=== PATIENT | male | born 1965 | race Caucasian/White ===

== ENCOUNTER → 2017-10-01 13:52 | Outpatient (CLI) | payer MEDICAID, SELFPAY ==
[2017-10-01 14:02] LABS: Microscopic, Urine URINE MICROSCOPIC (MICROSCOPIC)
--- NOTE | 2017-10-01 14:26 | XR_ITS ---
XR chest 2V HISTORY: ITS.REASON: HTN, PRE OP ORDERING PHYSICIAN: Eros Boykin MD PATIENT AGE: 52 years COMPARISON: None available FINDINGS: The cardiomediastinal silhouette and pulmonary vascularity are within normal limits. The lungs are clear without infiltrates, suspicious nodules, or pleural effusions. No acute bony abnormalities. There are degenerative changes in the lower thoracic spine and acromioclavicular joints IMPRESSION: No acute finding
[2017-10-01 14:31] LABS: Basophils # 0.1 K/mm3 (0-0.2); Basophils % 0.8 % (0.1-2.0); Eosinophils # 0.4 K/mm3 (0.0-0.4); Eosinophils % 4.6 % (0.1-12.0); Hematocrit 37.8 % (42.0-52.0); Hemoglobin 11.8 g/dL (14.1-18.0); Lymphocytes # 2.8 K/mm3 (0.7-4.5); Lymphocytes % 33.8 K/mm3 (10-50); Mean Corpuscular HGB Conc 31.1 g/dL (31.8-35.4); Mean Corpuscular Hemoglobin 27.5 pg (27.0-31.2); Mean Corpuscular Volume 88.4 fl (80-94); Mean Platelet Volume 9.4 fl (7.4-10.4); Monocytes # 0.4 K/mm3 (0.1-1.0); Monocytes % 5.2 % (1.7-9.3); Neutrophils # 4.7 K/mm3 (1.8-7.8); Neutrophils % 55.7 % (37.0-80.0); Platelet Count 368 K/mm3 (142-424); Red Blood Count 4.28 M/mm3 (4.60-6.20); Red Cell Distribution Width 13.6 % (11.5-17.5); White Blood Count 8.4 K/mm3 (4.8-10.8)
[2017-10-01 14:34] LABS: Appearance,Urine CLEAR (Clear); Bilirubin,Urine Negative (Negative); Blood, Urine Negative (Negative); Color,Urine YELLOW (Yellow); Glucose,Urine (UA) Negative (Negative); Ketones,Urine Negative (Negative); Leukocyte Esterase,Urine Negative (Negative); Nitrate,Urine Negative (Negative); Protein,Urine TRACE (Negative); Specific Gravity, Urine 1.025 (1.005-1.030); Urobilinogen,Urine 0.2 EU/dl (0.2)
[2017-10-01 15:43] LABS: Bacteria,Urine 1+ /lpf; Mucus,Urine 2+ /lpf; Sperm,Urine 3+ /lpf; Squamous Epithelial Cell,Urine TNTC #/hpf (0-5); WBC,Urine Occasional #/hpf (0-3)
[2017-10-01 16:39] LABS: Alanine Aminotransferase 31 U/L (12-78); Albumin Level 3.5 gm/dL (3.4-5.0); Albumin/Globulin Ratio 1.2 (1.1-1.8); Alkaline Phosphatase 75 U/L (46-116); Anion Gap 10.1 mEq/L (5-15); Aspartate Amino Transferase 24 U/L (15-37); Blood Urea Nitrogen 15 mg/dL (7-18); Calcium 8.9 mg/dL (8.5-10.1); Carbon Dioxide 30 mmol/L (21.0-32.0); Chloride 102 mmol/L (98-107); Creatinine,Serum 1.15 mg/dL (0.70-1.30); Estimated Glomerular Filt Rate > 60 ml/min (>60); GFR (African American) > 60 ML/MIN (>60); Glucose 91 mg/dL (74-106); Potassium 4.1 mmoL/L (3.5-5.1); Sodium 138 mmol/L (136-145); Total Protein,Serum 6.5 gm/dL (6.4-8.2)
[2017-10-01 16:49] LABS: Bilirubin,Total 0.1 mg/dL (0.2-1.0)
== END ==
PROVIDERS: PCP Nurse Practitioner Family; Visit Provider Orthopaedic Surgery
DX: M17.11 Unilateral primary osteoarthritis, right knee (principal); Z01.818 Encounter for other preprocedural examination
CPT/HCPCS: 36415; 71046; 80053; 81001; 85025; 93005

== ENCOUNTER → 2017-10-25 13:50 | Outpatient (CLI) | payer MEDICAID, SELFPAY ==
[2017-10-25 16:23] LABS: Basophils # 0.1 K/mm3 (0-0.2); Basophils % 0.6 % (0.1-2.0); Eosinophils # 0.4 K/mm3 (0.0-0.4); Eosinophils % 4.2 % (0.1-12.0); Hematocrit 42.3 % (42.0-52.0); Lymphocytes # 2.4 K/mm3 (0.7-4.5); Mean Corpuscular Hemoglobin 29.2 pg (27.0-31.2); Mean Corpuscular Volume 88.3 fl (80-94); Mean Platelet Volume 9.9 fl (7.4-10.4); Monocytes # 0.5 K/mm3 (0.1-1.0); Monocytes % 5.9 % (1.7-9.3); Neutrophils # 5.3 K/mm3 (1.8-7.8); Neutrophils % 61.3 % (37.0-80.0); Platelet Count 381 K/mm3 (142-424); Red Blood Count 4.79 M/mm3 (4.60-6.20); White Blood Count 8.7 K/mm3 (4.8-10.8)
[2017-10-25 17:25] LABS: Alanine Aminotransferase 47 U/L (12-78); Albumin Level 3.7 gm/dL (3.4-5.0); Alkaline Phosphatase 86 U/L (46-116); Anion Gap 14.4 mEq/L (5-15); Aspartate Amino Transferase 29 U/L (15-37); Bilirubin,Total 0.2 mg/dL (0.2-1.0); Blood Urea Nitrogen 15 mg/dL (7-18); Calcium 8.9 mg/dL (8.5-10.1); Carbon Dioxide 28 mmol/L (21.0-32.0); Chloride 103 mmol/L (98-107); Creatinine,Serum 1.04 mg/dL (0.70-1.30); Estimated Glomerular Filt Rate 75 ml/min (>60); Free T4 (Free Thyroxine) 0.92 ng/dl (0.76-1.46); GFR (African American) 91 ML/MIN (>60); Globulin 3.6 gm/dl (1.3-3.2); Glucose 179 mg/dL (74-106); Potassium 3.4 mmoL/L (3.5-5.1); Sodium 142 mmol/L (136-145); Thyroid Stimulating Hormone 3.59 uIU/ml (0.358-3.740); Total Protein,Serum 7.3 gm/dL (6.4-8.2)
== END ==
PROVIDERS: PCP Nurse Practitioner Family; Visit Provider Nurse Practitioner Family
DX: M25.562 Pain in left knee (principal); Z01.818 Encounter for other preprocedural examination
CPT/HCPCS: 36415; 80053; 84439; 84443; 85025; 86850

== ENCOUNTER 2017-10-26 17:31 | Inpatient (IN) | payer MEDICAID, SELFPAY ==
[2017-10-01 14:31] VITALS: BMI 41.5
[2017-10-26] VITALS (18 sets, daily range): BP systolic 126–163; BP diastolic 70–96; PULSE 83–108; RESP 16–18; TEMP 36.1–43; O2SAT 94–98
--- NOTE | 2017-10-26 10:06 | HMH.ANESCL ---
[facility] Anesthesia Checklist - Patient Identification Patient Identification: Arm Band, Verbal (Name & ) - Structural Data Admitted From: Home Planned Operative Procedure/s: total knee Consent for Planned Operative Procedure(s) Verified: Yes Verified Documents: Surgical Consent - NPO Status Verified Time NPO: 00:00 - Chart Verification Results Verified: CBC, BMP - Additional verifications Patient : No Anesthesia Reactions: No Hx Blood Transfusions: No Blood Transfusion Reaction: No Cephalosporin Allergy: No Previous Colonoscopy: No - Cardiovascular Assessment Heart Sounds: S1 & S2 Pulse Strength: Strong Pulse Rhythm: Regular Peripheral Edema: No - Airway Assessment C-Spine Mobility Assessed: Yes TMJ Mobility Assessed: Yes Dentition: Edentulous - Neurological Assessment Level of Consciousness: Awake, Alert, Appropriate Hx Seizures: No Numbness or tingling in extremities: No - Anesthesia Plan Anesthesia Risk discussed: Yes ASA Class: III Anesthesia Type: General [facility] Anesthesia HX I have reviewed the patient's past medical history: Yes Medical History: Reports:: Anxiety, Gastroesophageal Reflux Disease(GERD), Hypertension Denies:: Diabetes Mellitus Type 1, Diabetes Mellitus Type 2, Seizures Other Medical History: Reports: Arthritis. Denies: Blood Transfusion Reaction Laterality Cases: Bilateral: Arthroscopy Knee Other Surgeries: Yes: Appendectomy, Colonoscopy, Other (hemorrhoidectomy) Amputation: No Fractures: Yes *Family Hx:: Asthma, Diabetes, Hypertension, Heart Attack
--- NOTE | 2017-10-26 16:11 | HMH.ANESI ---
[facility] Anesthesia Record Part I Intake, IV Amount: 2,200 Estimated blood loss (mL): 20 Urine output (mL): 0 Blood Pressure: 154/90 SaO2: 96 Pulse Rate: 94 Respiratory Rate: 16 Temperature: 97.9 F Patient is:: Drowsy, Stable Stable to PACU at:: 16:10
--- NOTE | 2017-10-26 16:11 | HMH.ANESII ---
[facility] Anesthesia Record Part II Discharge Time: 16:40 Destination: 2nd floor PACU nurse assessment reviewed?: Yes Patient Condition:: Good Anesthesia Complications:: None
--- NOTE | 2017-10-26 16:19 | XR_ITS ---
XR knee RT 2V Ordering Physician: Eros Boykin MD Patient Age: 52 years: Male HISTORY: ITS.REASON: post op TKA Postop portable right knee. Total knee arthroplasty TECHNIQUE: AP and crosstable lateral view right knee postop COMPARISON :Preoperative right knee 05/20/2017 FINDINGS Right PEG a now in place with components good position well seated and satisfactory relationships. No evidence of fracture nor loosening. Postoperative changes are evident with fluid and air within the anterior joint and suprapatellar bursa evident. Soft tissue changes from recent surgery as well. IMPRESSION: Right PEG a now in place appears satisfactory. Good position Postoperative changes
--- NOTE | 2017-10-26 16:31 | HMH.OPNOTE ---
Date of procedure: 10/29/17 Pre-op Diagnosis:: Degenerative arthritis RIGHT knee Post-op diagnosis:: same Procedure performed:: Cemented total knee arthroplasty, RIGHT knee Surgeon:: Eros Boykin MD Step Finisher(s):: Dr. Hitchcock COTTON PICKING MACHINE OPERATOR:: Gregorio Altamirano Anesthesia: GETA Estimated blood loss (mL): 20 Clinical Note:: Patient is a 52-year-old male with end-stage tricompartmental osteoarthritis with [id number] osteoarthritis of the medial compartment with a progressive varus deformity and flexion contracture presented with unremitting severe pain not relieved by conservative management. The pain is advanced to the point that it is becoming a hazard for the patient with risk of falling and injuring himself. Total knee arthroplasty is indicated to relieve the pain, improve function, reduce the risk of falls and improve quality of life. Operative findings:: As noted on the preoperative evaluation, the knee joint had a fixed flexion of 15? and fixed varus deformity of 10?. As seen on the x-rays, the the knee joint had tricompartmental degenerative changes with medial and patellofemoral compartments showing more advanced changes with [id number] appearance. The menisci and anterior cruciate ligament were significantly degenerated. He previously had arthroscopic knee surgery with partial medial meniscectomy and only remnant of the medial meniscus was present. The posteriorly cruciate ligament was intact and stable. There was extensive osteophyte formation over all 3 compartments. Bone quality was good. Operative note:: On the day of the surgery the patient and his were met in the preoperative area. I examined the patient and reviewed the clinical and x-ray findings with the patient. I again discussed the diagnosis, natural history and management options in detail including both nonsurgical and surgical. Patient has end-stage degenerative arthritis of his RIGHT knee and has failed to respond satisfactorily to conservative management so far and has opted for a RIGHT total knee arthroplasty. His knee joint is also giving out and he is at risk of falls resulting in fractures. He mobilizes with a cane. We again discussed the details of the procedure, risks and benefits and alternatives in detail. The complications discussed include but are not limited to infection, injury to nerves and blood vessels including injury to popliteal artery, injury to tendons and ligaments, DVT and PE, fat embolism, intraoperative fracture, limb length inequality, patella fracture, patellofemoral instability, patellar clunk syndrome, quadriceps and patellar tendon rupture, implant failure, component loosening, periprosthetic femur and tibia fractures, stiffness(arthrofibrosis), limp, incomplete relief of pain, incomplete functional recovery, likely need for further surgery in future including revision and anesthetic complications including heart attack, stroke and even . We discussed how any of these events can be devastating. We have discussed nonsurgical alternatives as well. Patient understands and wishes to proceed with a RIGHT total knee arthroplasty. I believe that he is fully informed as to the risks, benefits, and alternatives including nonsurgical alternatives. We also discussed the postoperative course including the rehab and physical therapy required. He lives with his family and is planning to go back home with home health after surgery. A physical examination was performed and documented. Consent form was reviewed and signed. The patient was then brought to the operating room and a general anesthesia was administered by the slab miller operator. Prior to that patient had femoral and sciatic nerve blocks in the pre-anesthetic area. The slab miller operator felt he got a good femoral block but not so good sciatic nerve block. The patient was then positioned supine on the operating table. All the bony prominences were appropriately padded. A well-padded tourniquet cuff was placed high over the
--- NOTE | 2017-10-26 16:48 | P.OP_ITS ---
Date of procedure: 10/29/17 Pre-op Diagnosis:: Degenerative arthritis RIGHT knee Post-op diagnosis:: same Procedure performed:: Cemented total knee arthroplasty, RIGHT knee Surgeon:: Eros Boykin MD Automobile Designer(s):: Dr. Hitchcock ADVANCE AGENT:: Gregorio Altamirano Anesthesia: GETA Estimated blood loss (mL): 20 Clinical Note:: Patient is a 52-year-old male with end-stage tricompartmental osteoarthritis with [id number] osteoarthritis of the medial compartment with a progressive varus deformity and flexion contracture presented with unremitting severe pain not relieved by conservative management. The pain is advanced to the point that it is becoming a hazard for the patient with risk of falling and injuring himself. Total knee arthroplasty is indicated to relieve the pain, improve function, reduce the risk of falls and improve quality of life. Operative findings:: As noted on the preoperative evaluation, the knee joint had a fixed flexion of 15? and fixed varus deformity of 10?. As seen on the x-rays, the the knee joint had tricompartmental degenerative changes with medial and patellofemoral compartments showing more advanced changes with [id number] appearance. The menisci and anterior cruciate ligament were significantly degenerated. He previously had arthroscopic knee surgery with partial medial meniscectomy and only remnant of the medial meniscus was present. The posteriorly cruciate ligament was intact and stable. There was extensive osteophyte formation over all 3 compartments. Bone quality was good. Operative note:: On the day of the surgery the patient and his were met in the preoperative area. I examined the patient and reviewed the clinical and x-ray findings with the patient. I again discussed the diagnosis, natural history and management options in detail including both nonsurgical and surgical. Patient has end- stage degenerative arthritis of his RIGHT knee and has failed to respond satisfactorily to conservative management so far and has opted for a RIGHT total knee arthroplasty. His knee joint is also giving out and he is at risk of falls resulting in fractures. He mobilizes with a cane. We again discussed the details of the procedure, risks and benefits and alternatives in detail. The complications discussed include but are not limited to infection, injury to nerves and blood vessels including injury to popliteal artery, injury to tendons and ligaments, DVT and PE, fat embolism, intraoperative fracture, limb length inequality, patella fracture, patellofemoral instability, patellar clunk syndrome, quadriceps and patellar tendon rupture, implant failure, component loosening, periprosthetic femur and tibia fractures, stiffness(arthrofibrosis), limp, incomplete relief of pain, incomplete functional recovery, likely need for further surgery in future including revision and anesthetic complications including heart attack, stroke and even . We discussed how any of these events can be devastating. We have discussed nonsurgical alternatives as well. Patient understands and wishes to proceed with a RIGHT total knee arthroplasty. I believe that he is fully informed as to the risks, benefits, and alternatives including nonsurgical alternatives. We also discussed the postoperative course including the rehab and physical therapy required. He lives with his family and is planning to go back home with home health after surgery. A physical examination was performed and documented. Consent form was reviewed and signed. The patient was then brought to the operating room and a general anesthesia was administered by the systems project manager. Prior to that patient had femoral and sciatic nerve blocks in the pre-anesthetic area. The systems project manager felt he got a good
--- NOTE | 2017-10-26 19:10 | PC.NURSE ---
PT FULL CODE, REPORT FROM LAURA.CRL
--- NOTE | 2017-10-26 21:10 | PC.NURSE ---
PT C/O RT EYE BURNING/ITCHING. STATES HAS SINCE RETURNING FROM SURGERY, BUT NOT LEFT ONE. HAS BEEN EXAMINED AND IRRIGATED WITH SALINE SEVERAL TIMES. ALSO HAS HAD COMPRESS ON IT. WILL CONTACT R/T RAJWINDER FLOWER.
--- NOTE | 2017-10-26 21:40 | PC.NURSE ---
SPOKE WITH DR. PENDLETON. ORDER OBTAINED FOR BENADRYL 25MG PO EVERY 6HR PRN ITCHING. MED GIVEN
--- NOTE | 2017-10-26 23:30 | PC.NURSE ---
RT KNEE IMMOBILIZER PLACED ON RT LEG, CONTINUES WITH POLAR AGUSTIN WELL
[2017-10-27] VITALS (9 sets, daily range): BP systolic 115–162; BP diastolic 68–96; PULSE 80–100; RESP 16–22; TEMP 36.7–37.2; O2SAT 92–100
--- NOTE | 2017-10-27 00:42 | PC.NURSE ---
pt has a knee mobilizer & polar pack in place on rt knee
--- NOTE | 2017-10-27 02:08 | PC.NURSE ---
pt has polar pack & knee mobilizer on rt knee
--- NOTE | 2017-10-27 04:37 | PC.NURSE ---
pt has polar pack and knee mobilizer to rt knee
--- NOTE | 2017-10-27 04:41 | PC.NURSE ---
PT ONLY SLEPT FEW SHORT INTERVALS. BEGINNING OF SHIFT C/O RT EYE BURNING/ITCHING, WAS EXTREMELY RED. HAS BEEN EXAMINED, WELL IRRIGATED WITH SALINE. CONTACTED DR. PENDLETON, OBTAINED BENADRYL ORDER. AFTER MED GIVEN. REDNESS ALMOST COMPLETELY GONE PT STATES FEELS MUCH BETTER. HAS REQUIRED EXTRA PRN PAIN MED FOR BREAKTHROUGH PAIN. PT INITIALLY WAS HAVING DIFFICULTY VOIDING., BUT HAS SINCE VOIDED 775 MLS OF THIS TIME. AT BEDSIDE. KNEE IMMOBILIZER ON. WELL POLAR AGUSTIN. PT STABLE. IV SECURE AND PATENT. WILL CONTINUE TO MONITOR. REPORT TO BE GIVEN TO ONCOMING NURSE.
[2017-10-27 07:02] LABS: Basophils % 0.1 % (0.1-2.0); Hematocrit 34.9 % (42.0-52.0); Hemoglobin 11.2 g/dL (14.1-18.0); Lymphocytes # 1.9 K/mm3 (0.7-4.5); Lymphocytes % 14.9 K/mm3 (10-50); Mean Corpuscular HGB Conc 32.1 g/dL (31.8-35.4); Mean Corpuscular Hemoglobin 28.8 pg (27.0-31.2); Mean Corpuscular Volume 89.6 fl (80-94); Mean Platelet Volume 8.6 fl (7.4-10.4); Monocytes # 0.9 K/mm3 (0.1-1.0); Monocytes % 6.9 % (1.7-9.3); Neutrophils # 10.1 K/mm3 (1.8-7.8); Platelet Count 299 K/mm3 (142-424); Red Blood Count 3.89 M/mm3 (4.60-6.20); Red Cell Distribution Width 14.4 % (11.5-17.5); White Blood Count 12.9 K/mm3 (4.8-10.8)
[2017-10-27 07:05] LABS: Anion Gap 12.6 mEq/L (5-15); Blood Urea Nitrogen 19 mg/dL (7-18); Carbon Dioxide 27 mmol/L (21.0-32.0); Chloride 104 mmol/L (98-107); Creatinine Clearance Estimated 69 mL/min (0-300); Creatinine,Serum 1.43 mg/dL (0.70-1.30); Estimated Glomerular Filt Rate 52 ml/min (>60); GFR (African American) 63 ML/MIN (>60); Glucose 123 mg/dL (74-106); Potassium 3.6 mmoL/L (3.5-5.1); Sodium 140 mmol/L (136-145)
--- NOTE | 2017-10-27 08:42 | PC.NURSE ---
PT HAS KNEE MOBILIZER IN PLACE & POLAR PACK TO RT KNEE
--- NOTE | 2017-10-27 08:58 | HMH.CONS ---
*Admission Date: 10/26/17 *Chief complaint: knee pain *History of present illness: this wm has progressive knee pain and had rt knee total replacement by dr beebe- we are asked to follow for his ongoing med issues of htn, overweight and hyperlipidemia - no diabetes or tob and no ht disease [facility] History I have reviewed the patient's past medical history: Yes Medical History: Reports:: Anxiety, Gastroesophageal Reflux Disease(GERD), Hyperlipidemia, Hypertension Denies:: Cancer, Diabetes Mellitus Type 1, Diabetes Mellitus Type 2, MRSA, Seizures Other Medical History: Reports: Arthritis. Denies: Blood Transfusion Reaction Laterality Cases: Right: Total Knee Replacement, Bilateral: Arthroscopy Knee Other Surgeries: Yes: Appendectomy, Colonoscopy, Other (hemorrhoidectomy) Amputation: No Fractures: Yes - *Social History Educational Level: Attended High School Smoking Status: Never smoker Alcohol Intake: never Occupational Status: unemployed, disabled Housing: house Household Members: spouse, children - Psychiatric History Expresses thoughts of harming self/others: None Suicide Plan Description: No Plan Pschychiatric History:: Reports:: Anxiety *Family Hx:: Asthma, Diabetes, Hypertension, Heart Attack Review of Systems - Review of Systems Review of systems:: pertinent systems reviewed and negative unless documented below - Constitutional Denies fever(s) - Eyes Denies change in vision - ENT Denies sore throat - *Cardiovascular Denies chest pain at rest, Denies chest pain with activity - *Respiratory Denies chest congestion, Denies cough, Denies coughing up blood - *Gastrointestinal Denies abdominal pain - *Musculoskeletal Reports joint pain, Reports limited joint movement, Denies joint swelling - Integumentary/Breasts Denies rash - *Neurologic Denies dizziness, Denies seizure-like activity - Psychiatric Denies anxiety, Denies depression Meds Home Medications Medication Instructions Recorded Confirmed Type Mupirocin Calcium [Bactroban Nasal 1 applic INTRANASAL BID 10/01/17 10/26/17 History 2% UD Oint 1gm] Ferrous Sulfate [Ferrous Sulfate 325 mg PO BID 10/09/17 10/26/17 History 325mg Tablet] Allergies Allergy/AdvReac Type Severity Reaction Status Date / Time No Known Allergies Allergy Verified 10/06/17 09:58 Exam Vital signs and Labs for Last 24 Hours: Temp Pulse Resp BP Pulse Ox 98.1 F 83 22 115/75 92 L 10/27/17 08:00 10/27/17 08:00 10/27/17 08:00 10/27/17 08:00 10/27/17 08:00 Laboratory Results - last 24 hr 10/27/17 06:15: WBC 12.9 H D, RBC 3.89 L, Hgb 11.2 L, Hct 34.9 L, MCV 89.6, MCH 28.8, MCHC 32.1, RDW 14.4, Plt Count 299, MPV 8.6, Neut % (Auto) 78.0, Lymph % (Auto) 14.9, [place] % (Auto) 6.9, Eos % (Auto) 0.0 L, Baso % (Auto) 0.1, Neut # (Auto) 10.1 H, Lymph # (Auto) 1.9, [place] # (Auto) 0.9, Eos # (Auto) 0.0, Baso # (Auto) 0.0 10/27/17 06:15: Sodium 140, Potassium 3.6, Chloride 104, Carbon Dioxide 27, Anion Gap 12.6, BUN 19 H D, Creatinine 1.43 H D, Estimated Creat Clear 69, Estimated GFR 52 L, Est GFR ( Amer) 63 D, Glucose 123 H I & O for Last 24 hours: Intake & Output 10/24/17 10/25/17 10/26/17 10/27/17 11:59 11:59 11:59 11:59 Intake Total 4954 / 4954 Output Total 1350 / 1350 Balance 3604 / 3604 - Constitutional no acute distress - *Routine HEENT Exam Head: Present: normocephalic, atraumatic Eye: Present: EOMI, PERRL ENT: Present: mucous membranes dry - *Routine Neck Exam Present: supple. Absent: JVD - *Routine Respiratory Exam Present: rhonchi. Absent: respiratory distress - *Routine Cardiovascular Exam Present: RRR, murmur - *Routine Abdominal Exam Present: soft. Absent: tenderness, distended - *Routine Extremities Exam Comments: s/p rt knee surg - *Routine Skin Exam Present: intact - *Routine Neurological Exam Present: alert, oriented X3, CN II-XII intact - Routine Psychiatric Exam
--- NOTE | 2017-10-27 09:01 | P.CONS_ITS ---
*Admission Date: 10/26/17 *Chief complaint: knee pain *History of present illness: this wm has progressive knee pain and had rt knee total replacement by dr beebe - we are asked to follow for his ongoing med issues of htn, overweight and hyperlipidemia - no diabetes or tob and no ht disease [facility] History I have reviewed the patient's past medical history: Yes Medical History: Reports:: Anxiety, Gastroesophageal Reflux Disease(GERD), Hyperlipidemia, Hypertension Denies:: Cancer, Diabetes Mellitus Type 1, Diabetes Mellitus Type 2, MRSA, Seizures Other Medical History: Reports: Arthritis. Denies: Blood Transfusion Reaction Laterality Cases: Right: Total Knee Replacement, Bilateral: Arthroscopy Knee Other Surgeries: Yes: Appendectomy, Colonoscopy, Other (hemorrhoidectomy) Amputation: No Fractures: Yes - *Social History Educational Level: Attended High School Smoking Status: Never smoker Alcohol Intake: never Occupational Status: unemployed, disabled Housing: house Household Members: spouse, children - Psychiatric History Expresses thoughts of harming self/others: None Suicide Plan Description: No Plan Pschychiatric History:: Reports:: Anxiety *Family Hx:: Asthma, Diabetes, Hypertension, Heart Attack Review of Systems - Review of Systems Review of systems:: pertinent systems reviewed and negative unless documented below - Constitutional Denies fever(s) - Eyes Denies change in vision - ENT Denies sore throat - *Cardiovascular Denies chest pain at rest, Denies chest pain with activity - *Respiratory Denies chest congestion, Denies cough, Denies coughing up blood - *Gastrointestinal Denies abdominal pain - *Musculoskeletal Reports joint pain, Reports limited joint movement, Denies joint swelling - Integumentary/Breasts Denies rash - *Neurologic Denies dizziness, Denies seizure-like activity - Psychiatric Denies anxiety, Denies depression Meds Home Medications Medication Instructions Recorded Confirmed Type Mupirocin Calcium [Bactroban Nasal 1 applic INTRANASAL BID 10/01/17 10/26/17 History 2% UD Oint 1gm] Ferrous Sulfate [Ferrous Sulfate 325 mg PO BID 10/09/17 10/26/17 History 325mg Tablet] Allergies Allergy/AdvReac Type Severity Reaction Status Date / Time No Known Allergies Allergy Verified 10/06/17 09:58 Exam Vital signs and Labs for Last 24 Hours: Temp Pulse Resp BP Pulse Ox 98.1 F 83 22 115/75 92 L 10/27/17 08:00 10/27/17 08:00 10/27/17 08:00 10/27/17 08:00 10/27/17 08:00 Laboratory Results - last 24 hr 10/27/17 06:15: WBC 12.9 H D, RBC 3.89 L, Hgb 11.2 L, Hct 34.9 L, MCV 89.6, MCH 28.8, MCHC 32.1, RDW 14.4, Plt Count 299, MPV 8.6, Neut % (Auto) 78.0, Lymph % ( Auto) 14.9, [place] % (Auto) 6.9, Eos % (Auto) 0.0 L, Baso % (Auto) 0.1, Neut # ( Auto) 10.1 H, Lymph # (Auto) 1.9, [place] # (Auto) 0.9, Eos # (Auto) 0.0, Baso # ( Auto) 0.0 10/27/17 06:15: Sodium 140, Potassium 3.6, Chloride 104, Carbon Dioxide 27, Anion Gap 12.6, BUN 19 H D, Creatinine 1.43 H D, Estimated Creat Clear 69, Estimated GFR 52 L, Est GFR ( Amer) 63 D, Glucose 123 H I & O for Last 24 hours: Intake & Output 10/24/17 10/25/17 10/26/17 10/27/17 11:59 11:59 11:59 11:59 Intake Total 4954 / 4954 Output Total 1350 / 1350 Balance 3604 / 3604 - Constitutional
--- NOTE | 2017-10-27 09:31 | P.CONPHA_ITS ---
[facility] Pharmacy VTE Monitoring - Patient Demographics Admission date: 10/26/17 Report Date: 10/27/17 Time: 09:30 Allergies/Adverse Reactions: Patient Allergies No Known Allergies Allergy (Verified 10/06/17 09:58) Height: 1.85 m Weight: 142.882 kg Patient Problems: Current Active Problems Overweight (Acute) HTN (hypertension) (Acute) Renal insufficiency (Acute) - VTE Risk Labs: VTE Related Lab Results Hgb 11.2 g/dL (14.1-18.0) L 10/27/17 06:15 Hct 34.9 % (42.0-52.0) L 10/27/17 06:15 Plt Count 299 K/mm3 (142-424) 10/27/17 06:15 BUN 19 mg/dL (7-18) H D 10/27/17 06:15 Creatinine 1.43 mg/dL (0.70-1.30) H D 10/27/17 06:15 Estimated Creat Clear 69 mL/min (0-300) 10/27/17 06:15 Was VTE Risk Assessment Performed: Yes VTE Score: 3 VTE Risk Level: Low Risk - Prophylaxis VTE Prophylaxis Ordered?: Yes Types of VTE Prophylaxis: IPCS Thigh High, Pharmacological Location of Applied Device: Left Leg Pharmacologic Type: Other (XARELTO ALSO ORDERED) - VTE Diagnosis Confirmed Treatment or plan recommended: Continue Current Treatment
--- NOTE | 2017-10-27 10:14 | HMH.PTEV ---
Physical Therapy Evaluation Rehab PT IP Evaluation Start: 10/27/17 09:00 Freq: DAILYP Status: Active Protocol: Document 10/27/17 09:10 PHORNE (Rec: 10/27/17 10:14 PHORNE [id number]) Subjective/History History History 52 yom adm to [facility] with right knee OA, now S/P right TKA. Subjective Subjective Pt reports c/o pain in right knee as expected post surgery. Rehab PT IP Eval Objective Appearance Patient Behavior Appropriate Cooperative Patient Orientation Person Place Time Difficulty following instructions none Speech Pattern Clear Appropriate Ambulation Patient Able to Ambulate Yes Ambulation Observation IP General Gait Pattern Observation Antalgic Gait Decrease Weight Bear (R) Ambulation Distance (feet) 15 Ambulation Assistive Device Rolling Walker Balance Ability to Arise Able, w/o using arms Sitting Balance Steady, safe Standing Balance Steady, wide stance Dynamic Sitting Balance Ability Normal Dynamic Standing Balance Ability Good Transfers Bed Transfer Ability Independent Chair Transfer Ability Contact Guard/Hand Hold Sit to Stand Bed Transfer Ability Contact Guard/Hand Hold Sit to Stand Chair Transfer Ability Contact Guard/Hand Hold Pain Right Knee Pain Intensity 5 ROM RLE PT ROM Status ABN Abnormal ROM Comment 5-75 knee ext/flex MMT RLE PT MMT ABN Abnormal MMT Grade grossly 4/5 except knee flex/ ext 2/5 Rehab PT IP prob,goals,plan Problems Date of Evaluation: 10/27/17 PT IP Problems Transfers Gait Rehab Potential Rehab Potential Good Equipment Needs Assistive Devices Rolling / Wheeled Walker Plan PT Intervention Plan Transfers Gait Therapeutic Exercise PT Plan Frequency BID Duration LOS Discharge Goals Sit to Stand Chair Transfer Ability Supervision/Stand by Ambulation Assistive Device Rolling Walker Ambulation Distance (feet) 30 Discharge Plan PT Discharge Plan Pt is appropriate to return home once medically stable. G -code Required Yes Eval Complexity Eval Charge Codes 75447 - Moderate Complexity G Codes PT Current Status Mobility PT Current S
--- NOTE | 2017-10-27 12:34 | HMH.ORTHPN ---
Subjective Date: 10/27/17 Time: 11:30 Principal diagnosis: Status post right total knee arthroplasty Interval history: Patient is status post RIGHT total knee arthroplasty post op day #1. Patient is lying down in bed. Says he is doing well and reports no problems. Patient reports moderate knee pain and says it's well-controlled with medication. Patient still reports some paresthesias in the lower leg and foot from the nerve blocks. No history of any nausea or vomiting. No history of any cough, chest pain, shortness of breath or palpitations. Patient is eating and drinking well. Patient says he managed to walk well in the room with the help of physical therapy using a walker. PN: Obj Ex Vital signs: Temp Pulse Resp BP Pulse Ox 98.4 F 80 18 136/86 94 L 10/27/17 12:00 10/27/17 12:00 10/27/17 12:00 10/27/17 12:00 10/27/17 12:00 Narrative: Laboratory Results - last 24 hr 10/27/17 06:15: WBC 12.9 H D, RBC 3.89 L, Hgb 11.2 L, Hct 34.9 L, MCV 89.6, MCH 28.8, MCHC 32.1, RDW 14.4, Plt Count 299, MPV 8.6, Neut % (Auto) 78.0, Lymph % (Auto) 14.9, Levy % (Auto) 6.9, Eos % (Auto) 0.0 L, Baso % (Auto) 0.1, Neut # (Auto) 10.1 H, Lymph # (Auto) 1.9, Levy # (Auto) 0.9, Eos # (Auto) 0.0, Baso # (Auto) 0.0 10/27/17 06:15: Sodium 140, Potassium 3.6, Chloride 104, Carbon Dioxide 27, Anion Gap 12.6, BUN 19 H D, Creatinine 1.43 H D, Estimated Creat Clear 69, Estimated GFR 52 L, Est GFR ( Amer) 63 D, Glucose 123 H Exam General appearance: alert, active, awake, no acute distress ENT: normal exam; mucous membranes moist Neck: Soft and supple, trachea midline, full range of movements Cardiovascular: regular rate & rhythm, S1-S2 heard, normal peripheral pulses Respiratory: clear to auscultation, normal breath sounds Abdomen: Soft and nontender, normal bowel sounds Neuro: alert, oriented x 3, eligibility clerk II-XII normal as tested, no deficits Psych: normal and appropriate mood/affect; communicates well Extremities: On examination of the right knee, a knee immobilizer is in place. On examination out of the knee immobilizer, dressings are clean, dry and intact. Knee range of motion is 10-90? of flexion. Distal pulses are 2+. Capillary refill is brisk. Patient has paresthesias over the right leg and foot from the nerve blocks. Thigh and calf are soft and nontender. Progress Note: A&P (1) Primary osteoarthritis of right knee Status: Chronic Current Visit: Yes (2) S/P total knee arthroplasty Status: Acute Assessment and plan: Status post RIGHT total knee arthroplasty, postoperative day #1, doing well I reviewed the intraoperative findings and procedure with the patient. I have given a paper copy of the postoperative knee x-ray to the patient. Patient started physical therapy and mobilization today with the help of physical therapist. Discontinue IV fluids as eating and drinking well. Discontinue ENGINEER SYSTEM ADMINISTRATOR and continue oral and IV as needed pain medication. Continue DVT prophylaxis. Care management consult regarding discharge planning-patient wants to go home with appropriate equipment, home health/physical therapy. Medical management as per Dr. Ko. Current Visit: Yes
--- NOTE | 2017-10-27 12:38 | PC.NURSE ---
COAT HANGER SHAPER MACHINE OPERATOR MORPHINE PUMP DC'D AT THIS TIME, PATIENT RATING HIS PAIN A 10/10 WILL GET HIM OXYCODONE 10MG NOW ORDERED.
--- NOTE | 2017-10-27 12:51 | P.PN_ITS ---
Subjective Date: 10/27/17 Time: 11:30 Principal diagnosis: Status post right total knee arthroplasty Interval history: Patient is status post RIGHT total knee arthroplasty post op day #1. Patient is lying down in bed. Says he is doing well and reports no problems. Patient reports moderate knee pain and says it's well-controlled with medication. Patient still reports some paresthesias in the lower leg and foot from the nerve blocks. No history of any nausea or vomiting. No history of any cough, chest pain, shortness of breath or palpitations. Patient is eating and drinking well. Patient says he managed to walk well in the room with the help of physical therapy using a walker. PN: Obj Ex Vital signs: Temp Pulse Resp BP Pulse Ox 98.4 F 80 18 136/86 94 L 10/27/17 12:00 10/27/17 12:00 10/27/17 12:00 10/27/17 12:00 10/27/17 12:00 Narrative: Laboratory Results - last 24 hr 10/27/17 06:15: WBC 12.9 H D, RBC 3.89 L, Hgb 11.2 L, Hct 34.9 L, MCV 89.6, MCH 28.8, MCHC 32.1, RDW 14.4, Plt Count 299, MPV 8.6, Neut % (Auto) 78.0, Lymph % ( Auto) 14.9, [place] % (Auto) 6.9, Eos % (Auto) 0.0 L, Baso % (Auto) 0.1, Neut # ( Auto) 10.1 H, Lymph # (Auto) 1.9, [place] # (Auto) 0.9, Eos # (Auto) 0.0, Baso # ( Auto) 0.0 10/27/17 06:15: Sodium 140, Potassium 3.6, Chloride 104, Carbon Dioxide 27, Anion Gap 12.6, BUN 19 H D, Creatinine 1.43 H D, Estimated Creat Clear 69, Estimated GFR 52 L, Est GFR ( Amer) 63 D, Glucose 123 H Exam General appearance: alert, active, awake, no acute distress ENT: normal exam; mucous membranes moist Neck: Soft and supple, trachea midline, full range of movements Cardiovascular: regular rate & rhythm, S1-S2 heard, normal peripheral pulses Respiratory: clear to auscultation, normal breath sounds Abdomen: Soft and nontender, normal bowel sounds Neuro: alert, oriented x 3, asset manager II-XII normal as tested, no deficits Psych: normal and appropriate mood/affect; communicates well Extremities: On examination of the right knee, a knee immobilizer is in place. On examination out of the knee immobilizer, dressings are clean, dry and intact. Knee range of motion is 10-90? of flexion. Distal pulses are 2+. Capillary refill is brisk. Patient has paresthesias over the right leg and foot from the nerve blocks. Thigh and calf are soft and nontender. Progress Note: A&P (1) Primary osteoarthritis of right knee Status: Chronic Current Visit: Yes (2) S/P total knee arthroplasty Status: Acute Assessment and plan: Status post RIGHT total knee arthroplasty, postoperative day #1, doing well I reviewed the intraoperative findings and procedure with the patient. I have given a paper copy of the postoperative knee x-ray to the patient. Patient started physical therapy and mobilization today with the help of physical therapist. Discontinue IV fluids as eating and drinking well. Discontinue RUBBER FLAP CUTTER and continue oral and IV as needed pain medication. Continue DVT prophylaxis. Care management consult regarding discharge planning-patient wants to go home with appropriate equipment, home health/physical therapy. Medical management as per Dr. Ko. Current Visit: Yes
--- NOTE | 2017-10-27 18:57 | PC.NURSE ---
PATIENT HAVING ALOT OF DIFFICULTIES GETTING PAIN UNDER CONTROL, JUST CALLED DR. PENDLETON AGAIN AND GOT AN ADDITIONAL OXYCODONE TABLET AND HE HAS CHANGED HIS MORPHINE TO 4MG IVP TO Q 3 INSTEAD OF 4 HOURS.
[2017-10-28 04:00] VITALS: BP 134/84; PULSE 83; RESP 16; TEMP 37.1; O2SAT 96
--- NOTE | 2017-10-28 04:26 | PC.NURSE ---
PT HAS BEEN AWAKE MOST OF NIGHT. PT PAIN OUT OF CONTROL ON INITIAL ROUNDS. PT STATES PAIN MUCH IMPROVED THIS AM. RIGHT KNEE WITH BRACE ON. AND POLAR PACK IN USE. VOIDING PER URINAL WITHOUT DIFFICULTY. HAS REMAINED AT [facility].
--- NOTE | 2017-10-28 05:53 | PC.NURSE ---
pt has [polar pack to rt knee
--- NOTE | 2017-10-28 07:49 | PC.NURSE ---
REPORT FROM BERTA Pinto RN.
[2017-10-28 08:00] VITALS: BP 156/84; PULSE 96; RESP 18; TEMP 37.1; O2SAT 94
[2017-10-28 09:56] VITALS: RESP 20; O2SAT 98
--- NOTE | 2017-10-28 11:01 | PC.NURSE ---
PATIENT WOULD BENEFIT FROM A ROLLING WALKER FOR STABILITY PURPOSES RELATED TO POST RIGHT KNEE REPLACEMENT. THE USE OF A CANE WOULD NOT ENABLE PATIENT TO HIS FULL CAPACITY. GWENDOLYN CORCORAN, MSN, RN
--- NOTE | 2017-10-28 11:17 | SW/DCPLANNER ---
Received an order for a rolling walker for this patient: I went in to speak with patient and he chose [facility], a rolling walker will be delivered to his room today prior to being discharged to home...
--- NOTE | 2017-10-28 13:32 | P.PN_ITS ---
Subjective Date: 10/28/17 Time: 12:00 Principal diagnosis: Status post right total knee arthroplasty Interval history: Patient is status post RIGHT total knee arthroplasty post op day #2. Patient is lying down in bed. Says he is doing well and reports no problems. Patient reports moderate knee pain and says it's well-controlled with medication. Patient reports that he had severe pain yesterday evening but is well controlled now with medication. No history of any nausea or vomiting. No history of any cough, chest pain, shortness of breath or palpitations. Patient is eating and drinking well. Patient says he is managing to walk well with the help of physical therapy using a walker. PN: Obj Ex Vital signs: Temp Pulse Resp BP Pulse Ox 98.7 F 96 H 20 156/84 98 10/28/17 08:00 10/28/17 08:00 10/28/17 09:56 10/28/17 08:00 10/28/17 09:56 Narrative: Exam General appearance: alert, active, awake, no acute distress ENT: normal exam; mucous membranes moist Neck: Soft and supple, trachea midline, full range of movements Cardiovascular: regular rate & rhythm, S1-S2 heard, normal peripheral pulses Respiratory: clear to auscultation, normal breath sounds Abdomen: Soft and nontender, normal bowel sounds Neuro: alert, oriented x 3, refrigeration engineer II-XII normal as tested, no deficits Psych: normal and appropriate mood/affect; communicates well Extremities: On examination of the right knee, a knee immobilizer is in place. On examination out of the knee immobilizer, there is little bit of blood staining of the dressings at the upper part of the incision. We have changed the dressings today. The incision looks clean, and healthy. There is moderate amount of knee effusion. No erythema, induration or discharge noted. Knee range of motion is 5-100? of flexion. Distal pulses are 2+. Capillary refill is brisk. Sensation is intact to light touch throughout. Thigh and calf are soft and nontender. Progress Note: A&P (1) Primary osteoarthritis of right knee Status: Chronic Current Visit: Yes (2) S/P total knee arthroplasty Status: Acute Assessment and plan: Status post RIGHT total knee arthroplasty, postoperative day #2, doing well. I reviewed the findings and progress with the patient and his . Also reviewed his vital signs, medication, medical progress note, on discussed with the nursing staff. Patient is doing well and progressing well with the physical therapy. His dressings were changed today and the incision is clean, dry and healthy. Discontinue IV fluids as eating and drinking well. Had some issues with pain management yesterday but his pain is now well controlled with as needed oral and IV pain medication. Continue oral and IV as needed pain medication. Continue DVT prophylaxis. Likely discharge home tomorrow-patient wants to go home with appropriate equipment, home health/physical therapy. Medical management as per Dr. Ko. Current Visit: Yes
[2017-10-28 16:00] VITALS: BP 138/68; PULSE 80; RESP 18; TEMP 37.2; O2SAT 95
--- NOTE | 2017-10-28 18:54 | PC.NURSE ---
52 YEAR OLD WHITE MALE PRESENTED TO THE HOSPITAL ON 10/25/17 FOR A RIGHT TOTAL KNEE REPLACEMENT. HE HAS REQUIRED PAIN MEDICATION ON A REGULAR BASIS TODAY, EVERY 3 TO 6 HOURS. PATIENT PLANS TO DISCHARGE HOME TOMORROW WITH HOME HEALTH FOR PHYSICAL THERAPY FOR A FEW WEEKS. DR. PENDLETON VISITED AT BED SIDE TODAY AND CHANGED DRESSING TO RIGHT KNEE. STERI STRIPS ARE IN PLACE. PATIENT UP WITH PHYSICAL THERAPY TODAY IN THE [facility] AND HAS BEEN DOING EXERCISES IN THE BED. HE USES HIS INCENTIVE SPIROMETER ON A REGULAR BASIS. HIS IS AT BEDSIDE. DURING DR. PENDLETON'S VISIT HE DISCONTINUED HIS IV FLUIDS. HE CONTINUES TO USE THE POLAR PACK TO HIS RIGHT KNEE AND HE IS TO TAKE THIS HOME WITH HIM. HE HAS SCUDS TO LEFT LEG. HE HAS BEEN UP IN THE ROOM AND TO THE BATHROOM SEVERAL TIMES TODAY. WILL CONTINUE TO MONITOR. GWENDOLYN CORCORAN, MSN, RN
[2017-10-28 20:00] VITALS: BP 154/91; PULSE 88; RESP 18; TEMP 37.3; O2SAT 93
--- NOTE | 2017-10-28 20:04 | PC.NURSE ---
REPORT GIVEN TO Yani HUGO RN
[2017-10-29 04:00] VITALS: BP 134/86; PULSE 75; RESP 16; TEMP 37.1; O2SAT 95
[2017-10-29 07:38] VITALS: BP 143/74; PULSE 85; RESP 18; TEMP 36.7; O2SAT 95
--- NOTE | 2017-10-29 12:21 | HMH.DCSUM ---
General - General Admission date: 10/26/17 Discharge date: 10/29/17 HPI HPI: Patient is a 52-year-old male with advanced degenerative joint disease of the right knee was admitted electively following an uncomplicated primary right total knee replacement on 10/07/2017. Patient has history of hypertension, obesity and hyperlipidemia. His postop course was uneventful. He progressed well with physical therapy and also regained good quadriceps control. Objective Vital signs: Temp Pulse Resp BP Pulse Ox 98.1 F 85 18 143/74 95 10/29/17 07:38 10/29/17 07:38 10/29/17 07:38 10/29/17 07:38 10/29/17 07:38 Narrative: Laboratory Tests 10/27/17 10/27/17 06:15 06:15 WBC 12.9 H D RBC 3.89 L Hgb 11.2 L Hct 34.9 L MCV 89.6 MCH 28.8 MCHC 32.1 RDW 14.4 Plt Count 299 MPV 8.6 Neut % (Auto) 78.0 Lymph % (Auto) 14.9 [place] % (Auto) 6.9 Eos % (Auto) 0.0 L Baso % (Auto) 0.1 Neut # (Auto) 10.1 H Lymph # (Auto) 1.9 [place] # (Auto) 0.9 Eos # (Auto) 0.0 Baso # (Auto) 0.0 Sodium 140 Potassium 3.6 Chloride 104 Carbon Dioxide 27 Anion Gap 12.6 BUN 19 H D Creatinine 1.43 H D Estimated Creat Clear 69 Estimated GFR 52 L Est GFR ( Amer) 63 D Glucose 123 H no acute distress, obese, cooperative - *Routine Respiratory Exam Present: CTA bilaterally - *Routine Cardiovascular Exam Present: RRR, Normal S1, Normal S2 - *Routine Abdominal Exam Present: soft, normoactive bowel sounds - *Routine Extremities Exam Present: edema, normal capillary refill Comments: On examination of the right knee, a knee immobilizer is in place. On examination out of the knee immobilizer, the dressings are clean dry and intact. We have changed the dressings today. The incision looks clean, and healthy. There is moderate amount of knee effusion. No erythema, induration or discharge noted. Knee range of motion is 5-100? of flexion. He is able to actively straight leg raise. Distal pulses are 2+. Capillary refill is brisk. Sensation is intact to light touch throughout. Thigh and calf are soft and nontender. No signs of DVT noted. - *Routine Skin Exam Present: intact, normal turgor - *Routine Neurological Exam Present: alert, oriented X3, CN II-XII intact - Routine Psychiatric Exam Present: normal affect, normal thought process, cooperative, good insight Hospital Course Hospital Course: Patient underwent an uncomplicated straightforward primary right total knee arthroplasty on 10/26/2017. Following surgery patient progressed well without any complications. His postoperative check x-ray was satisfactory with good alignment and fixation of the components. His postop course was satisfactory and uneventful. He progressed rapidly with physical therapy and was able to mobilize using a walker. He also regained good quadriceps control and was able to actively straight leg raise at the time of discharge. His pain is well controlled with as needed oral Percocet. The dressings were changed on the second postoperative day and also at the time of discharge and the wound is healthy and healing well. No signs of any erythema induration or discharge. He was started on Xarelto 10 mg daily for DVT for prophylaxis after surgery. His neurovascular status in both lower extremities is intact. Pedal pulses 2+ bilaterally and fully sensate distally. No clinical evidence of DVT noted. Patient was cleared for discharge by physical therapy. On the day of discharge, the wound is clean and dry. The patient's vital signs have been stable throughout and he is afebrile at the time of discharge. He is being discharged home with home health and physical therapy. Following his admission after surgery, Dr. Ko was consulted for management of his medical problems. Our recommendations on discharge include physical therapy with weightbearing as tolerated and range of motion exercises of
--- NOTE | 2017-10-29 12:24 | P.DS_ITS ---
General - General Admission date: 10/26/17 Discharge date: 10/29/17 HPI HPI: Patient is a 52-year-old male with advanced degenerative joint disease of the right knee was admitted electively following an uncomplicated primary right total knee replacement on 10/07/2017. Patient has history of hypertension, obesity and hyperlipidemia. His postop course was uneventful. He progressed well with physical therapy and also regained good quadriceps control. Objective Vital signs: Temp Pulse Resp BP Pulse Ox 98.1 F 85 18 143/74 95 10/29/17 07:38 10/29/17 07:38 10/29/17 07:38 10/29/17 07:38 10/29/17 07:38 Narrative: Laboratory Tests 10/27/17 10/27/17 06:15 06:15 WBC 12.9 H D RBC 3.89 L Hgb 11.2 L Hct 34.9 L MCV 89.6 MCH 28.8 MCHC 32.1 RDW 14.4 Plt Count 299 MPV 8.6 Neut % (Auto) 78.0 Lymph % (Auto) 14.9 [place] % (Auto) 6.9 Eos % (Auto) 0.0 L Baso % (Auto) 0.1 Neut # (Auto) 10.1 H Lymph # (Auto) 1.9 [place] # (Auto) 0.9 Eos # (Auto) 0.0 Baso # (Auto) 0.0 Sodium 140 Potassium 3.6 Chloride 104 Carbon Dioxide 27 Anion Gap 12.6 BUN 19 H D Creatinine 1.43 H D Estimated Creat Clear 69 Estimated GFR 52 L Est GFR ( Amer) 63 D Glucose 123 H no acute distress, obese, cooperative - *Routine Respiratory Exam Present: CTA bilaterally - *Routine Cardiovascular Exam Present: RRR, Normal S1, Normal S2 - *Routine Abdominal Exam Present: soft, normoactive bowel sounds - *Routine Extremities Exam Present: edema, normal capillary refill Comments: On examination of the right knee, a knee immobilizer is in place. On examination out of the knee immobilizer, the dressings are clean dry and intact. We have changed the dressings today. The incision looks clean, and healthy. There is moderate amount of knee effusion. No erythema, induration or discharge noted. Knee range of motion is 5-100? of flexion. He is able to actively straight leg raise. Distal pulses are 2+. Capillary refill is brisk. Sensation is intact to light touch throughout. Thigh and calf are soft and nontender. No signs of DVT noted. - *Routine Skin Exam Present: intact, normal turgor - *Routine Neurological Exam Present: alert, oriented X3, CN II-XII intact - Routine Psychiatric Exam Present: normal affect, normal thought process, cooperative, good insight Hospital Course Hospital Course: Patient underwent an uncomplicated straightforward primary right total knee arthroplasty on 10/26/2017. Following surgery patient progressed well without any complications. His postoperative check x-ray was satisfactory with good alignment and fixation of the components. His postop course was satisfactory and uneventful. He progressed rapidly with physical therapy and was able to mobilize using a walker. He also regained good quadriceps control and was able to actively straight leg raise at the time of discharge. His pain is well controlled with as needed oral Percocet. The dressings were changed on the second postoperative day and also at the time of discharge and the wound is healthy and healing well. No signs of any erythema induration or discharge. He was started on Xarelto 10 mg daily for
--- NOTE | 2017-10-29 14:14 | SW/DCPLANNER ---
RECEIVED AN ORDER FOR THIS PATIENT TO HAVE HOME HEALTH PT/OT SERVICES...PATIENT DISCHARGED HOME TODAY AND WILL USE [facility] HEALTH [facility]ENC[facility]...SERVICES TO START IN THE AM....WILL FOLLOW UP TO MAKE SURE PATIENT HAS BENEFITS WITH HIS PASSPORT...
[2017-10-29 20:17] VITALS: BP 118/74; PULSE 105; RESP 20; TEMP 36.6; O2SAT 100
== END 2017-10-29 13:54 | disposition home health service (06) | DRG 470 ==
LOC: 2ND 10-27 09:21
PROVIDERS: Admitting Provider Orthopaedic Surgery; Family Provider Nurse Practitioner Family; PCP Nurse Practitioner Family; Visit Provider Orthopaedic Surgery
PROC: 0SRC0J9 Replacement of Right Knee Joint with Synthetic Substitute, Cemented, Open Approach (ICD-10-PCS; CPT 27447; principal; 2017-10-26 11:00)
DX: M17.11 Unilateral primary osteoarthritis, right knee (principal)
CPT/HCPCS: 27447; 36415; 73560; 80048; 80053; 84439; 84443; 85025; 86850; 97116; 97162; C1765; C1776; J2270; J2405; J2710

== ENCOUNTER → 2017-12-17 13:09 | Outpatient (CLI) | payer MEDICAID, SELFPAY ==
--- NOTE | 2017-12-17 13:13 | XR_ITS ---
XR knee RT 2V HISTORY: Follow-up knee replacement ITS.REASON: postoperative RT TKA ORDERING PHYSICIAN: Eros Boykin MD PATIENT AGE: 52 years COMPARISON: 10/26/2017 FINDINGS: Status post total knee arthroplasty with good alignment of the prosthesis. Soft tissue gas has resolved. There remains some soft tissue swelling in the suprapatellar region. IMPRESSION: Good alignment status post total knee arthroplasty. No complications apparent
== END ==
PROVIDERS: PCP Emergency Medicine; Visit Provider Orthopaedic Surgery
DX: Z96.651 Presence of right artificial knee joint (principal)
CPT/HCPCS: 73560

== ENCOUNTER → 2018-01-07 08:08 | Outpatient (CLI) | payer MEDICAID, SELFPAY ==
[2018-01-07 14:35] LABS: Amphetamine/Metha Screen,Urine Negative ng/mL (<1000); Barbiturates Screen,Urine Negative ng/mL (<200); Benzodiazepines Screen,Urine Negative ng/mL (200); Cannabinoid Screen,Urine Positive ng/mL (<50); Cocaine Screen,Urine Negative ng/g (<300); Methadone Screen,Urine Negative ng/mL (<300); Opiate Screen,Urine Positive ng/mL (<300); Phencyclidine Screen,Urine Negative ng/mL (<25)
== END ==
PROVIDERS: Visit Provider Nurse Practitioner Family
DX: Z79.899 Other long term (current) drug therapy (principal)
CPT/HCPCS: 80305

== ENCOUNTER → 2018-03-05 09:29 | Outpatient (REF) | payer MEDICAID, SELFPAY ==
[2018-03-08 13:51] LABS: Amphetamine/Metha Screen,Urine Negative ng/mL (<1000); Barbiturates Screen,Urine Negative ng/mL (<200); Benzodiazepines Screen,Urine Negative ng/mL (200); Cannabinoid Screen,Urine Positive ng/mL (<50); Cocaine Screen,Urine Negative ng/g (<300); Methadone Screen,Urine Negative ng/mL (<300); Opiate Screen,Urine Negative ng/mL (<300); Phencyclidine Screen,Urine Negative ng/mL (<25)
== END ==
LOC: LAB 09:29
PROVIDERS: Visit Provider Nurse Practitioner Family
DX: Z79.899 Other long term (current) drug therapy (principal)
CPT/HCPCS: 80305

== ENCOUNTER → 2018-07-29 13:46 | Outpatient (CLI) | payer MEDICARE, MEDICAID, SELFPAY ==
[2018-07-29 14:42] LABS: Amphetamine/Metha Screen,Urine Negative ng/mL (<1000); Barbiturates Screen,Urine Negative ng/mL (<200); Benzodiazepines Screen,Urine Negative ng/mL (<200); Cannabinoid Screen,Urine Positive ng/mL (<50); Cocaine Screen,Urine Negative ng/mL (<300); Methadone Screen,Urine Negative ng/mL (<300); Opiate Screen,Urine Negative ng/mL (<300); Phencyclidine Screen,Urine Negative ng/mL (<25)
[2018-07-29 15:57] LABS: Alanine Aminotransferase 201 U/L (12-78); Albumin Level 4.2 gm/dL (3.4-5.0); Albumin/Globulin Ratio 1.1 (1.1-1.8); Alkaline Phosphatase 92 U/L (46-116); Anion Gap 17.3 mEq/L (5-15); Aspartate Amino Transferase 162 U/L (15-37); Bilirubin,Total 0.4 mg/dL (0.2-1.0); Blood Urea Nitrogen 16 mg/dL (7-18); Calcium 9.6 mg/dL (8.5-10.1); Carbon Dioxide 26 mmol/L (21.0-32.0); Chloride 99 mmol/L (98-107); Chol/HDL Ratio 6.2 (1-3.5); Cholesterol 231 mg/dL (140-200); Creatinine,Serum 1.12 mg/dL (0.70-1.30); Estimated Glomerular Filt Rate 69 ml/min (>60); GFR (African American) 83 ML/MIN (>60); Globulin 3.8 gm/dl (1.3-3.2); Glucose 96 mg/dL (74-106); HDL Cholesterol 37 mg/dL (27-67); LDL Cholesterol 149 mg/dL (0-130); Potassium 4.3 mmoL/L (3.5-5.1); Sodium 138 mmol/L (136-145); T4 (Thyroxine) 9.7 ug/dl (4.7-13.3); Triglycerides 226 mg/dL (30-200); VLDL Cholesterol 45 mg/dL (0-40)
[2018-07-29 16:08] LABS: Basophils # 0.1 K/mm3 (0-0.2); Basophils % 0.9 % (0.1-2.0); Eosinophils # 0.2 K/mm3 (0.0-0.4); Eosinophils % 2.7 % (0.1-12.0); Hemoglobin 14.6 g/dL (14.1-18.0); Lymphocytes # 2.1 K/mm3 (0.7-4.5); Lymphocytes % 24.8 K/mm3 (10-50); Mean Corpuscular HGB Conc 33.2 g/dL (31.8-35.4); Mean Corpuscular Hemoglobin 29.2 pg (27.0-31.2); Mean Corpuscular Volume 88.1 fl (80-94); Mean Platelet Volume 10.5 fl (7.4-10.4); Monocytes # 0.5 K/mm3 (0.1-1.0); Monocytes % 6.2 % (1.7-9.3); Neutrophils # 5.5 K/mm3 (1.8-7.8); Neutrophils % 65.4 % (37.0-80.0); Platelet Count 447 K/mm3 (142-424); Red Blood Count 4.99 M/mm3 (4.60-6.20); Red Cell Distribution Width 13.1 % (11.5-17.5); White Blood Count 8.4 K/mm3 (4.8-10.8)
[2018-07-31 18:42] LABS: Vitamin D 25 Hydroxy 13.8 ng/mL (30.0-100.0)
[2018-07-31 18:43] LABS: Microalbumin, Urine 15.4 ug/mL (Not Estab.)
== END ==
LOC: LAB 13:48 → LAB.DROPOF 07-30 10:15
PROVIDERS: PCP Nurse Practitioner Family; Visit Provider Nurse Practitioner Family
DX: R53.83 Other fatigue (principal); E66.3 Overweight; Z79.899 Other long term (current) drug therapy; R82.2 Biliuria; I10 Essential (primary) hypertension; Z53.20 Procedure and treatment not carried out because of patient's decision for unspecified reasons
CPT/HCPCS: 80053; 80061; 80305; 82043; 82652; 84436; 84443; 85025

== ENCOUNTER → 2018-08-09 12:00 | Outpatient (CLI) | payer MEDICARE, MEDICAID, SELFPAY ==
[2018-08-10 08:23] LABS: Hep A Ab, IgM Negative (Negative); Hepatitis B Core Antibody IgM Negative (Negative); Hepatitis B Surface Antigen Negative (Negative)
[2018-08-10 11:46] LABS: Hepatitis C Antibody <0.1 s/co ratio (0.0-0.9)
== END ==
PROVIDERS: Visit Provider Nurse Practitioner Family
DX: R94.5 Abnormal results of liver function studies (principal); R53.83 Other fatigue
CPT/HCPCS: 36415; 80074

== ENCOUNTER → 2018-08-16 06:19 | Outpatient (CLI) | payer MEDICARE, MEDICAID, SELFPAY ==
--- NOTE | 2018-08-16 08:12 | NM_ITS ---
CARDIOLITE SPECT MYOCARDIAL PERFUSION SCAN, REST AND STRESS: EXERCISE STRESS [facility] REVIEW QGS EF AND WALL MOTION EVALUATION: QPS - PERFUSION EVALUATION HISTORY: SOB, HTN DOSE: 10.31 mCi technetium 99m mibi intravenously at rest followed by 32.4 mCi technetium 99m mibi following the intravenous ministration of 0.4 mg of Lexiscan. Resting blood pressure is 128/72. Stress blood pressure 122/69. FINDINGS: Ejection fraction is calculated to be 67%. Stress images reveal decreased activity in the inferior wall with no significant change at rest. There is a slight decreased activity in a portion of the septum with rest which was not present during stress images. Clinical correlation is advised. Normal ejection fraction normal wall motion IMPRESSION:
--- NOTE | 2018-08-16 08:21 | HMH.ITSHM ---
Current Home Medications as stated by this patient Edmar Baker or business services representative. []FENOFIBRATE LOSARTAN OMEPRAZOLE BISOPROLOL ESCITALOPRAM ATORVASTATIN AMLODIPINE HYDROCHLOROTHIAZIDE GABAPENTIN TRAMADOL
== END ==
PROVIDERS: PCP Emergency Medicine; Visit Provider Internal Medicine Cardiovascular Disease
DX: R06.09 Other forms of dyspnea (principal); G47.33 Obstructive sleep apnea (adult) (pediatric); E66.01 Morbid (severe) obesity due to excess calories; E78.5 Hyperlipidemia, unspecified; I10 Essential (primary) hypertension; K29.60 Other gastritis without bleeding; R94.31 Abnormal electrocardiogram [ECG] [EKG]; Z68.41 Body mass index [BMI] 40.0-44.9, adult
CPT/HCPCS: 78452; 93017; 93306; A9502; J2785

== ENCOUNTER → 2018-09-24 13:45 | Outpatient (CLI) | payer MEDICARE, MEDICAID, SELFPAY ==
[2018-09-24 13:58] LABS: Amphetamine/Metha Screen,Urine Negative ng/mL (<1000); Barbiturates Screen,Urine Negative ng/mL (<200); Benzodiazepines Screen,Urine Negative ng/mL (<200); Cannabinoid Screen,Urine Positive ng/mL (<50); Cocaine Screen,Urine Negative ng/mL (<300); Methadone Screen,Urine Negative ng/mL (<300); Opiate Screen,Urine Negative ng/mL (<300); Phencyclidine Screen,Urine Negative ng/mL (<25)
[2018-09-24 14:21] LABS: Basophils % 0.5 % (0.1-2.0); Eosinophils # 0.2 K/mm3 (0.0-0.4); Eosinophils % 2.1 % (0.1-12.0); Hematocrit 35.6 % (42.0-52.0); Hemoglobin 11.3 g/dL (14.1-18.0); Lymphocytes # 2.1 K/mm3 (0.7-4.5); Lymphocytes % 26.8 % (10-50); Mean Corpuscular HGB Conc 31.6 g/dL (31.8-35.4); Mean Corpuscular Hemoglobin 26.9 pg (27.0-31.2); Mean Corpuscular Volume 85.1 fl (80-94); Mean Platelet Volume 10.4 fl (7.4-10.4); Monocytes # 0.4 K/mm3 (0.1-1.0); Monocytes % 5.5 % (1.7-9.3); Neutrophils # 5.1 K/mm3 (1.8-7.8); Neutrophils % 65.2 % (37.0-80.0); Platelet Count 541 K/mm3 (142-424); Red Blood Count 4.19 M/mm3 (4.60-6.20); Red Cell Distribution Width 13.4 % (11.5-17.5); White Blood Count 7.9 K/mm3 (4.8-10.8)
== END ==
PROVIDERS: Visit Provider Nurse Practitioner Family
DX: Z79.899 Other long term (current) drug therapy (principal)
CPT/HCPCS: 80305; 85025

== ENCOUNTER → 2018-10-04 12:45 | Outpatient (CLI) | payer MEDICARE, MEDICAID, SELFPAY | PROVIDERS: PCP Nurse Practitioner Family; Visit Provider Internal Medicine | DX: G47.33 Obstructive sleep apnea (adult) (pediatric) (principal) | CPT/HCPCS: G0399 ==

== ENCOUNTER → 2018-10-07 10:44 | Outpatient (CLI) | payer MEDICARE, MEDICAID, SELFPAY ==
[2018-10-07 11:28] LABS: Hematocrit 29.7 % (42.0-52.0); Hemoglobin 9.4 g/dL (14.1-18.0)
== END ==
PROVIDERS: Visit Provider Nurse Practitioner Family
DX: D64.9 Anemia, unspecified (principal)
CPT/HCPCS: 36415; 85014; 85018

== ENCOUNTER → 2018-10-11 14:37 | Outpatient (CLI) | payer MEDICARE, MEDICAID, SELFPAY ==
[2018-10-11 14:55] LABS: Basophils # 0.1 K/mm3 (0-0.2); Basophils % 0.7 % (0.1-2.0); Eosinophils # 0.3 K/mm3 (0.0-0.4); Eosinophils % 3.2 % (0.1-12.0); Hematocrit 31.1 % (42.0-52.0); Hemoglobin 9.4 g/dL (14.1-18.0); Lymphocytes # 2.3 K/mm3 (0.7-4.5); Lymphocytes % 29.4 % (10-50); Mean Corpuscular HGB Conc 30.1 g/dL (31.8-35.4); Mean Corpuscular Hemoglobin 25.3 pg (27.0-31.2); Mean Corpuscular Volume 84.2 fl (80-94); Mean Platelet Volume 8.6 fl (7.4-10.4); Monocytes # 0.4 K/mm3 (0.1-1.0); Neutrophils # 4.9 K/mm3 (1.8-7.8); Neutrophils % 61.8 % (37.0-80.0); Platelet Count 473 K/mm3 (142-424); Red Blood Count 3.69 M/mm3 (4.60-6.20); Red Cell Distribution Width 13.6 % (11.5-17.5); White Blood Count 7.9 K/mm3 (4.8-10.8)
== END ==
PROVIDERS: Visit Provider Nurse Practitioner Family
DX: I10 Essential (primary) hypertension (principal)
CPT/HCPCS: 36415; 85025

== ENCOUNTER → 2018-12-29 17:44 | Outpatient (CLI) | payer MEDICARE, MEDICAID, SELFPAY ==
[2018-12-29 18:31] LABS: Basophils # 0.1 K/mm3 (0-0.2); Basophils % 0.6 % (0.1-2.0); Eosinophils # 0.3 K/mm3 (0.0-0.4); Hematocrit 31.9 % (42.0-52.0); Hemoglobin 9.3 g/dL (14.1-18.0); Lymphocytes # 2.1 K/mm3 (0.7-4.5); Lymphocytes % 28.4 % (10-50); Mean Corpuscular Hemoglobin 21.9 pg (27.0-31.2); Mean Corpuscular Volume 75.5 fl (80-94); Mean Platelet Volume 7.7 fl (7.4-10.4); Monocytes # 0.3 K/mm3 (0.1-1.0); Neutrophils # 4.5 K/mm3 (1.8-7.8); Neutrophils % 62.9 % (37.0-80.0); Platelet Count 411 K/mm3 (142-424); Red Blood Count 4.23 M/mm3 (4.60-6.20); Red Cell Distribution Width 19.7 % (11.5-17.5); White Blood Count 7.2 K/mm3 (4.8-10.8)
== END ==
PROVIDERS: Visit Provider Nurse Practitioner Family
DX: I95.9 Hypotension, unspecified (principal)
CPT/HCPCS: 85025

== ENCOUNTER → 2019-01-14 13:19 | Outpatient (CLI) | payer MEDICARE, MEDICAID, SELFPAY ==
[2019-01-14 13:43] LABS: Basophils # 0.1 K/mm3 (0-0.2); Basophils % 0.7 % (0.1-2.0); Eosinophils # 0.3 K/mm3 (0.0-0.4); Eosinophils % 3.3 % (0.1-12.0); Hematocrit 42.4 % (42.0-52.0); Hemoglobin 12.7 g/dL (14.1-18.0); Lymphocytes # 2.2 K/mm3 (0.7-4.5); Lymphocytes % 27.4 % (10-50); Mean Corpuscular Hemoglobin 24.6 pg (27.0-31.2); Mean Corpuscular Volume 81.8 fl (80-94); Mean Platelet Volume 10.3 fl (7.4-10.4); Monocytes # 0.3 K/mm3 (0.1-1.0); Neutrophils # 5.2 K/mm3 (1.8-7.8); Neutrophils % 64.5 % (37.0-80.0); Platelet Count 612 K/mm3 (142-424); Red Blood Count 5.18 M/mm3 (4.60-6.20); Red Cell Distribution Width 24.7 % (11.5-17.5)
== END ==
PROVIDERS: Visit Provider Nurse Practitioner Family
DX: K92.2 Gastrointestinal hemorrhage, unspecified (principal)
CPT/HCPCS: 85025

== ENCOUNTER → 2019-02-09 10:38 | Outpatient (CLI) | payer MEDICARE, MEDICAID, SELFPAY ==
[2019-02-09 11:09] LABS: Basophils # 0.1 K/mm3 (0-0.2); Eosinophils # 0.8 K/mm3 (0.0-0.4); Eosinophils % 8.7 % (0.1-12.0); Hematocrit 43.7 % (42.0-52.0); Hemoglobin 13.8 g/dL (14.1-18.0); Lymphocytes # 1.9 K/mm3 (0.7-4.5); Lymphocytes % 20.6 % (10-50); Mean Corpuscular HGB Conc 31.6 g/dL (31.8-35.4); Mean Corpuscular Hemoglobin 27.9 pg (27.0-31.2); Mean Corpuscular Volume 88.1 fl (80-94); Mean Platelet Volume 9.1 fl (7.4-10.4); Monocytes # 0.4 K/mm3 (0.1-1.0); Neutrophils # 6.1 K/mm3 (1.8-7.8); Neutrophils % 65.8 % (37.0-80.0); Platelet Count 352 K/mm3 (142-424); Red Blood Count 4.96 M/mm3 (4.60-6.20); White Blood Count 9.3 K/mm3 (4.8-10.8)
[2019-02-09 11:16] LABS: Activated Partial Thrombo Time 25.7 seconds (23.6-34.0); INR 0.99 (0.9-1.1); Prothrombin Time 10.3 seconds (9.4-11.8)
[2019-02-09 11:57] LABS: Blood Urea Nitrogen 13 mg/dL (7-18); Calcium 9.3 mg/dL (8.5-10.1); Carbon Dioxide 26 mmol/L (21.0-32.0); Chloride 103 mmol/L (98-107); Creatinine,Serum 1.47 mg/dL (0.70-1.30); Estimated Glomerular Filt Rate 50 ml/min (>60); GFR (African American) 61 ML/MIN (>60); Glucose 166 mg/dL (74-106); Sodium 141 mmol/L (136-145)
== END ==
PROVIDERS: Visit Provider Colon & Rectal Surgery
DX: Z01.818 Encounter for other preprocedural examination (principal); Z51.81 Encounter for therapeutic drug level monitoring; K61.0 Anal abscess
CPT/HCPCS: 36415; 80048; 85025; 85610; 85730

== ENCOUNTER → 2019-05-11 13:36 | Outpatient (CLI) | payer MEDICARE, MEDICAID, SELFPAY ==
[2019-05-11 14:07] LABS: Basophils # 0.1 K/mm3 (0-0.2); Basophils % 0.8 % (0.1-2.0); Eosinophils # 0.4 K/mm3 (0.0-0.4); Eosinophils % 3.9 % (0.1-12.0); Hematocrit 46.1 % (42.0-52.0); Hemoglobin 14.8 g/dL (14.1-18.0); Lymphocytes # 2.6 K/mm3 (0.7-4.5); Lymphocytes % 28.2 % (10-50); Mean Corpuscular HGB Conc 32.2 g/dL (31.8-35.4); Mean Corpuscular Volume 96.4 fl (80-94); Mean Platelet Volume 9.1 fl (7.4-10.4); Monocytes # 0.5 K/mm3 (0.1-1.0); Monocytes % 5.7 % (1.7-9.3); Neutrophils # 5.7 K/mm3 (1.8-7.8); Neutrophils % 61.4 % (37.0-80.0); Platelet Count 507 K/mm3 (142-424); Red Blood Count 4.78 M/mm3 (4.60-6.20); Red Cell Distribution Width 13.2 % (11.5-17.5); White Blood Count 9.3 K/mm3 (4.8-10.8)
[2019-05-11 15:36] LABS: Amphetamine/Metha Screen,Urine Negative ng/mL (<1000); Barbiturates Screen,Urine Negative ng/mL (<200); Benzodiazepines Screen,Urine Negative ng/mL (<200); Cannabinoid Screen,Urine Positive ng/mL (<50); Cocaine Screen,Urine Negative ng/mL (<300); Methadone Screen,Urine Negative ng/mL (<300); Opiate Screen,Urine Negative ng/mL (<300); Phencyclidine Screen,Urine Negative ng/mL (<25)
[2019-05-11 16:00] LABS: Alanine Aminotransferase 117 U/L (12-78); Albumin Level 4.1 gm/dL (3.4-5.0); Alkaline Phosphatase 70 U/L (46-116); Anion Gap 15.2 mEq/L (5-15); Aspartate Amino Transferase 86 U/L (15-37); Bilirubin,Total 0.4 mg/dL (0.2-1.0); Blood Urea Nitrogen 13 mg/dL (7-18); Carbon Dioxide 30 mmol/L (21.0-32.0); Chloride 101 mmol/L (98-107); Chol/HDL Ratio 7.4 (1-3.5); Cholesterol 237 mg/dL (140-200); Creatinine,Serum 1.16 mg/dL (0.70-1.30); Estimated Glomerular Filt Rate 66 ml/min (>60); Free T4 (Free Thyroxine) 1.07 ng/dl (0.76-1.46); GFR (African American) 80 ML/MIN (>60); Glucose 100 mg/dL (74-106); HDL Cholesterol 32 mg/dL (27-67); LDL Cholesterol 159 mg/dL (0-130); Potassium 4.2 mmoL/L (3.5-5.1); Sodium 142 mmol/L (136-145); Thyroid Stimulating Hormone 2.54 uIU/ml (0.358-3.740); Total Protein,Serum 8.1 gm/dL (6.4-8.2); Triglycerides 230 mg/dL (30-200); VLDL Cholesterol 46 mg/dL (0-40)
[2019-05-11 16:48] LABS: Hemoglobin A1C 6.6 % (0.0-7.0)
[2019-05-13 18:01] LABS: Vitamin D 25 Hydroxy 13.3 ng/mL (30.0-100.0)
[2019-05-13 18:05] LABS: Microalbumin, Urine 3.3 ug/mL (Not Estab.)
== END ==
PROVIDERS: Visit Provider Nurse Practitioner Family
DX: Z79.899 Other long term (current) drug therapy (principal); R53.83 Other fatigue; E78.5 Hyperlipidemia, unspecified; E66.01 Morbid (severe) obesity due to excess calories; Z68.41 Body mass index [BMI] 40.0-44.9, adult; D72.829 Elevated white blood cell count, unspecified; I10 Essential (primary) hypertension; E55.9 Vitamin D deficiency, unspecified
CPT/HCPCS: 80053; 80061; 80305; 82043; 82652; 83036; 84439; 84443; 85025

== ENCOUNTER → 2019-07-18 12:07 | Outpatient (CLI) | payer MEDICARE, MEDICAID, SELFPAY ==
[2019-07-18 12:28] LABS: Basophils # 0.1 K/mm3 (0-0.2); Basophils % 0.7 % (0.1-2.0); Eosinophils # 0.4 K/mm3 (0.0-0.4); Eosinophils % 4.7 % (0.1-12.0); Hematocrit 40.9 % (42.0-52.0); Hemoglobin 13.3 g/dL (14.1-18.0); Lymphocytes # 2.2 K/mm3 (0.7-4.5); Lymphocytes % 28.8 % (10-50); Mean Corpuscular HGB Conc 32.4 g/dL (31.8-35.4); Mean Corpuscular Hemoglobin 31.1 pg (27.0-31.2); Mean Platelet Volume 9.4 fl (7.4-10.4); Monocytes # 0.4 K/mm3 (0.1-1.0); Monocytes % 4.9 % (1.7-9.3); Neutrophils # 4.7 K/mm3 (1.8-7.8); Platelet Count 322 K/mm3 (142-424); Red Blood Count 4.27 M/mm3 (4.60-6.20); Red Cell Distribution Width 13.1 % (11.5-17.5); White Blood Count 7.7 K/mm3 (4.8-10.8)
[2019-07-18 13:42] LABS: Alanine Aminotransferase 111 U/L (12-78); Albumin Level 3.6 gm/dL (3.4-5.0); Albumin/Globulin Ratio 1.1 (1.1-1.8); Alkaline Phosphatase 67 U/L (46-116); Aspartate Amino Transferase 80 U/L (15-37); Bilirubin,Total 0.3 mg/dL (0.2-1.0); Blood Urea Nitrogen 18 mg/dL (7-18); Calcium 9.5 mg/dL (8.5-10.1); Carbon Dioxide 30 mmol/L (21.0-32.0); Chloride 102 mmol/L (98-107); Creatinine,Serum 1.31 mg/dL (0.70-1.30); Estimated Glomerular Filt Rate 57 ml/min (>60); GFR (African American) 69 ML/MIN (>60); Globulin 3.2 gm/dl (1.3-3.2); Glucose 127 mg/dL (74-106); Sodium 141 mmol/L (136-145); Total Protein,Serum 6.8 gm/dL (6.4-8.2)
== END ==
PROVIDERS: Visit Provider Nurse Practitioner Family
DX: Z53.20 Procedure and treatment not carried out because of patient's decision for unspecified reasons (principal); I10 Essential (primary) hypertension
CPT/HCPCS: 36415; 80053; 85025

== ENCOUNTER → 2019-08-10 11:59 | Outpatient (CLI) | payer MEDICARE, MEDICAID, SELFPAY ==
[2019-08-10 12:53] LABS: Basophils # 0.1 K/mm3 (0-0.2); Basophils % 0.9 % (0.1-2.0); Eosinophils # 0.4 K/mm3 (0.0-0.4); Eosinophils % 4.7 % (0.1-12.0); Hematocrit 46.1 % (42.0-52.0); Hemoglobin 14.7 g/dL (14.1-18.0); Lymphocytes # 2.4 K/mm3 (0.7-4.5); Lymphocytes % 27.1 % (10-50); Mean Corpuscular HGB Conc 31.8 g/dL (31.8-35.4); Mean Corpuscular Hemoglobin 30.8 pg (27.0-31.2); Mean Corpuscular Volume 96.8 fl (80-94); Mean Platelet Volume 10.3 fl (7.4-10.4); Monocytes # 0.5 K/mm3 (0.1-1.0); Monocytes % 5.2 % (1.7-9.3); Neutrophils # 5.5 K/mm3 (1.8-7.8); Neutrophils % 62.1 % (37.0-80.0); Platelet Count 392 K/mm3 (142-424); Red Blood Count 4.76 M/mm3 (4.60-6.20); Red Cell Distribution Width 13.7 % (11.5-17.5); White Blood Count 8.9 K/mm3 (4.8-10.8)
[2019-08-10 13:51] LABS: Alanine Aminotransferase 149 U/L (12-78); Albumin/Globulin Ratio 1.1 (1.1-1.8); Alkaline Phosphatase 74 U/L (46-116); Anion Gap 14.4 mEq/L (5-15); Aspartate Amino Transferase 115 U/L (15-37); Bilirubin,Total 0.3 mg/dL (0.2-1.0); Blood Urea Nitrogen 11 mg/dL (7-18); Calcium 9.8 mg/dL (8.5-10.1); Carbon Dioxide 29 mmol/L (21.0-32.0); Chloride 101 mmol/L (98-107); Creatinine,Serum 1.02 mg/dL (0.70-1.30); Estimated Glomerular Filt Rate 76 ml/min (>60); GFR (African American) 92 ML/MIN (>60); Globulin 3.6 gm/dl (1.3-3.2); Glucose 104 mg/dL (74-106); Potassium 4.4 mmoL/L (3.5-5.1); Sodium 140 mmol/L (136-145); Total Protein,Serum 7.6 gm/dL (6.4-8.2)
[2019-08-10 16:43] LABS: Amphetamine/Metha Screen,Urine Negative ng/mL (<1000); Barbiturates Screen,Urine Negative ng/mL (<200); Benzodiazepines Screen,Urine Negative ng/mL (<200); Cannabinoid Screen,Urine Positive ng/mL (<50); Cocaine Screen,Urine Negative ng/mL (<300); Methadone Screen,Urine Negative ng/mL (<300); Opiate Screen,Urine Negative ng/mL (<300); Phencyclidine Screen,Urine Negative ng/mL (<25)
== END ==
PROVIDERS: Nurse Practitioner Family; Visit Provider Internal Medicine
DX: N17.9 Acute kidney failure, unspecified (principal); Z79.899 Other long term (current) drug therapy
CPT/HCPCS: 36415; 80053; 80305; 85025

== ENCOUNTER → 2019-08-10 14:02 | Outpatient (CLI) | payer MEDICARE, MEDICAID, SELFPAY | PROVIDERS: Visit Provider Nurse Practitioner Family | DX: Z79.899 Other long term (current) drug therapy (principal) | CPT/HCPCS: 36415; 80053; 80305; 85025 ==

== ENCOUNTER → 2019-10-14 13:56 | Outpatient (CLI) | payer MEDICARE, MEDICAID, SELFPAY ==
[2019-10-14 15:55] LABS: Amphetamine/Metha Screen,Urine Negative ng/mL (<1000); Barbiturates Screen,Urine Negative ng/mL (<200); Benzodiazepines Screen,Urine Negative ng/mL (<200); Cannabinoid Screen,Urine Positive ng/mL (<50); Cocaine Screen,Urine Negative ng/mL (<300); Methadone Screen,Urine Negative ng/mL (<300); Opiate Screen,Urine Negative ng/mL (<300); Phencyclidine Screen,Urine Negative ng/mL (<25)
== END ==
PROVIDERS: Visit Provider Nurse Practitioner Family
DX: Z79.899 Other long term (current) drug therapy (principal)
CPT/HCPCS: 80305

== ENCOUNTER → 2020-07-28 09:04 | Outpatient (CLI) | payer MEDICARE, MEDICAID, SELFPAY ==
[2020-07-28 09:20] LABS: Basophils # 0.1 K/mm3 (0-0.2); Basophils % 0.4 % (0.1-2.0); Eosinophils # 0.3 K/mm3 (0.0-0.4); Eosinophils % 2.5 % (0.1-12.0); Hematocrit 41.4 % (42.0-52.0); Lymphocytes # 2.4 K/mm3 (0.7-4.5); Lymphocytes % 19.3 % (10-50); Mean Corpuscular HGB Conc 31.3 g/dL (31.8-35.4); Mean Corpuscular Hemoglobin 29.3 pg (27.0-31.2); Mean Corpuscular Volume 93.4 fl (80-94); Mean Platelet Volume 8.3 fl (7.4-10.4); Monocytes # 0.5 K/mm3 (0.1-1.0); Monocytes % 3.8 % (1.7-9.3); Neutrophils # 9.2 K/mm3 (1.8-7.8); Neutrophils % 74.1 % (37.0-80.0); Platelet Count 521 K/mm3 (142-424); Red Blood Count 4.44 M/mm3 (4.60-6.20); Red Cell Distribution Width 13.6 % (11.5-17.5); White Blood Count 12.5 K/mm3 (4.8-10.8)
[2020-07-28 09:53] LABS: Chloride 102 mmol/L (98-107); Sodium 143 mmol/L (136-145)
[2020-07-28 09:54] LABS: Potassium 4.5 mmoL/L (3.5-5.1)
[2020-07-28 09:56] LABS: Alanine Aminotransferase 69 U/L (12-78); Albumin Level 4.5 g/dl (3.5-5.0); Albumin/Globulin Ratio 1.5 (1.1-1.8); Alkaline Phosphatase 63 U/L (38-126); Anion Gap 12.5 mEq/L (5-15); Aspartate Amino Transferase 65 U/L (17-59); Bilirubin,Total 0.4 mg/dl (0.2-1.3); Blood Urea Nitrogen 15 mg/dl (9-20); Calcium 10.2 mg/dl (8.4-10.2); Carbon Dioxide 33 mmol/L (22.0-30.0); Chol/HDL Ratio 4.9 (1-3.5); Cholesterol 237 mg/dl (140-200); Estimated Glomerular Filt Rate 70 ml/min (>60); GFR (African American) 84 ML/MIN (>60); Globulin 3.1 g/dL (1.3-3.2); Glucose 124 mg/dl (74-100); HDL Cholesterol 48 mg/dl (40-60); Total Protein,Serum 7.6 g/dl (6.3-8.2); Triglycerides 197 mg/dl (30-150); VLDL Cholesterol 39 mg/dL (0-40)
[2020-07-28 10:08] LABS: Direct LDL Cholesterol 147.27 mg/dL (100-129)
[2020-07-28 10:13] LABS: T4 (Thyroxine) 10.6 ug/dl (5.53-11.0)
[2020-07-28 10:27] LABS: Thyroid Stimulating Hormone 2.71 uIU/mL (0.465-4.68)
== END ==
PROVIDERS: Visit Provider Nurse Practitioner Family
DX: I10 Essential (primary) hypertension (principal); E78.5 Hyperlipidemia, unspecified; Z53.20 Procedure and treatment not carried out because of patient's decision for unspecified reasons; R53.83 Other fatigue
CPT/HCPCS: 36415; 80053; 80061; 84436; 84443; 85025

== ENCOUNTER → 2020-08-06 11:38 | Outpatient (CLI) | payer MEDICARE, MEDICAID, SELFPAY ==
[2020-08-06 17:46] LABS: Hemoglobin A1C 6.4 % (4.0-6.0)
== END ==
PROVIDERS: Visit Provider Nurse Practitioner Family
DX: R73.09 Other abnormal glucose (principal)
CPT/HCPCS: 36415; 83036

== ENCOUNTER → 2020-11-29 13:51 | Outpatient (CLI) | payer MEDICARE, MEDICAID, SELFPAY ==
[2020-11-29 14:22] LABS: Basophils % 0.5 % (0.1-2.0); Eosinophils # 0.3 K/mm3 (0.0-0.4); Eosinophils % 3.3 % (0.1-12.0); Hematocrit 43.7 % (42.0-52.0); Lymphocytes % 23.8 % (10-50); Mean Corpuscular HGB Conc 31.9 g/dL (31.8-35.4); Mean Corpuscular Volume 87.7 fl (80-94); Mean Platelet Volume 11.6 fl (7.4-10.4); Monocytes # 0.5 K/mm3 (0.1-1.0); Monocytes % 5.8 % (1.7-9.3); Neutrophils # 5.5 K/mm3 (1.8-7.8); Neutrophils % 66.5 % (37.0-80.0); Platelet Count 359 K/mm3 (142-424); Red Blood Count 4.99 M/mm3 (4.60-6.20); Red Cell Distribution Width 14.7 % (11.5-17.5); White Blood Count 8.3 K/mm3 (4.8-10.8)
[2020-11-29 14:29] LABS: Alanine Aminotransferase 24 U/L (12-78); Albumin Level 4.7 g/dl (3.5-5.0); Albumin/Globulin Ratio 1.6 (1.1-1.8); Alkaline Phosphatase 73 U/L (38-126); Anion Gap 13.6 mEq/L (5-15); Aspartate Amino Transferase 32 U/L (17-59); Bilirubin,Total 0.5 mg/dl (0.2-1.3); Blood Urea Nitrogen 15 mg/dl (9-20); Calcium 10.3 mg/dl (8.4-10.2); Carbon Dioxide 25 mmol/L (22.0-30.0); Chloride 103 mmol/L (98-107); Chol/HDL Ratio 5.7 (1-3.5); Cholesterol 227 mg/dl (140-200); Estimated Glomerular Filt Rate 70 ml/min (>60); GFR (African American) 84 ML/MIN (>60); Glucose 118 mg/dl (74-100); HDL Cholesterol 40 mg/dl (40-60); Potassium 4.6 mmoL/L (3.5-5.1); Sodium 137 mmol/L (136-145); Total Protein,Serum 7.7 g/dl (6.3-8.2); Triglycerides 155 mg/dl (30-150); VLDL Cholesterol 31 mg/dL (0-40)
[2020-11-29 14:46] LABS: T4 (Thyroxine) 11.2 ug/dl (5.53-11.0)
[2020-11-29 14:58] LABS: 25-OH Vitamin D, Total < 12.8 ng/mL (30-100)
[2020-11-29 15:00] LABS: Thyroid Stimulating Hormone 1.11 uIU/mL (0.465-4.68)
[2020-11-29 15:01] LABS: Creatinine,Urine Random 108 mg/dL (Not Estab.)
[2020-11-29 15:02] LABS: Hemoglobin A1C 6.6 % (4.0-6.0)
[2020-11-29 15:05] LABS: Microalbumin < 6.000 mg/L (0-16.7)
== END ==
PROVIDERS: Visit Provider Nurse Practitioner Family
DX: E78.5 Hyperlipidemia, unspecified (principal); I10 Essential (primary) hypertension; R53.83 Other fatigue; E11.9 Type 2 diabetes mellitus without complications; Z53.20 Procedure and treatment not carried out because of patient's decision for unspecified reasons; E55.9 Vitamin D deficiency, unspecified
CPT/HCPCS: 80053; 80061; 82043; 82306; 82570; 83036; 84436; 84443; 85025

== ENCOUNTER → 2021-02-27 08:11 | Outpatient (CLI) | payer MEDICARE, MEDICAID, SELFPAY ==
[2021-02-27 08:14] LABS: Microscopic, Urine URINE MICROSCOPIC (MICROSCOPIC)
--- NOTE | 2021-02-27 08:32 | ECG_ITS ---
APPROVED REPORT Exam: Resting ECG HR:50 bpm ECG Measurements Heart Rate 50 AXES CA 166 P 14 QRSd 98 QRS 80 QT 444 T 50 QTc 404 Conclusion Sinus bradycardia Otherwise normal ECG Electronically signed by : Clifford Clarke, 02/27/2021 17:56:31
[2021-02-27 08:58] LABS: Basophils # 0.1 K/mm3 (0-0.2); Basophils % 0.6 % (0.1-2.0); Eosinophils # 0.4 K/mm3 (0.0-0.4); Eosinophils % 5.4 % (0.1-12.0); Hematocrit 41.1 % (42.0-52.0); Hemoglobin 13.2 g/dL (14.1-18.0); Lymphocytes # 2.2 K/mm3 (0.7-4.5); Lymphocytes % 29.2 % (10-50); Mean Corpuscular Hemoglobin 28.3 pg (27.0-31.2); Mean Corpuscular Volume 88.2 fl (80-94); Mean Platelet Volume 9.4 fl (7.4-10.4); Monocytes # 0.4 K/mm3 (0.1-1.0); Monocytes % 5.7 % (1.7-9.3); Neutrophils # 4.6 K/mm3 (1.8-7.8); Neutrophils % 59.2 % (37.0-80.0); Platelet Count 341 K/mm3 (142-424); Red Blood Count 4.66 M/mm3 (4.60-6.20); Red Cell Distribution Width 14.1 % (11.5-17.5); White Blood Count 7.7 K/mm3 (4.8-10.8)
[2021-02-27 09:09] LABS: Appearance,Urine CLEAR (Clear); Bilirubin,Urine Negative (Negative); Blood, Urine Negative (Negative); Color,Urine YELLOW (Yellow); Glucose,Urine (UA) 3+ (Negative); Ketones,Urine Negative (Negative); Leukocyte Esterase,Urine Negative (Negative); Nitrate,Urine Negative (Negative); Protein,Urine Negative (Negative); Urobilinogen,Urine 0.2 EU/dl (0.2)
[2021-02-27 10:30] LABS: Carbon Dioxide 31 mmol/L (22.0-30.0); Chloride 105 mmol/L (98-107); Potassium 5.1 mmoL/L (3.5-5.1); Sodium 140 mmol/L (136-145)
[2021-02-27 10:31] LABS: Anion Gap 9.1 mEq/L (5-15); Blood Urea Nitrogen 16 mg/dl (9-20); Calcium 9.4 mg/dl (8.4-10.2); Estimated Glomerular Filt Rate 63 ml/min (>60); GFR (African American) 76 ML/MIN (>60); Glucose 109 mg/dl (74-100)
== END ==
PROVIDERS: Visit Provider Surgery
DX: K46.9 Unspecified abdominal hernia without obstruction or gangrene (principal); Z01.818 Encounter for other preprocedural examination; Z11.52 Encounter for screening for COVID-19
CPT/HCPCS: 36415; 80048; 81001; 85025; 93005; U0003

== ENCOUNTER 2021-03-01 05:57 | Day surgery (SDC) | payer MEDICARE, MEDICAID, SELFPAY ==
[2021-02-26 11:14] VITALS: BMI 41.0
[2021-03-01] VITALS (13 sets, daily range): BP systolic 133–185; BP diastolic 70–90; PULSE 51–74; RESP 12–20; TEMP 36.3–43; O2SAT 93–96
[2021-03-01 06:33] LABS: POC Glucose,Bedside 113 (70-110)
--- NOTE | 2021-03-01 07:29 | HMH.ANESCL ---
[facility] Anesthesia Checklist - Structural Data Admitted From: Home Planned Operative Procedure/s: umbilical hernia repair Consent for Planned Operative Procedure(s) Verified: Yes - Additional verifications Anesthesia Reactions: No Hx Blood Transfusions: No Blood Transfusion Reaction: No - Airway Assessment C-Spine Mobility Assessed: Yes TMJ Mobility Assessed: Yes Dentition: Edentulous - Neurological Assessment Level of Consciousness: Awake, Alert, Appropriate - Anesthesia Plan Anesthesia Risk discussed: Yes Anesthesia Plan: Verified ASA Class: III Anesthesia Type: General [facility] History I have reviewed the patient's past medical history: Yes Medical History: Reports:: Anxiety, Cancer, Gastroesophageal Reflux Disease(GERD), Hyperlipidemia, Hypertension Denies:: Diabetes Mellitus Type 1, Diabetes Mellitus Type 2, Internal Pacemaker, MRSA, Seizures *Have you ever received a pneumonia vaccine?: No *Have you received a flu vaccine this season?: No Other Medical History: Reports: Arthritis. Denies: Blood Transfusion Reaction Anesthesia experience/problems:: none Laterality Cases: Bilateral: Arthroscopy Knee Other Surgeries: Yes: Appendectomy, Colonoscopy, Other. No: Pacemaker Amputation: No Fractures: Yes - *Social History Last grade of school completed: High school graduate Smoking Status: Never smoker Alcohol Intake: never Alcohol Intake Frequency:: other Substance Use Type: marijuana *Occupational Status:: disabled Housing: house Household Members: spouse, children *Travel in the last 8 weeks: None - Psychiatric History Pschychiatric History:: Reports:: Anxiety Family Hx:: Asthma, Diabetes, Hypertension, Heart Attack
--- NOTE | 2021-03-01 08:12 | HMH.OPNOTE ---
Date of procedure: 03/01/21 Pre-op Diagnosis:: Umbilical hernia with intermittent incarceration Post-op Diagnosis:: Same Procedure performed:: Open umbilical hernia repair with 6.4 cm Ventralex mesh Surgeon:: Sanjiv Phan MD IMPERSONATOR CHARACTER:: Andres Huang Anesthesia: LMA Estimated blood loss (mL): 15 Operative findings:: 2 cm umbilical hernia Intermittently-incarcerated preperitoneal fat 6.4 cm Ventralex mesh placed Operative note:: After informed consent was obtained the patient was taken to the operating room and placed in the supine position. General anesthesia with laryngeal mask airway was achieved. The abdomen was prepped and draped in a sterile fashion. After infiltration with local anesthetic an infraumbilical incision was made. The deep subcutaneous tissue was dissected with scalpel, electrocautery, and with Metzenbaum scissors. The umbilical stump was transected. A fairly large preperitoneal fat mass was elevated as dissection continued towards the stump . The stump was carefully transected with electrocautery. No sign of bowel injury or other complication was noted. A 6.4 cm Ventralex mesh was placed in position and secured with interrupted 0 Ethibond. Primary closure of the defect over the mesh was 0 Ethibond was then completed. The umbilical stump was reapproximated with 2-0 Vicryl. Skin was then closed with 4-0 Monocryl in a running/baseball manner. Dressings were applied and the patient was transferred to recovery in stable condition. Condition: stable Disposition: PACU Specimens:: None Complications:: No immediate
--- NOTE | 2021-03-01 08:18 | P.PN_ITS ---
[facility] Anesthesia Record Part I Intake, IV Amount: 1,500 Estimated blood loss (mL): 0 Urine output (mL): 0 Blood Pressure: 140/81 SaO2: 96 Pulse Rate: 74 Respiratory Rate: 12 Temperature: 97.8 F Patient is:: Awake, Stable Stable to PACU at:: 08:15
--- NOTE | 2021-03-01 09:18 | P.PN_ITS ---
[facility] Anesthesia Record Part II Discharge Time: 08:44 Destination: Surgical Day Care (OP Surgery) PACU nurse assessment reviewed?: Yes Patient Condition:: Good Anesthesia Complications:: None Swallowing reflex intact?: Yes Cyanosis?: No Blood Pressure: 149/81 Pulse Rate: 59 Temperature: 97.6 F Mental Status: Alert & Oriented Pain level:: 0 Nausea and/or vomitting:: None Intake, IV Amount: 1,000
== END 2021-03-01 09:50 | disposition home or self-care (01) ==
LOC: OR 05:58
PROVIDERS: PCP Nurse Practitioner Family; Visit Provider Surgery
DX: K42.0 Umbilical hernia with obstruction, without gangrene (principal); F41.9 Anxiety disorder, unspecified; K21.9 Gastro-esophageal reflux disease without esophagitis; I10 Essential (primary) hypertension; E78.5 Hyperlipidemia, unspecified; Z85.9 Personal history of malignant neoplasm, unspecified; Z88.8 Allergy status to other drugs, medicaments and biological substances; Z79.82 Long term (current) use of aspirin; Z79.899 Other long term (current) drug therapy
CPT/HCPCS: 49587; 82962; 96374; C1781; J2405

== ENCOUNTER → 2021-04-03 15:33 | Outpatient (CLI) | payer MEDICARE, MEDICAID, SELFPAY ==
[2021-04-03 15:45] LABS: Basophils # 0.1 K/mm3 (0-0.2); Basophils % 0.6 % (0.1-2.0); Eosinophils # 0.3 K/mm3 (0.0-0.4); Eosinophils % 3.2 % (0.1-12.0); Hematocrit 41.3 % (42.0-52.0); Hemoglobin 13.7 g/dL (14.1-18.0); Lymphocytes % 28.5 % (10-50); Mean Corpuscular HGB Conc 33.2 g/dL (31.8-35.4); Mean Corpuscular Hemoglobin 28.2 pg (27.0-31.2); Mean Corpuscular Volume 85.1 fl (80-94); Mean Platelet Volume 10.1 fl (7.4-10.4); Monocytes # 0.6 K/mm3 (0.1-1.0); Monocytes % 5.7 % (1.7-9.3); Neutrophils # 6.4 K/mm3 (1.8-7.8); Neutrophils % 61.9 % (37.0-80.0); Platelet Count 412 K/mm3 (142-424); Red Blood Count 4.85 M/mm3 (4.60-6.20); Red Cell Distribution Width 14.5 % (11.5-17.5); White Blood Count 10.4 K/mm3 (4.8-10.8)
== END ==
PROVIDERS: Visit Provider Nurse Practitioner Family
DX: D64.9 Anemia, unspecified (principal)
CPT/HCPCS: 85025

== ENCOUNTER → 2021-06-14 14:28 | Outpatient (CLI) | payer MEDICARE, MEDICAID, SELFPAY ==
[2021-06-14 16:55] LABS: Alanine Aminotransferase 18 U/L (12-78); Albumin Level 3.9 g/dl (3.5-5.0); Albumin/Globulin Ratio 1.4 (1.1-1.8); Alkaline Phosphatase 61 U/L (38-126); Anion Gap 12.7 mEq/L (5-15); Aspartate Amino Transferase 29 U/L (17-59); Bilirubin,Total 0.3 mg/dl (0.2-1.3); Blood Urea Nitrogen 11 mg/dl (9-20); Calcium 9.1 mg/dl (8.4-10.2); Carbon Dioxide 25 mmol/L (22.0-30.0); Chloride 105 mmol/L (98-107); Chol/HDL Ratio 4.1 (1-3.5); Cholesterol 190 mg/dl (140-200); Estimated Glomerular Filt Rate 118 ml/min (>60); GFR (African American) 142 ML/MIN (>60); Globulin 2.7 g/dL (1.3-3.2); Glucose 96 mg/dl (74-100); HDL Cholesterol 46 mg/dl (40-60); Potassium 4.7 mmoL/L (3.5-5.1); Sodium 138 mmol/L (136-145); Total Protein,Serum 6.6 g/dl (6.3-8.2); Triglycerides 114 mg/dl (30-150); VLDL Cholesterol 23 mg/dL (0-40)
[2021-06-14 17:06] LABS: Direct LDL Cholesterol 111.34 mg/dL (100-129)
[2021-06-14 17:13] LABS: 25-OH Vitamin D, Total 28.6 ng/mL (30-100); T4 (Thyroxine) 9.4 ug/dl (5.53-11.0)
[2021-06-14 17:26] LABS: Prostate Specific Ag Screen 0.4 ng/ml (0.0-4.0); Thyroid Stimulating Hormone 1.71 uIU/mL (0.465-4.68)
[2021-06-14 17:41] LABS: Basophils # 0.1 K/mm3 (0-0.2); Basophils % 0.8 % (0.1-2.0); Eosinophils # 0.2 K/mm3 (0.0-0.4); Eosinophils % 2.9 % (0.1-12.0); Hematocrit 39.2 % (42.0-52.0); Hemoglobin 11.9 g/dL (14.1-18.0); Lymphocytes # 1.9 K/mm3 (0.7-4.5); Lymphocytes % 28.3 % (10-50); Mean Corpuscular HGB Conc 30.5 g/dL (31.8-35.4); Mean Corpuscular Hemoglobin 27.2 pg (27.0-31.2); Mean Corpuscular Volume 89.5 fl (80-94); Mean Platelet Volume 10.6 fl (7.4-10.4); Monocytes # 0.5 K/mm3 (0.1-1.0); Monocytes % 7.1 % (1.7-9.3); Neutrophils % 60.9 % (37.0-80.0); Platelet Count 404 K/mm3 (142-424); Red Blood Count 4.39 M/mm3 (4.60-6.20); Red Cell Distribution Width 13.6 % (11.5-17.5); White Blood Count 6.6 K/mm3 (4.8-10.8)
[2021-06-14 18:07] LABS: Hemoglobin A1C 6.6 % (4.0-6.0)
== END ==
PROVIDERS: Visit Provider Nurse Practitioner Family
DX: E11.9 Type 2 diabetes mellitus without complications (principal); E55.9 Vitamin D deficiency, unspecified; E78.5 Hyperlipidemia, unspecified; G89.29 Other chronic pain; I10 Essential (primary) hypertension; Z12.5 Encounter for screening for malignant neoplasm of prostate
CPT/HCPCS: 80053; 80061; 82306; 83036; 84436; 84443; 85025; G0103

== ENCOUNTER → 2021-09-11 15:12 | Outpatient (CLI) | payer MEDICARE, MEDICAID, SELFPAY ==
[2021-09-11 17:06] LABS: Amphetamine/Metha Screen,Urine Negative ng/ml (<1000)
[2021-09-11 17:07] LABS: Barbiturates Screen,Urine Negative ng/ml (<200)
[2021-09-11 17:08] LABS: Benzodiazepines Screen,Urine Negative ng/ml (<200); Cannabinoid Screen,Urine Positive ng/ml (<50)
[2021-09-11 17:10] LABS: Cocaine Screen,Urine Negative ng/ml (<300); Methadone Screen,Urine Negative ng/ml (<300)
[2021-09-11 17:11] LABS: Opiate Screen,Urine Negative ng/ml (<300)
[2021-09-11 17:12] LABS: Phencyclidine Screen,Urine Negative ng/ml (<25)
== END ==
PROVIDERS: Visit Provider Nurse Practitioner Family
DX: G89.29 Other chronic pain (principal)
CPT/HCPCS: 80305

== ENCOUNTER → 2022-03-07 14:23 | Outpatient (CLI) | payer MEDICARE, MEDICAID, SELFPAY ==
[2022-03-07 14:18] LABS: Basophils # 0.1 K/mm3 (0-0.2); Eosinophils # 0.3 K/mm3 (0.0-0.4); Eosinophils % 4.3 % (0.1-12.0); Hematocrit 40.6 % (42.0-52.0); Lymphocytes # 1.8 K/mm3 (0.7-4.5); Lymphocytes % 28.2 % (10-50); Mean Corpuscular Hemoglobin 28.2 pg (27.0-31.2); Mean Corpuscular Volume 88.1 fl (80-94); Mean Platelet Volume 11.4 fl (7.4-10.4); Monocytes # 0.4 K/mm3 (0.1-1.0); Neutrophils # 3.8 K/mm3 (1.8-7.8); Neutrophils % 60.5 % (37.0-80.0); Platelet Count 374 K/mm3 (142-424); Red Blood Count 4.61 M/mm3 (4.60-6.20); Red Cell Distribution Width 16.4 % (11.5-17.5); White Blood Count 6.3 K/mm3 (4.8-10.8)
[2022-03-07 14:29] LABS: Alanine Aminotransferase 19 U/L (12-78); Albumin/Globulin Ratio 1.5 (1.1-1.8); Alkaline Phosphatase 73 U/L (38-126); Anion Gap 13.4 mEq/L (5-15); Aspartate Amino Transferase 31 U/L (17-59); Bilirubin,Total 0.2 mg/dl (0.2-1.3); Blood Urea Nitrogen 20 mg/dl (9-20); Calcium 9.9 mg/dl (8.4-10.2); Carbon Dioxide 28 mmol/L (22.0-30.0); Chloride 101 mmol/L (98-107); Chol/HDL Ratio 3.8 (1-3.5); Cholesterol 184 mg/dl (140-200); Estimated Glomerular Filt Rate 78 ml/min (>60); GFR (African American) 94 ML/MIN (>60); Globulin 2.7 g/dL (1.3-3.2); Glucose 156 mg/dl (74-100); HDL Cholesterol 49 mg/dl (40-60); Potassium 4.4 mmoL/L (3.5-5.1); Sodium 138 mmol/L (136-145); Total Protein,Serum 6.7 g/dl (6.3-8.2); Triglycerides 92 mg/dl (30-150); VLDL Cholesterol 18 mg/dL (0-40)
[2022-03-07 14:40] LABS: Direct LDL Cholesterol 94.49 mg/dL (100-129)
[2022-03-07 14:46] LABS: T4 (Thyroxine) 8.2 ug/dl (5.53-11.0)
[2022-03-07 14:47] LABS: 25-OH Vitamin D, Total 26.8 ng/mL (30-100)
[2022-03-07 14:58] LABS: Hemoglobin A1C 6.2 % (4.0-6.0)
[2022-03-07 15:00] LABS: Thyroid Stimulating Hormone 0.86 uIU/mL (0.465-4.68)
[2022-03-07 16:00] LABS: Microalbumin < 6.000 mg/L (0-16.7)
[2022-03-07 16:13] LABS: Amphetamine/Metha Screen,Urine Negative ng/ml (<1000); Barbiturates Screen,Urine Negative ng/ml (<200)
[2022-03-07 16:14] LABS: Benzodiazepines Screen,Urine Negative ng/ml (<200)
[2022-03-07 16:15] LABS: Cannabinoid Screen,Urine Positive ng/ml (<50); Cocaine Screen,Urine Negative ng/ml (<300)
[2022-03-07 16:16] LABS: Methadone Screen,Urine Negative ng/ml (<300)
[2022-03-07 16:18] LABS: Opiate Screen,Urine Negative ng/ml (<300); Phencyclidine Screen,Urine Negative ng/ml (<25)
[2022-03-10 14:36] LABS: C-Peptide 8.4 ng/mL (1.1-4.4)
== END ==
PROVIDERS: Visit Provider Nurse Practitioner Family
DX: E11.9 Type 2 diabetes mellitus without complications (principal); G89.29 Other chronic pain; K46.9 Unspecified abdominal hernia without obstruction or gangrene; E55.9 Vitamin D deficiency, unspecified
CPT/HCPCS: 80053; 80061; 80305; 82043; 82306; 83036; 84436; 84443; 84681; 85025

== ENCOUNTER → 2022-05-19 09:29 | Outpatient (CLI) | payer MEDICARE, MEDICAID, SELFPAY ==
[2022-05-19 09:51] LABS: Basophils # 0.1 K/mm3 (0-0.2); Eosinophils # 0.3 K/mm3 (0.0-0.4); Eosinophils % 4.4 % (0.1-12.0); Hematocrit 38.9 % (42.0-52.0); Lymphocytes # 1.7 K/mm3 (0.7-4.5); Lymphocytes % 23.3 % (10-50); Mean Corpuscular HGB Conc 30.8 g/dL (31.8-35.4); Mean Corpuscular Hemoglobin 28.2 pg (27.0-31.2); Mean Corpuscular Volume 91.8 fl (80-94); Monocytes # 0.4 K/mm3 (0.1-1.0); Monocytes % 5.7 % (1.7-9.3); Neutrophils # 4.7 K/mm3 (1.8-7.8); Neutrophils % 65.6 % (37.0-80.0); Platelet Count 387 K/mm3 (142-424); Red Blood Count 4.24 M/mm3 (4.60-6.20); Red Cell Distribution Width 14.9 % (11.5-17.5); White Blood Count 7.2 K/mm3 (4.8-10.8)
[2022-05-19 11:16] LABS: Alanine Aminotransferase 16 U/L (12-78); Albumin Level 4.1 g/dl (3.5-5.0); Albumin/Globulin Ratio 1.5 (1.1-1.8); Alkaline Phosphatase 70 U/L (38-126); Anion Gap 9.4 mEq/L (5-15); Aspartate Amino Transferase 25 U/L (17-59); Bilirubin,Total < 0.1 mg/dl (0.2-1.3); Blood Urea Nitrogen 15 mg/dl (9-20); Calcium 9.2 mg/dl (8.4-10.2); Carbon Dioxide 30 mmol/L (22.0-30.0); Chloride 104 mmol/L (98-107); Estimated Glomerular Filt Rate 78 ml/min (>60); GFR (African American) 94 ML/MIN (>60); Globulin 2.7 g/dL (1.3-3.2); Glucose 93 mg/dl (74-100); Potassium 4.4 mmoL/L (3.5-5.1); Sodium 139 mmol/L (136-145); Total Protein,Serum 6.8 g/dl (6.3-8.2)
== END ==
PROVIDERS: PCP Nurse Practitioner Family; Visit Provider Nurse Practitioner Family
DX: R06.09 Other forms of dyspnea (principal); R53.83 Other fatigue; K46.9 Unspecified abdominal hernia without obstruction or gangrene
CPT/HCPCS: 36415; 80053; 85025

== ENCOUNTER → 2023-03-06 13:38 | Outpatient (CLI) | payer MEDICARE, MEDICAID, SELFPAY ==
[2023-03-06 13:21] LABS: Basophils # 0.1 K/mm3 (0-0.2); Basophils % 0.9 % (0.1-2.0); Eosinophils # 0.4 K/mm3 (0.0-0.4); Eosinophils % 5.2 % (0.1-12.0); Hematocrit 39.7 % (42.0-52.0); Hemoglobin 12.4 g/dL (14.1-18.0); Lymphocytes # 2.2 K/mm3 (0.7-4.5); Lymphocytes % 28.8 % (10-50); Mean Corpuscular HGB Conc 31.2 g/dL (31.8-35.4); Mean Corpuscular Hemoglobin 26.5 pg (27.0-31.2); Mean Corpuscular Volume 85.1 fl (80-94); Monocytes # 0.5 K/mm3 (0.1-1.0); Neutrophils # 4.4 K/mm3 (1.8-7.8); Neutrophils % 58.3 % (37.0-80.0); Platelet Count 453 K/mm3 (142-424); Red Blood Count 4.66 M/mm3 (4.60-6.20); Red Cell Distribution Width 14.4 % (11.5-17.5); White Blood Count 7.6 K/mm3 (4.8-10.8)
[2023-03-06 13:25] LABS: Alanine Aminotransferase 25 U/L (12-78); Albumin Level 4.5 g/dl (3.5-5.0); Albumin/Globulin Ratio 1.7 (1.1-1.8); Alkaline Phosphatase 70 U/L (38-126); Anion Gap 15.3 mEq/L (5-15); Aspartate Amino Transferase 36 U/L (17-59); Bilirubin,Total 0.4 mg/dl (0.2-1.3); Blood Urea Nitrogen 21 mg/dl (9-20); Calcium 9.8 mg/dl (8.4-10.2); Carbon Dioxide 27 mmol/L (22.0-30.0); Chloride 101 mmol/L (98-107); Chol/HDL Ratio 5.4 (1-3.5); Cholesterol 264 mg/dl (140-200); Estimated Glomerular Filt Rate 63 ml/min (>60); GFR (African American) 76 ML/MIN (>60); Globulin 2.7 g/dL (1.3-3.2); Glucose 128 mg/dl (74-100); HDL Cholesterol 49 mg/dl (40-60); Potassium 4.3 mmoL/L (3.5-5.1); Sodium 139 mmol/L (136-145); Total Protein,Serum 7.2 g/dl (6.3-8.2); Triglycerides 126 mg/dl (30-150); VLDL Cholesterol 25 mg/dL (0-40)
[2023-03-06 13:37] LABS: Direct LDL Cholesterol 153.98 mg/dL (100-129)
[2023-03-06 13:42] LABS: 25-OH Vitamin D, Total 25.6 ng/mL (30-100)
[2023-03-06 13:47] LABS: Hemoglobin A1C 6.2 % (4.0-6.0)
[2023-03-06 13:56] LABS: Prostate Specific Ag Screen 0.3 ng/ml (0.0-4.0); Thyroid Stimulating Hormone 1.23 uIU/mL (0.465-4.68)
== END ==
PROVIDERS: PCP Nurse Practitioner Family; Visit Provider Nurse Practitioner Family
DX: E66.3 Overweight (principal); Z12.5 Encounter for screening for malignant neoplasm of prostate; E11.9 Type 2 diabetes mellitus without complications; R06.09 Other forms of dyspnea; E55.9 Vitamin D deficiency, unspecified
CPT/HCPCS: 80053; 80061; 82306; 83036; 84443; 85025; G0103

== ENCOUNTER 2023-11-13 12:16 | Outpatient (CLI) | payer MEDICARE, MEDICAID, SELFPAY ==
[2023-11-13 12:25] LABS: Basophils % 0.5 % (0.1-2.0); Eosinophils # 0.3 K/mm3 (0.0-0.4); Eosinophils % 3.9 % (0.1-12.0); Hematocrit 39.5 % (42.0-52.0); Lymphocytes # 1.8 K/mm3 (0.7-4.5); Lymphocytes % 22.5 % (10-50); Mean Corpuscular HGB Conc 32.9 g/dL (31.8-35.4); Mean Corpuscular Hemoglobin 28.9 pg (27.0-31.2); Mean Corpuscular Volume 88.1 fl (80-94); Mean Platelet Volume 10.8 fl (7.4-10.4); Monocytes # 0.4 K/mm3 (0.1-1.0); Monocytes % 5.1 % (1.7-9.3); Neutrophils # 5.5 K/mm3 (1.8-7.8); Platelet Count 374 K/mm3 (142-424); Red Blood Count 4.49 M/mm3 (4.60-6.20); Red Cell Distribution Width 14.1 % (11.5-17.5); White Blood Count 8.1 K/mm3 (4.8-10.8)
[2023-11-13 12:38] LABS: Alanine Aminotransferase 32 U/L (12-78); Albumin Level 4.3 g/dl (3.5-5.0); Albumin/Globulin Ratio 1.6 (1.1-1.8); Alkaline Phosphatase 65 U/L (38-126); Anion Gap 12.4 mEq/L (5-15); Aspartate Amino Transferase 37 U/L (17-59); Bilirubin,Total 0.4 mg/dl (0.2-1.3); Blood Urea Nitrogen 18 mg/dl (9-20); Calcium 9.6 mg/dl (8.4-10.2); Carbon Dioxide 27 mmol/L (22.0-30.0); Chloride 104 mmol/L (98-107); Chol/HDL Ratio 5.3 (1-3.5); Cholesterol 261 mg/dl (140-200); Estimated Glomerular Filt Rate 77 ml/min (>60); GFR (African American) 93 ML/MIN (>60); Globulin 2.7 g/dL (1.3-3.2); Glucose 135 mg/dl (74-100); HDL Cholesterol 49 mg/dl (40-60); Potassium 4.4 mmoL/L (3.5-5.1); Sodium 139 mmol/L (136-145); Triglycerides 160 mg/dl (30-150); VLDL Cholesterol 32 mg/dL (0-40)
[2023-11-13 12:49] LABS: Direct LDL Cholesterol 148.42 mg/dL (100-129)
[2023-11-13 12:55] LABS: 25-OH Vitamin D, Total 26.3 ng/mL (30-100)
[2023-11-13 13:10] LABS: Thyroid Stimulating Hormone 1.72 uIU/mL (0.465-4.68)
[2023-11-13 14:18] LABS: Hemoglobin A1C 6.7 % (4.0-6.0)
== END 2023-11-13 23:59 ==
PROVIDERS: PCP Family Medicine; Visit Provider Family Medicine
DX: R53.83 Other fatigue (principal); E78.5 Hyperlipidemia, unspecified; E55.9 Vitamin D deficiency, unspecified; E11.9 Type 2 diabetes mellitus without complications; Z68.41 Body mass index [BMI] 40.0-44.9, adult
CPT/HCPCS: 80053; 80061; 82306; 83036; 84443; 85025

== ENCOUNTER 2024-06-14 15:38 | Outpatient (CLI) | payer MEDICARE, MEDICAID, SELFPAY ==
[2024-06-14 16:05] LABS: Basophils # 0.1 K/mm3 (0-0.2); Basophils % 0.7 % (0.1-2.0); Eosinophils # 0.4 K/mm3 (0.0-0.4); Hematocrit 38.8 % (42.0-52.0); Hemoglobin 12.2 g/dL (14.1-18.0); Lymphocytes # 2.8 K/mm3 (0.7-4.5); Lymphocytes % 33.6 % (10-50); Mean Corpuscular HGB Conc 31.4 g/dL (31.8-35.4); Mean Corpuscular Hemoglobin 28.9 pg (27.0-31.2); Mean Corpuscular Volume 92.1 fl (80-94); Monocytes # 0.5 K/mm3 (0.1-1.0); Monocytes % 5.9 % (1.7-9.3); Neutrophils # 4.6 K/mm3 (1.8-7.8); Neutrophils % 54.7 % (37.0-80.0); Platelet Count 361 K/mm3 (142-424); Red Blood Count 4.21 M/mm3 (4.60-6.20); Red Cell Distribution Width 14.2 % (11.5-17.5); White Blood Count 8.4 K/mm3 (4.8-10.8)
== END 2024-06-14 23:59 | disposition home or self-care (01) ==
LOC: LAB 15:39
PROVIDERS: PCP Nurse Practitioner Family; Visit Provider Nurse Practitioner Family
DX: D64.9 Anemia, unspecified (principal)
CPT/HCPCS: 36415; 85025

== ENCOUNTER 2024-08-17 08:32 | Outpatient (CLI) | payer MEDICARE, MEDICAID, SELFPAY ==
--- NOTE | 2024-08-17 08:41 | US_ITS ---
FINAL REPORT CLINICAL HISTORY: ABD PAIN COMPARISON: None FINDINGS: Sonographic images of the right upper quadrant were obtained. Exam is suboptimal secondary to patient body habitus. The pancreas is obscured. There is fatty infiltration of the liver. The gallbladder appears normal without evidence of gallstones or sludge. There is no evidence of gallbladder wall thickening.There is no evidence of biliary ductal dilatation.The common duct measures 4mm. Limited images of the right kidney are unremarkable. IMPRESSION: Fatty liver. Reviewed, Interpreted and Dictated by Finesse Fernandez MD Transcribed by Karla Wan Authenticated and [facility]
== END 2024-08-17 23:59 | disposition home or self-care (01) ==
LOC: RAD 08:35
PROVIDERS: PCP Nurse Practitioner Family; Visit Provider Nurse Practitioner Family
DX: R10.9 Unspecified abdominal pain (principal)
CPT/HCPCS: 76705

== ENCOUNTER 2024-10-19 10:54 | Outpatient (CLI) | payer MEDICARE, MEDICAID, SELFPAY ==
[2024-10-19 11:19] LABS: Basophils # 0.1 K/mm3 (0-0.2); Basophils % 0.6 % (0.1-2.0); Eosinophils # 0.4 K/mm3 (0.0-0.4); Hematocrit 38.8 % (42.0-52.0); Lymphocytes # 2.1 K/mm3 (0.7-4.5); Lymphocytes % 24.3 % (10-50); Mean Corpuscular HGB Conc 30.9 g/dL (31.8-35.4); Mean Corpuscular Hemoglobin 25.4 pg (27.0-31.2); Mean Platelet Volume 11.5 fl (7.4-10.4); Monocytes # 0.5 K/mm3 (0.1-1.0); Neutrophils # 5.6 K/mm3 (1.8-7.8); Neutrophils % 64.8 % (37.0-80.0); Platelet Count 454 K/mm3 (142-424); Red Blood Count 4.73 M/mm3 (4.60-6.20); Red Cell Distribution Width 15.3 % (11.5-17.5); White Blood Count 8.7 K/mm3 (4.8-10.8)
[2024-10-19 12:33] LABS: Ferritin 7.36 ng/ml (17.9-464)
[2024-10-19 13:44] LABS: Iron 67 ug/dL (49-181)
[2024-10-19 13:53] LABS: Total Iron Binding Capacity 531 ug/dL (261-462)
== END 2024-10-19 23:59 | disposition home or self-care (01) ==
LOC: LAB 10:55
PROVIDERS: PCP Nurse Practitioner Family; Visit Provider Internal Medicine Medical Oncology
DX: D50.0 Iron deficiency anemia secondary to blood loss (chronic) (principal)
CPT/HCPCS: 36415; 82728; 83540; 83550; 85025

== ENCOUNTER 2024-12-14 11:32 | Outpatient (CLI) | payer MEDICARE, MEDICAID, SELFPAY ==
[2024-12-14 13:54] LABS: Basophils # 0.1 K/mm3 (0-0.2); Basophils % 0.9 % (0.1-2.0); Eosinophils # 0.3 K/mm3 (0.0-0.4); Eosinophils % 4.4 % (0.1-12.0); Hematocrit 41.8 % (42.0-52.0); Hemoglobin 13.3 g/dL (14.1-18.0); Lymphocytes % 25.9 % (10-50); Mean Corpuscular HGB Conc 31.8 g/dL (31.8-35.4); Mean Corpuscular Hemoglobin 27.5 pg (27.0-31.2); Mean Corpuscular Volume 86.5 fl (80-94); Mean Platelet Volume 12.6 fl (7.4-10.4); Monocytes # 0.5 K/mm3 (0.1-1.0); Monocytes % 6.9 % (1.7-9.3); Neutrophils # 4.7 K/mm3 (1.8-7.8); Neutrophils % 61.6 % (37.0-80.0); Platelet Count 406 K/mm3 (142-424); Red Blood Count 4.83 M/mm3 (4.60-6.20); Red Cell Distribution Width 17.9 % (11.5-17.5); White Blood Count 7.7 K/mm3 (4.8-10.8)
[2024-12-14 14:01] LABS: Iron 123 ug/dL (49-181)
[2024-12-14 14:17] LABS: Total Iron Binding Capacity 497 ug/dL (261-462)
[2024-12-14 14:37] LABS: Ferritin 18.5 ng/ml (17.9-464)
== END 2024-12-14 23:59 | disposition home or self-care (01) ==
LOC: LAB 11:32
PROVIDERS: PCP Nurse Practitioner Family; Visit Provider Internal Medicine Medical Oncology
DX: D50.0 Iron deficiency anemia secondary to blood loss (chronic) (principal)
CPT/HCPCS: 36415; 82728; 83540; 83550; 85025

== ENCOUNTER 2025-05-15 09:12 | Outpatient (CLI) | payer MEDICARE, MEDICAID, SELFPAY ==
--- OUTSIDE RECORDS SUMMARY | 2025-05-15 09:14 | XMS_ITS | Encounter Summary ---
Author Organization [employer] ([place], [place], [place], [place]) Address [address] [place] [address] Care Team Providers Care Bumper Operator Name Role Phone Unavailable Primary Care Provider Unavailabl e Encounter Details Date Type Department Care Team (Late st Contact Info) Description 01/06/[address] [facility] [place] Family Medicine [facility] [place] [address] ProviderMiah MD [address], [place] [id number] Social History Tobacco Use Types Packs/Day Years Used Date Smoking Tobacco: Never Assessed Sex and Gender Information Value Date Recorded Sex Assigned at Not on file Legal Sex Male 7:06 PM CDT Gender Identity Not on file Sexual Orientation Not on file documented as of this encounter Miscellaneous Notes * Cerner Conversion Note - Historical ProviderMD - 01/06/2019 12:33 PM CDT Pre Procedure Adult Entered On: 01/06/2019 12:40 EDT Performed On: 01/06/2019 12:33 EDT by Ree Blanchard RN Height and Weight, Clinical Dosing Height Source : Stated Height Entry Format : [place] Height, Feet : 6 ft(Converted to: 183 cm, 72 Inch) Height, Inches : 1 Inch(Converted to: 0 ft 1 Inch, 2.54 cm) Clinical Height : 185.42 cm Weight Source : Standing scale Weight Entry Format : [place] Clinical Dosing Weight : 144.36 kg Weight, Pounds : 317.6 lb Body Surface Area (BSA) : 2.62 m2 Body Mass Index : 42 kg/m2 (>HHI) Mobile Body Weight : 79 kg Ree Blanchard RN - 01/06/2019 12:33 EDT Health Histories Smoking Status : Former smoker, quit more than 30 days ago Smokeless Tobacco Status : Never Ree Blanchard RN - 01/06/2019 12:33 EDT Social History (As Of: 01/06/2019 12:40:13 EDT) Tobacco: Former smoker, quit more than 30 days ago Smoking Status. Years of Use: 16. Packs/Tins Daily: 1. Last Used: Quit 1986. (Last Updated: 01/06/2019 12:29:20 EDT by Ree Blanchard, RN) Alcohol: Alcohol Use History No. (Last Updated: 01/06/2019 12:29:30 EDT by Ree Blanchard, RN) Substance Abuse: Drug Use Hx: Yes. Marijuana/Hashish Recreational Drug Type. Years of Use: whenever I can get it for the past 40 years. Drug Last Use: 2 days ago. (Last Updated: 01/06/2019 12:30:09 EDT by Ree Blanchard, RN) Nutrition/Health: Caffeine intake amount: coffee x 2-3 cups/day. (Last Updated: 01/06/2019 12:30:24 EDT by Ree Blanchard, RN) Infectious Disease History Infectious Disease History : Chicken pox/Shingles, Influenza, Mumps Fever/Chills Last 48 Hours : No Travel To Regions with Travel Advisories : No Travel Outside [place] Within Last 30 Days : No Contact With Traveler to Advisory Region : No Tuberculosis Symptoms : None Ree Blanchard RN - 01/06/2019 12:33 EDT Anesthesia/Transfusion History Family History of Anesthesia Reaction : Prior transfusion without reaction Transfusion History : Prior anesthesia without reaction Family History of Anesthesia Reaction : None Ree Blanchard RN - 01/06/2019 12:33 EDT Functional Assessment Living Situation : Home Patient Lives With : Adult Child/Children, Spouse Current Home Treatments : None Ree Blanchard RN - 01/06/2019 12:33 EDT Psychosocial History Currently in Unsafe Situation : No Tried to Harm Yourself in the Past? : No Thoughts of Harming/Killing Yourself : No Ree Blanchard RN - 01/06/2019 12:33 EDT Advance Directive Patient has Advance Directive *Q : No, patient refuses Advance Directive information Ree Blanchard RN - 01/06/2019 12:33 EDT Teaching/Learning Assessment Barriers To Learning : None evident Individuals Taught : Patient Readiness to Learn : Cooperative Baseline Knowledge of Topic : Good Readiness to Learn : Explanation Learning Style Preferences Patient : None Learning Style Preferences Family : None Ree Blanchard RN - 01/06/2019 12:33 EDT General Info Want Family/Rep/Phys Notified of Admit : No Emergency Contact #1 : Eloy Meier Emergency Contact #1 Emergency Contact #1 Relationship : spouse Emergency Contact #2 : na Emergency Contact #2 Phone Number : na Emergency Contact #2 Relationship : na Primary Language : Zimbabwean Communication Barrier : None Ree Blanchard RN - 01/06/2019 12:33 EDT Sleep Apnea Risk Assmt BiPAP/CPAP Ordered for Home Use : No Hx of Obstructive Sleep Apnea Diagnosis : Yes Age over 50 Years Old : Yes Gender Male : Yes Ree Blanchard RN - 01/06/2019 12:33 EDT Darnell Scale Darnell Sensory Perception : No impairment Darnell Moisture : Rarely moist Darnell Activity : Walks frequently Darnell Mobility : No limitation Darnell Nutrition : Adequate Darnell Friction and Shear : No apparent problem Darnell Score : 22 Ree Blanchard RN - 01/06/2019 12:33 EDT Pain Assessment Pain Assessment : Initial assessment Pain Scale Goal : 9 Pain Scl Goal Comment : baseline pain It stays at 8-9 generalized joint pain Pain Scale Used : 0-10 Scale Location : Generalized Ree Blanchard RN - 01/06/2019 12:33 EDT Fall Risk Scales ABCs Fall Injury Risk Identification : None BOONE Hx Falls Immediate/Within 3 Months : No Boone Secondary Diagnosis : Yes BOONE Use of Ambulatory Aid : None BOONE IV Therapy or IV Access : Yes Boone Gait/Transferring : Normal, bedrest, immobile Boone Mental Status : Oriented to own ability Boone Fall Risk Score : 35 BOONE Fall Scale Risk Level : 25-45 Medium Risk Ross Fall Interventions : Adequate lighting, Bed in low position, Call device within reach, Personal items within reach, Reinforced to call for assistance before getting out of bed, Room free of clutter/spills, Upper side-rails up, Wheels locked, Wires/Cords secured Ree Blanchard RN - 01/06/2019 12:33 EDT Valuables and Belongings Valuables and Belongings : Clothing, Personal devices Clothing : Common streetwear Clothing Disposition : Bedside Personal Device Disposition : Bedside Personal Devices : Dentures, upper, Dentures, lower, Glasses Ree Blanchard RN - 01/06/2019 12:33 EDT Pain Scale Intensity : 9 Ree Blanchard RN - 01/06/2019 12:33 EDT Image 4 - Images currently included in the form version of this document have not been included in the text rendition version of the form. documented in this encounter Plan of Treatment Not on file documented as of this encounter Visit Diagnoses Not on filedocumented in this encounter
--- OUTSIDE RECORDS SUMMARY | 2025-05-15 09:14 | XMS_ITS | Clinical Summary ---
Author Organization [employer] ([place], [place], [place], [place]) Address [address] [place] [address] Care Team Providers Care Brainer Name Role Phone Unavailable Primary Care Provider Unavailabl e Social History Tobacco Use Types Packs/Day Years Used Date Smoking Tobacco: Never Assessed Sex and Gender Information Value Date Recorded Sex Assigned at Not on file Legal Sex Male 7:06 PM CDT Gender Identity Not on file Sexual Orientation Not on file Plan of Treatment Not on file
--- OUTSIDE RECORDS SUMMARY | 2025-05-15 09:15 | XMS_ITS | Encounter Summary ---
Author Organization [employer] ([place], [place], [place], [place]) Address [address] [place] [address] Care Team Providers Care Bill Sorter Name Role Phone Unavailable Primary Care Provider Unavailabl e Encounter Details Date Type Department Care Team (Late st Contact Info) Description 01/06/2019 Transcribed Document [facility] [place] [place] Family Medicine [facility] [place] [address] ProviderMiah MD [address], [place] [id number] Social History Tobacco Use Types Packs/Day Years Used Date Smoking Tobacco: Never Assessed Sex and Gender Information Value Date Recorded Sex Assigned at Not on file Legal Sex Male 7:06 PM CDT Gender Identity Not on file Sexual Orientation Not on file documented as of this encounter Miscellaneous Notes * Cerner Conversion Note - Miah ProviderMD - 01/06/2019 1:53 PM CDT Patient Education Materials Follows: Hemorrhoids Introduction Hemorrhoids are swollen veins in and around the rectum or anus. Hemorrhoids can cause pain, itching, or bleeding. Most of the time, they do not cause serious problems. They usually get better with diet changes, lifestyle changes, and other home treatments. Follow these instructions at home: Eating and drinking??? Eat foods that have fiber, such as whole grains, beans, nuts, fruits, and vegetables. Ask your doctor about taking products that have added fiber (fiber?supplements). ??? Drink enough fluid to keep your pee (urine) clear or pale yellow. For Pain and Swelling??? Take a warm-water bath (sitz bath) for 20 minutes to ease pain. Do this 3?4 times a day. ??? If directed, put ice on the painful area. It may be helpful to use ice between your warm baths.? Put ice in a plastic bag. ? Place a towel between your skin and the bag. ? Leave the ice on for 20 minutes, 2?3 times a day. General instructions??? Take fpwj-lfs-pitqiox and prescription medicines only as told by your doctor.? Medicated creams and medicines that are inserted into the anus (suppositories) may be used or applied as told. ??? Exercise often. ??? Go to the bathroom when you have the urge to poop (to have a bowel movement). Do not wait. ??? Avoid pushing too hard (straining) when you poop. ??? Keep the butt area dry and clean. Use wet toilet paper or moist paper towels. ??? Do notsit on the toilet for a long time. Contact a doctor if: ??? You have any of these:? Pain and swelling that do not get better with treatment or medicine. ? Bleeding that will not stop. ? Trouble pooping or you cannot poop. ? Pain or swelling outside the area of the hemorrhoids. This information is not intended to replace advice given to you by your health care provider. Make sure you discuss any questions you have with your health care provider. Document Released: 06/23/2009 Document Revised: 02/19/2017 Document Reviewed: 05/28/2016 ? 2017 Elsevier Diverticulosis Diverticulosis is the condition that develops when small pouches (diverticula) form in the wall of your colon. Your colon, or large intestine, is where water is absorbed and stool is formed. The pouches form when the inside layer of your colon pushes through weak spots in the outer layers of your colon. CAUSES No one knows exactly what causes diverticulosis. RISK FACTORS ??? Being older than 50. Your risk for this condition increases with age. Diverticulosis is rare in people younger than 40 years. By age 80, almost everyone has it. ??? Eating a low-fiber diet. ??? Being frequently constipated. ??? Being overweight. ??? Not getting enough exercise. ??? Smoking. ??? Taking rvsu-klm-ezoxxfi pain medicines, like aspirin and ibuprofen. SYMPTOMS Most people with diverticulosis do not have symptoms. DIAGNOSIS Because diverticulosis often has no symptoms, health care providers often discover the condition during an exam for other colon problems. In many cases, a health care provider will diagnose diverticulosis while using a flexible scope to examine the colon (colonoscopy). TREATMENT If you have never developed an infection related to diverticulosis, you may not need treatment. If you have had an infection before, treatment may include: ??? Eating more fruits, vegetables, and grains. ??? Taking a fiber supplement. ??? Taking a live bacteria supplement (probiotic). ??? Taking medicine to relax your colon. HOME CARE INSTRUCTIONS ??? Drink at least 6?8 glasses of water each day to prevent constipation. ??? Try not to strain when you have a bowel movement. ??? Keep all follow-up appointments. If you have had an infection before:? Increase the fiber in your diet as directed by your health care provider or dietitian. ??? Take a dietary fiber supplement if your health care provider approves. ??? Only take medicines as directed by your health care provider. SEEK MEDICAL CARE IF: ??? You have abdominal pain. ??? You have bloating. ??? You have cramps. ??? You have not gone to the bathroom in 3 days. SEEK IMMEDIATE MEDICAL CARE IF: ??? Your pain gets worse. ??? Your?bloating becomes very bad. ??? You have a fever or chills, and your symptoms suddenly get worse. ??? You begin vomiting. ??? You have bowel movements that are bloody or black. MAKE SURE YOU: ??? Understand these instructions. ??? Will watch your condition. ??? Will get help right away if you are not doing well or get worse. This information is not intended to replace advice given to you by your health care provider. Make sure you discuss any questions you have with your health care provider. Document Released: 06/11/2005 Document Revised: 09/19/2014 Document Reviewed: 08/09/2014 ElseNote Interactive Patient Education ? 2017 [employer] Colon Polyps Introduction Polyps are tissue growths inside the body. Polyps can grow in many places, including the large intestine (colon). A polyp may be a round bump or a mushroom-shaped growth. You could have one polyp or several. Most colon polyps are noncancerous (benign). However, some colon polyps can become cancerous over time. What are the causes? The exact cause of colon polyps is not known. What increases the risk? This condition is more likely to develop in people who:??? Have a family history of colon cancer or colon polyps. ??? Are older than 50 or older than 45 if they are . ??? Have inflammatory bowel disease, such as ulcerative colitis or Crohn disease. ??? Are overweight. ??? Smoke cigarettes. ??? Do not get enough exercise. ??? Drink too much alcohol. ??? Eat a diet that is:? High in fat and red meat. ? Low in fiber. ??? Had childhood cancer that was treated with abdominal radiation. What are the signs or symptoms? Most polyps do not cause symptoms. If you have symptoms, they may include: ??? Blood coming from your rectum when having a bowel movement. ??? Blood in your stool.?The stool may look dark red or black. ??? A change in bowel habits, such as constipation or diarrhea. How is this diagnosed? This condition is diagnosed with a colonoscopy. This is a procedure that uses a lighted, flexible scope to look at the inside of your colon.How is this treated? Treatment for this condition involves removing any polyps that are found. Those polyps will then be tested for cancer. If cancer is found, your health care provider will talk to you about options for colon cancer treatment. Follow these instructions at home: Diet??? Eat plenty of fiber, such as fruits, vegetables, and whole grains. ??? Eat foods that are high in calcium and vitamin D, such as milk, cheese, yogurt, eggs, liver, fish, and broccoli. ??? Limit foods high in fat, red meats, and processed meats, such as hot dogs, sausage, jeong, and lunch meats. ??? Maintain a healthy weight, or lose weight if recommended by your health care provider. General instructions??? Do notsmoke cigarettes. ??? Do notdrink alcohol excessively. ??? Keep all follow-up visits as told by your health care provider. This is important. This includes keeping regularly scheduled colonoscopies. Talk to your health care provider about when you need a colonoscopy. ??? Exercise every day or as told by your health care provider. Contact a health care provider if: ??? You have new or worsening bleeding during a bowel movement. ??? You have new or increased blood in your stool. ??? You have a change in bowel habits. ??? You unexpectedly lose weight. This information is not intended to replace advice given to you by your health care provider. Make sure you discuss any questions you have with your health care provider. Document Released: 06/10/2005 Document Revised: 02/19/2017 Document Reviewed: 08/04/2016 ? 2017 Elsevier Colonoscopy, Care After These instructions give you information on caring for yourself after your procedure. Your doctor may also give you more specific instructions. Call your doctor if you have any problems or questions after your procedure. HOME CARE ? Do not drive for 24 hours. ? Do not sign important papers or use machinery for 24 hours. ? You may shower. ? You may go back to your usual activities, but go slower for the first 24 hours. ? Take rest breaks often during the first 24 hours. ? Walk around or use warm packs on your belly (abdomen) if you have belly cramping or gas. ? Drink enough fluids to keep your pee (urine) clear or pale yellow. ? Resume your normal diet. Avoid heavy or fried foods. ? Avoid drinking alcohol for 24 hours or as told by your doctor. ? Only take medicines as told by your doctor. If a tissue sample (biopsy) was taken during the procedure: ? Do not take aspirin or blood thinners for 7 days, or as told by your doctor. ? Do not drink alcohol for 7 days, or as told by your doctor. ? Eat soft foods for the first 24 hours. GET HELP IF: You still have a small amount of blood in your poop (stool) 2?3 days after the procedure. GET HELP RIGHT AWAY IF: ? You have more than a small amount of blood in your poop. ? You see clumps of tissue (blood clots) in your poop. ? Your belly is puffy (swollen). ? You feel sick to your stomach (nauseous) or throw up (vomit). ? You have a fever. ? You have belly pain that gets worse and medicine does not help. MAKE SURE YOU: ? Understand these instructions. ? Will watch your condition. ? Will get help right away if you are not doing well or get worse. Document Released: 10/17/2011 Document Revised: 09/19/2014 Document Reviewed: 05/22/2014 ExitCare? Patient Information ?2015 [employer]. This information is not intended to replace advice given to you by your health care provider. Make sure you discuss any questions you have with your health care provider. documented in this encounter Plan of Treatment Not on file documented as of this encounter Visit Diagnoses Not on filedocumented in this encounter
--- OUTSIDE RECORDS SUMMARY | 2025-05-15 09:15 | XMS_ITS | Encounter Summary ---
Author Organization [employer] ([place], [place], [place], [place]) Address [address] [place] [address] Care Team Providers Care Sales And Operations Trainee Name Role Phone Unavailable Primary Care Provider Unavailabl e Encounter Details Date Type Department Care Team (Late st Contact Info) Description 12/25/2018 Transcribed Document [facility] [place] [facility] [place] [address] ProviderMiah MD [address] [place] [address] Social History Tobacco Use Types Packs/Day Years Used Date Smoking Tobacco: Never Assessed Sex and Gender Information Value Date Recorded Sex Assigned at Not on file Legal Sex Male 7:06 PM CDT Gender Identity Not on file Sexual Orientation Not on file documented as of this encounter Miscellaneous Notes * Cerner Conversion Note - Historical ProviderMD - 12/25/2018 5:18 PM CDT Admission History, Adult Entered On: 12/25/2018 18:57 EDT Performed On: 12/25/2018 17:18 EDT by Sierra Hamilton Rn Advance Directive Patient has Advance Directive *Q : No, patient refuses Advance Directive information Sierra Hamilton Rn - 12/25/2018 18:38 EDT Anesthesia/Transfusion History Family History of Anesthesia Reaction : Prior transfusion without reaction Blood Transfusion Acceptable to Patient : Yes Transfusion History : Prior anesthesia without reaction Family History of Anesthesia Reaction : None Sierra Hamilton Rn - 12/25/2018 18:38 EDT Functional Assessment Living Situation : Home Current Home Treatments : None Sierra Hamilton Rn - 12/25/2018 18:38 EDT General Info Arrived From : Other: [facility] Mode of Arrival on Unit : Stretcher Want Family/Rep/Phys Notified of Admit : No Emergency Contact #1 : Sarita Baker Emergency Contact #1 Phone Number : [phone] Emergency Contact #1 Relationship : mother Emergency Contact #2 : juni granger Emergency Contact #2 Phone Number : [phone] Emergency Contact #2 Relationship : Chief Complaint : SOA Information Obtained From : Patient Primary Language : Pashto Communication Barrier : None Sierra Hamilton Rn - 12/25/2018 18:38 EDT Fall Risk Scales ABCs Fall Injury Risk Identification : None Injury Moderate to High Risk Interventions : Bed alarm on BOONE Hx Falls Immediate/Within 3 Months : No Boone Secondary Diagnosis : Yes BOONE Use of Ambulatory Aid : Bed rest/Nurse assist BOONE IV Therapy or IV Access : Yes Boone Gait/Transferring : Normal, bedrest, immobile Boone Mental Status : Oriented to own ability Boone Fall Risk Score : 35 BOONE Fall Scale Risk Level : 25-45 Medium Risk [place] Fall Interventions : Adequate lighting, Assistive devices within reach, Bed in low position, Call device within reach, Fall prevention handout/education per facility policy, Frequent orientation to call device, Frequent orientation to surroundings, Hourly comfort/safety rounds, Non-slip footwear, Personal items within reach, Reinforced to call for assistance before getting out of bed, Room free of clutter/spills, Upper side-rails up, Wheels locked, Wires/Cords secured Fall Moderate to High Risk Interventions : Bed alarm on Barriers to Learning : None evident Individuals Taught : Patient Readiness to Learn : Cooperative Highest Level of Education : High school Fall Risk Scale Calc Temp : 0 Sierra Hamilton Rn - 12/25/2018 18:38 EDT Health Histories Smoking Status : Former smoker, quit more than 30 days ago Smokeless Tobacco Status : Former smokeless tobacco user, quit more than 30 days ago Sierra Hamilton Rn - 12/25/2018 18:38 EDT Social History (As Of: 12/25/2018 18:57:23 EDT) Height and Weight, Clinical Dosing Height Source : Chart Height Entry Format : [place] Height, Feet : 6 ft(Converted to: 183 cm, 72 Inch) Height, Inches : 1 Inch(Converted to: 0 ft 1 Inch, 2.54 cm) Clinical Height : 185.42 cm Weight Source : Bed scale Weight Entry Format : [place] Clinical Dosing Weight : 146.36 kg Weight, Pounds : 322 lb Body Surface Area (BSA) : 2.64 m2 Body Mass Index : 42.6 kg/m2 (>HHI) [place] Body Weight : 79 kg Sierra Hamilton Rn - 12/25/2018 18:38 EDT Infectious Disease History Infectious Disease History : Chicken pox/Shingles, Influenza, Measles, Rubella Fever/Chills Last 48 Hours : No Travel To Regions with Travel Advisories : No Travel Outside [place] Within Last 30 Days : No Contact With Traveler to Advisory Region : No Tuberculosis Symptoms : None Sierra Hamilton Rn - 12/25/2018 18:38 EDT Influenza Vaccine Asmt, Adult Previous Vaccines from Immunization Schedule : No qualifying data available. Influenza Immunization, Current Season : Yes Sierra Hamilton Rn - 12/25/2018 18:38 EDT Pneumococcal Vaccine Previous Vaccines from Immunization Schedule : No qualifying data available. Pneumonia Immunization Received : No Pneumococcal Risk Assessment < Age 65 : None Sierra Hamilton Rn - 12/25/2018 18:38 EDT Nutrition History Eating Poorly Due to Decreased Appetite : No Unplanned Weight Loss in Past 3-6 Months : No Malnutrition Screening Tool Total(mal) : 0 Malnutrition Screening Tool Risk Level : Patient not at risk Sierra Hamilton Rn - 12/25/2018 18:38 EDT Psychosocial History Currently in Unsafe Situation : No Tried to Harm Yourself in the Past? : No Thoughts of Harming/Killing Yourself : No Sierra Hamilton Rn - 12/25/2018 18:38 EDT Sleep Apnea Risk Assmt BiPAP/CPAP Ordered for Home Use : No Hx of Obstructive Sleep Apnea Diagnosis : Yes Age over 50 Years Old : Yes Gender Male : Yes Sierra Hamilton Rn - 12/25/2018 18:38 EDT Valuables and Belongings Valuables and Belongings : Clothing Clothing : Common streetwear Clothing Disposition : Bedside Sierra Hamilton Rn - 12/25/2018 18:38 EDT documented in this encounter Plan of Treatment Not on file documented as of this encounter Visit Diagnoses Not on filedocumented in this encounter
--- OUTSIDE RECORDS SUMMARY | 2025-05-15 09:15 | XMS_ITS | Encounter Summary ---
Author Organization [employer] ([place], [place], [place], [place]) Address [address] [place] [address] Care Team Providers Care Face Burler Name Role Phone Unavailable Primary Care Provider Unavailabl e Encounter Details Date Type Department Care Team (Late st Contact Info) Description 01/06/2019 Transcribed Document [facility] [place] [address] ProviderMiah MD [address] [place] [address] Social History Tobacco Use Types Packs/Day Years Used Date Smoking Tobacco: Never Assessed Sex and Gender Information Value Date Recorded Sex Assigned at Not on file Legal Sex Male 7:06 PM CDT Gender Identity Not on file Sexual Orientation Not on file documented as of this encounter Miscellaneous Notes * Cerner Conversion Note - Miah ProviderMD - 01/06/2019 2:16 PM CDT [place] [id number] EDMAR BAKER :1965 Visit Time:01/06/2019 What to do next Your Diagnosis Personal history of colonic polyps, Personal history of colonic polyps Instructions From Your Care Team Diet after Discharge: Resume usual diet as tolerated, _, _ Fluid Restriction after Discharge: _ Activity after Discharge: _, Rest and relax today, _ Lifting Restrictions: _ Weight Bearing: _ Bedrest: _ Driving after Discharge: Do not drive for 24 hours May Return to Work/School: am Showering/Bathing: May shower, _ Notify Provider of: Wound/Incision Care after Discharge: _, _ Medical Equipment for Home Use: Home Health Services: Community Services: Follow-Up Appointments Follow Up with KELSEA CHAKRABORTY MD-PRGlo When Within As needed Comments followup with lab results in 1 toya tate gi report you will receive a call from [facility] (colorectal surgeon) regarding appt. Where: [address] [place] [address]- Medications What How Much When Instructions Next Dose Unchanged amLODIPine (amLODIPine 5 mg oral tablet) Oral Every Day Unchanged ascorbic acid (Vitamin C 500 mg oral tablet) 1 Tablet(s) Oral Every Day Unchanged atorvastatin (atorvastatin 20 mg oral tablet) Oral Every Day Unchanged bisoprolol (bisoprolol 5 mg oral tablet) Oral Every Day Unchanged docusate (Colace 100 mg oral capsule) 1 Capsule(s) Oral Two Times A Day as needed for as needed for constipation Unchanged escitalopram (escitalopram 20 mg oral tablet) Oral Every Day Unchanged fenofibrate (fenofibrate 145 mg oral tablet) Oral Every Day Unchanged ferrous sulfate (ferrous sulfate 325 mg (65 mg elemental iron) oral delayed release tablet) 1 Tablet(s) Oral Two Times A Day Unchanged gabapentin 800 Milligram(s) Oral Three Times A Day Unchanged hydroCHLOROthiazide (hydroCHLOROthiazide 25 mg oral tablet) Oral Every Day Unchanged losartan (losartan 100 mg oral tablet) Oral Every Day Unchanged pantoprazole (pantoprazole 40 mg oral delayed release tablet) 1 Tablet(s) Oral Two Times A Day Unchanged polyethylene glycol 3350 (MiraLax oral powder for reconstitution) 17 Gram(s) Oral Every Day Duration: 14 Day(s) Unchanged traMADol (traMADol 50 mg oral tablet) Oral Every 4 Hours Take your medications faithfully. Do NOT skip medication. Do NOT stop taking medications without the direction of a physician. Carry a list of your medications with you at all times, and take this medication list with you to your first follow up visit. Report any side effects. Avoid herbal remedies unless discussed with your physician. As part of your treatment plan, your physician may have prescribed a limited course of a controlled substance. This medication may be given to help people with moderate or severe pain or for other medical conditions, but there are risks involved with treatment. Common side effects may include nausea, constipation, drowsiness, sweating, itching, dry mouth, and rash. More serious side effects may include cognitive and motor impairment, like problems with thinking, concentrating, alertness, and movement (e.g. slowed reflexes), and driving and operating heavy machinery can be dangerous. It is important for you to talk to your physician if you have these side effects or questions. These controlled substances can produce physical dependence and be habit-forming if taken for an extended period of time, which means that the body has gotten used to them and may experience withdrawal symptoms if they are abruptly stopped. Withdrawal symptoms can include runny nose, sweating, goose bumps, diarrhea, abdominal cramping, rapid heartbeat, difficulty sleeping, and nervousness. Please dispose of unused and medications per pharmacy guidance. Education Materials Hemorrhoids Introduction Hemorrhoids are swollen veins in and around the rectum or anus. Hemorrhoids can cause pain, itching, or bleeding. Most of the time, they do not cause serious problems. They usually get better with diet changes, lifestyle changes, and other home treatments. Follow these instructions at home: Eating and drinking ??? Eat foods that have fiber, such as whole grains, beans, nuts, fruits, and vegetables. Ask your doctor about taking products that have added fiber (fiber supplements). ??? Drink enough fluid to keep your pee (urine) clear or pale yellow. For Pain and Swelling ??? Take a warm-water bath (sitz bath) for 20 minutes to ease pain. Do this 3???4 times a day. ??? If directed, put ice on the painful area. It may be helpful to use ice between your warm baths.? Put ice in a plastic bag. ? Place a towel between your skin and the bag. ? Leave the ice on for 20 minutes, 2???3 times a day. General instructions ??? Take dbam-zrt-zdsccpt and prescription medicines only as told by [...] doctor if: ??? You have any of these: ? Pain and swelling that do not get [...] 06/23/2009 Document Revised: 02/19/2017 Document Reviewed: 05/28/2016 ?? 2017 Elsevier Diverticulosis Diverticulosis is the condition [...] getting enough exercise. ??? Smoking. ??? Taking bxao-whs-opkeazb pain medicines, like aspirin and ibuprofen. SYMPTOMS [...] HOME CARE INSTRUCTIONS ??? Drink at least 6???8 glasses of water each day to prevent constipation. ??? Try not to strain when you have a bowel movement. ??? Keep all follow-up appointments. If you have had an infection before: ??? Increase the fiber in your diet as [...] IF: ??? Your pain gets worse. ??? Your bloating becomes very bad. ??? You have a [...] 06/11/2005 Document Revised: 09/19/2014 Document Reviewed: 08/09/2014 [employer] Interactive Patient Education ?? 2017 [employer] Colon Polyps Introduction Polyps are tissue [...] is more likely to develop in people who: ??? Have a family history of colon cancer or colon polyps. ??? Are older than 50 or older than 45 if they are . ??? Have inflammatory bowel disease, such as ulcerative colitis or Crohn disease. ??? Are overweight. ??? Smoke cigarettes. ??? Do not get enough exercise. ??? Drink too much alcohol. ??? Eat a diet that is: ? High in fat and red meat. ? Low in fiber. ??? Had childhood cancer that was treated with abdominal radiation. What are the signs or symptoms? Most polyps do not cause symptoms. If you have symptoms, they may include: ??? Blood coming from your rectum when having a bowel movement. ??? Blood in your stool. The stool may look dark red or black. [...] cancer treatment. Follow these instructions at home: Diet ??? Eat plenty of fiber, such as fruits, [...] recommended by your health care provider. General instructions ??? Do notsmoke cigarettes. ??? Do notdrink alcohol [...] 06/10/2005 Document Revised: 02/19/2017 Document Reviewed: 08/04/2016 ?? 2017 Elsevier Colonoscopy, Care After These instructions give you information on caring for yourself after your procedure. Your doctor may also give you more specific instructions. Call your doctor if you have any problems or questions after your procedure. HOME CARE ???Do not drive for 24 hours. ???Do not sign important papers or use machinery for 24 hours. ???You may shower. ???You may go back to your usual activities, but go slower for the first 24 hours. ???Take rest breaks often during the first 24 hours. ???Walk around or use warm packs on your belly (abdomen) if you have belly cramping or gas. ???Drink enough fluids to keep your pee (urine) clear or pale yellow. ???Resume your normal diet. Avoid heavy or fried foods. ???Avoid drinking alcohol for 24 hours or as told by your doctor. ???Only take medicines as told by your doctor. If a tissue sample (biopsy) was taken during the procedure: ???Do not take aspirin or blood thinners for 7 days, or as told by your doctor. ??? Do not drink alcohol for 7 days, or as told by your doctor. ???Eat soft foods for the first 24 hours. GET HELP IF: You still have a small amount of blood in your poop (stool) 2???3 days after the procedure. GET HELP RIGHT AWAY IF: ???You have more than a small amount of blood in your poop. ???You see clumps of tissue (blood clots) in your poop. ???Your belly is puffy (swollen). ???You feel sick to your stomach (nauseous) or throw up (vomit). ???You have a fever. ???You have belly pain that gets worse and medicine does not help. MAKE SURE YOU: ???Understand these instructions. ???Will watch your condition. ???Will get help right away if you are not doing well or get worse. Document Released: 10/17/2011 Document Revised: 09/19/2014 Document Reviewed: 05/22/2014 ExitCare?? Patient Information ??2015 [employer]. This information is not intended to replace advice given to you by your health care provider. Make sure you discuss any questions you have with your health care provider. Emergency Awareness and Preventative Care STROKE is an EMERGENCY Every Minute Counts Act FAST and Check for these signs: FACE Does the face look uneven? ARM Does one arm drift down? SPEECH Does their speech sound strange? TIME Call at any sign of stroke Stroke Risk Factors Atrial Fibrillation (irregular heartbeat) Diabetes Family history of stroke Heart Disease Heavy alcohol use High Blood Pressure High Cholesterol Physical inactivity and obesity Smoking Cigarette Smoking The facts are clear, cigarette smoking will shorten your life. Smoking can cause many illnesses along the way. As a healthcare provider, we recommend that you stop smoking. Assistance with quitting is available by contacting 2-597-XRCNNOW. This is a free resource providing counseling, support, and referral. Or you may contact your personal physician. [place] Suicide Prevention Lifeline: The National Suicide Prevention Lifeline is a national network of local crisis centers that provides free and confidential emotional support to people in suicidal crisis or emotional distress 24 hours a day, 7 days a week. Don't Wait! Stop a Heart Attack Before it Starts What is a heart attack? A heart attack is damage or to a part of the heart from severely decreased or lack of blood flow to the heart. Over time, arteries can become narrow from the buildup of fat and cholesterol, which is called plaque. The plaque can rupture causing a blood clot to form. When the blood clot forms, the artery can become severely narrowed or completely blocked, causing a heart attack. Heart attack is the leading cause of in the [place]. 85% of muscle damage occurs within the first 2 hours. Delay in the recognition of heart attack symptoms increases the chances of . Know the early symptoms of a heart attack: Nausea Feeling of fullness in chest Jaw Pain Pain that travels down one or both arms Fatigue/being tired Anxiety Back Pain Chest pressure, squeezing, or discomfort Shortness of breath Sweating, or a cold sweat Feeling of impending doom There are unusual signs of a heart attack, too! Women, the elderly, and diabetics may present with atypical symptoms: Fainting/dizziness Weakness Confusion Risk Factors for a Heart Attack Some heart disease risk factors, such as age and family history, cannot be changed. Others, like smoking and lack of exercise, can be changed. Smoking High Cholesterol High Blood Pressure Family History Obesity Age Gender (Males are at higher risk) Lack of Exercise Diabetes Diet Stress Excessive Alcohol Intake If you or someone you know is experiencing the signs and symptoms of a heart attack, DON???T DELAY. Call immediately and seek help. If someone collapses, perform CPR! Do not attempt to drive if you are having symptoms of heart attack. Hands-Only CPR Why Hands-Only CPR? Hands-Only CPR has been shown to be as effective as conventional CPR for cardiac arrests that occur outside of a hospital. Survival depends on immediately receiving CPR from someone nearby. How do you perform Hands-Only CPR? There are two easy steps: Call 05-29- if you see a teen or adult collapse Push hard and fast in the center of the chest at a beat of 100 beats per minute. Save a life! 4 WAYS TO GET AHEAD OF SEPSIS SEPSIS is a MEDICAL EMERGENCY. Time matters! Infections put you and your family at risk for a life-threatening condition called sepsis. Sepsis is the body's extreme response to an infection. It is life-threatening, and without timely treatment, sepsis can rapidly lead to tissue damage, organ failure, and . Sepsis happens when an infection you already have-in your skin, lungs, urinary tract or somewhere else-triggers a chain reaction throughout your body. 1 PREVENT INFECTIONS Take good care of chronic conditions. Talk to your doctor about getting the recommended vaccines. 2 PRACTICE GOOD HYGIENE Wash your hands frequently. Keep cuts or open sores clean and covered until they are healed. 3 KNOW THE SYMPTOMS Confusion or disorientation Shortness of breath High heart rate Fever, shivering, or feeling very cold Extreme pain or discomfort Clammy or sweaty skin 4 ACT FAST Get medical care IMMEDIATELY if you suspect sepsis or if you have an infection that is not getting better or is getting worse. To learn more about sepsis and how to prevent infections, visit www.cdc.gov/sepsis. Patient Portal Reminder: Be sure to sign up for the [facility] patient portal, which gives you 20/04 access to your medical information ??? including these discharge instructions ??? using your computer, smartphone, or tablet. Just go to [employer] to get started. Questions? Call . Test Results Laboratory or Other Results This Visit (last charted value for your 01/06/2019 visit) No Laboratory or Other Results This Visit Patient Name:EDMAR BAKER Mnotse I have received this information and was given the opportunity to ask questions. Patient/Printed Circuit Board Assembly Repairer Name: Patient/Printed Circuit Board Assembly Repairer Signature: Relationship to Patient: Clinician/Hospital Printed Circuit Board Assembly Repairer Signature: Date: documented in this encounter Plan of Treatment Not on file documented as of this encounter Visit Diagnoses Not on filedocumented in this encounter
--- OUTSIDE RECORDS SUMMARY | 2025-05-15 09:15 | XMS_ITS | Encounter Summary ---
Author Organization [employer] ([place], [place], [place], [place]) Address [address] [place] [address] Care Team Providers Care Chart Picker Name Role Phone Unavailable Primary Care Provider Unavailabl e Encounter Details Date Type Department Care Team (Late st Contact Info) Description 12/25/2018 Transcribed Document [facility] [place] Family Medicine [address] [place] [address] ProviderMiah MD [address], [place] [address] Social History Tobacco Use Types Packs/Day Years Used Date Smoking Tobacco: Never Assessed Sex and Gender Information Value Date Recorded Sex Assigned at Not on file Legal Sex Male 7:06 PM CDT Gender Identity Not on file Sexual Orientation Not on file documented as of this encounter Miscellaneous Notes * Cerner Conversion Note - Historical ProviderMD - 12/25/2018 5:32 PM CDT Education-(VTE) / (DVT) Entered On: 12/25/2018 19:57 EDT Performed On: 12/25/2018 17:32 EDT by Sierra Hamilton, Rn Teaching/Learning Assessment Barriers To Learning : None evident Highest Level of Education : High school Readiness to Learn : Explanation Learning Style Preferences Patient : None Learning Style Preferences Family : None Sierra Hamilton, Ben - 12/25/2018 19:57 EDT documented in this encounter Plan of Treatment Not on file documented as of this encounter Visit Diagnoses Not on filedocumented in this encounter
--- OUTSIDE RECORDS SUMMARY | 2025-05-15 09:15 | XMS_ITS | Encounter Summary ---
Author Organization [employer] ([place], [place], [place], [place]) Address [address] [place] [address] Care Team Providers Care Fondant Puff Maker Name Role Phone Unavailable Primary Care Provider Unavailabl e Encounter Details Date Type Department Care Team (Late st Contact Info) Description 01/06/2019 Transcribed Document [facility] [place] [facility] [place] [address] ProviderMiah MD [address] [id number] Social History Tobacco Use Types Packs/Day Years Used Date Smoking Tobacco: Never Assessed Sex and Gender Information Value Date Recorded Sex Assigned at Not on file Legal Sex Male 7:06 PM CDT Gender Identity Not on file Sexual Orientation Not on file documented as of this encounter Miscellaneous Notes * Cerner Conversion Note - Historical ProviderMD - 01/06/2019 1:23 PM CDT [facility] PAC[facility] Summary Primary Physician: KELSEA CHAKRABORTY MD-GAE Finalized Date/Time: 01/06/19 14:25:23 Pt. Name: EDMAR BAKER /Sex: 1965 Male Med Rec #: [id number] Physician: KELSEA CHAKRABORTY MD-GAE Financial #: [id number] Pt. Type: O [place] [facility] [place] Admit/Disch: 01/06/19 11:40:00 - Institution: [facility] PACU Case Times Entry 1 In PACU I 01/06/19 13:50:00 Ready for PACU 01/06/19 14:25:00 Discharge Discharge from PACU 01/06/19 14:25:00 I [facility] PACU Case Times Audit 01/06/19 14:25:19 Test Borer Helper: ALL [place]: AISSATOUTRU <+> 1 Ready for PACU Discharge <+> 1 Discharge from PACU I Finalized By: RHYS MARTINEZ RN Document Signatures Signed By: RHYS MARTINEZ RN 01/06/19 14:25 Electronically signed by Jeanne [facility] Conversion Base Wad Operator Adjuster Cerner at 01/16/2023 8:54 AM CDT documented in this encounter Plan of Treatment Not on file documented as of this encounter Visit Diagnoses Not on filedocumented in this encounter
--- OUTSIDE RECORDS SUMMARY | 2025-05-15 09:15 | XMS_ITS | Encounter Summary ---
Author Organization [facility] ([place], [place], [place], [place]) Address [address] [place] [address] Care Team Providers Care Pollution Control Technician Name Role Phone Unavailable Primary Care Provider Unavailabl e Encounter Details Date Type Department Care Team (Late st Contact Info) Description 12/26/2018 Transcribed Document [facility] [place] Family Medicine [facility] [place] [address] ProviderMiah MD [address], [place] [id number] Social History Tobacco Use Types Packs/Day Years Used Date Smoking Tobacco: Never Assessed Sex and Gender Information Value Date Recorded Sex Assigned at Not on file Legal Sex Male 7:06 PM CDT Gender Identity Not on file Sexual Orientation Not on file documented as of this encounter Miscellaneous Notes * Cerner Conversion Note - Historical ProviderMD - 12/26/2018 5:40 PM CDT DATE OF CONSULTATION: REASON FOR CONSULTATION: GI blood loss. HISTORY OF PRESENT ILLNESS: Mr. Baker is a middle-aged male from [facility]. He has felt weak for about three or four weeks, orthostatic. He has had blood loss per rectum for months. He presented to hospital on the 25 of December after attending his grandchildren's athletic event. He stood up and passed out and was taken to local emergency room and transferred here. His hemoglobin was found to be 5.5. He has since been transfused. He underwent an EGD since he has been here. He had a colonoscopy seven or eight months ago was found to have hemorrhoids, but no other pathologic abnormality. Patient has been transfused multiple units of blood. He is sitting upright now, less weak, less hypertense, feels better. ALLERGIES: Demonstrates that he has no known drug allergies. MEDICATIONS: He is on, 1. Amlodipine 5 mg daily. 2. Bisoprolol 5 mg daily. 3. He is on docusate daily. 4. Lexapro 20 mg a day. 5. Gabapentin 800 mg t.i.d. 6. Pantoprazole 40 mg IV twice a day along with some p.r.n. medications. PAST MEDICAL HISTORY: Past history includes a right total knee replacement approximately 2015. He had traumatic event in 2010, fell off a roof of the house and he had bilateral tibial fractures apparently thigh fracture. He has been disabled since then. He has had hemorrhoidectomy 15 or 20 years ago. He was told that he would have bleeding again when he got older. He states he had rectal bleeding since about the time he was 19 years old, till the surgery 15-20 years ago and then he started having intermittent bleeding in the last few years. Apparently, he had blood test done often until October and he was told he only had a slight amount of anemia. At that time, he was already symptomatic he states. FAMILY HISTORY: His father of massive heart attack, age 59. His mother is still living. Siblings are living. He has a brother who is diabetic. SOCIAL HISTORY: He is for 18 years. He has two children from a prior marriage and then his present marriage they have a son together. He does not smoke. He does not drink. He occasionally smokes marijuana apparently often. He does not work. He did all kinds of construction type work, pastora, etc in the past. REVIEW OF SYSTEMS: Otherwise unremarkable. PHYSICAL EXAMINATION: GENERAL: Examination demonstrates a big man. VITAL SIGNS: He is over 6 feet tall, but he weighs over 300 pounds. He is afebrile. His heart rate 78, blood pressure is 140/70. HEENT: Normocephalic head. Eyes are reactive to light and accommodation. Nares patent. Oropharynx without lesion. NECK: Supple. No cervical, supraclavicular, or axillary adenopathy. LUNGS: Clear. HEART: Regular rate and rhythm. ABDOMEN: Without organomegaly. EXTREMITIES: He has no edema. MUSCULOSKELETAL: No bone pain. NEUROLOGIC: He is intact. LABORATORY STUDIES: His hemoglobin today is 9.4 at admission, prior to transfusion his hemoglobin was 6. His white count, platelet count is up, which we see with iron deficiency. His iron saturation was performed on December 25, yet he is not on iron yet and his saturation was only 2%. His ferritin was only 6. His folate and B12 are normal. He had chest x-ray without any acute processes. He had an EGD from Dr. Soler that demonstrated no pathologic abnormalities. IMPRESSION: Patient with a diagnosis of obvious gastrointestinal blood loss and iron deficiency. 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 I think it will be important that perhaps we attempt to resolve his source of blood loss, so I am going to have a general surgeon see him. It may end up he needs to see a colorectal surgeon for this hemorrhoid surgery perhaps. Giving him iron might help improve his hemoglobin temporarily, but unless we were able to disclose the underlying blood loss source and resolve it, we never going to get anywhere with this jonah. He also has some renal insufficiency and his GFR is 42. This may also have some interaction with stimulation of red cell production, but now that he has been transfused we would not know what his erythropoietin level really is and you know that will be something in the future we think about doing. I have made no other recommendations. I have answered the patient and his 's question. I have asked Dr. Juwan Emerson to come by tomorrow for consultation. I have started the patient's iron along with vitamin C since he is on a proton pump inhibitor. I have not made any other recommendations. Jhonatan Mishra M.D. Dict: 12/26/2018 17:40:45 Trans: 12/27/2018 01:41:22 CC1: Jhonatan Mishra M.D. CC2: Cecilio Herrmann MD CC3: Hannah Soler MD CC4: Dr. Davi Kennedy CC5: SAMEER Duran CC6: Alberta Yi M.D. CC7: Cinthia Roldan M.D. documented in this encounter Plan of Treatment Not on file documented as of this encounter Visit Diagnoses Not on filedocumented in this encounter
--- OUTSIDE RECORDS SUMMARY | 2025-05-15 09:15 | XMS_ITS | Encounter Summary ---
Author Organization [facility] ([place], [place], [place], [place]) Address [address] [place] [address] Care Team Providers Care Web Content Coordinator Name Role Phone Unavailable Primary Care Provider Unavailabl e Encounter Details Date Type Department Care Team (Late st Contact Info) Description 12/26/2018 Transcribed Document [facility] [place] [facility] [place] [address] ProviderMiah MD [address] [place] [address] Social History Tobacco Use Types Packs/Day Years Used Date Smoking Tobacco: Never Assessed Sex and Gender Information Value Date Recorded Sex Assigned at Not on file Legal Sex Male 7:06 PM CDT Gender Identity Not on file Sexual Orientation Not on file documented as of this encounter Miscellaneous Notes * Cerner Conversion Note - Miah ProviderMD - 12/26/2018 7:13 AM CDT Patient: EDMAR BAKER Age: 53 Years Sex: Male : 1965 Chief Complaint near syncope, severe anemia Reason for Consultation elevated creatinine, UTE vs CKD History of Present Illness Mr. Baker is a 53-year-old man with past medical history significant for morbid obesity and hypertension who reports that he has previous history of hemorrhoid disease requiring hemorrhoid surgery. He also reports that he had previous colon polyps which were removed via endoscopy a proximally 6 months ago. He states that he occasionally has bright red blood per rectum but he has not had this recently. He states that his most recent endoscopy was in [facility] in August 2018. Yesterday he was feeling lightheaded and dizzy and he presented to his local facility where he was found to have severe anemia with hemoglobin of 5.5 grams per deciliter. He is unaware of any pre-existing kidney disease. His only other past history is hypertension, osteoarthritis, morbid obesity. He denies difficulty with urination, urinary hesitancy, urgency, incontinence or abdominal pain. He denies nausea or vomiting. Reports that his most recent bowel movement yesterday December 25 a.m. was brown and solid. He denies bright red blood per rectum, black stool or watery stool. He denies nausea and vomiting. He reports she's never had upper endoscopy. At his initial presentation at his local facility his serum creatinine was reported at 2.2 mg/dL. He reports that he takes antihypertensive medications but he does not know his medicines. Chart review reveals that he takes losartan/ARB and thiazide type diuretic. He also takes amlodipine and beta kyra. Previously he had symptoms concerning for angina and he underwent cardiac catheterization. The patient reports that this was unremarkable and he did not require angioplasty or endovascular stenting. He denies chest pain, palpitations or shortness of breath. He denies fever or sweats. In general he's feeling much better and he is hungry. After initial fluid administration and transfusion his hemoglobin has improved and his serum creatinine is down trending. Currently is 1.5 mg/dL. Baseline serum creatinine is not known. Review of Systems A 10 point review of systems was collected and was negative except as mentioned in history of present illness Vital Signs Vitals Signs (last 24 hrs) Last Charted Minimum Maximum Temp 98.8 (DEC 26 04:00) 98.8 (DEC 26 04:) 98.2 (DEC 25 17:00) Mon HR 71 (DEC 26:) 63 (DEC 25 19:00) 99 (DEC 25 20:30) SBP 136 (DEC 26:) 106 (DEC 26 02:30) H 158 (DEC 25 18:00) DBP 75 (DEC 26:) L 54 (DEC 25 23:00) 87 (DEC 26 05:00) MAP 106 (DEC 26:) 73 (DEC 26 02:30) 113 (DEC 26 04:) SpO2 95 (DEC 26:) L 89 (DEC 26 04:00) 100 (DEC 25 18:00) Oxygen Settings (Last) No qualifying data available. Physical Exam Gen.: Alert, no acute distress, morbidly obese HEENT: No temporal wasting, no scleral icterus, no conjunctival erythema Neck: Supple no masses Cardiovascular: Normal S1-S2, regular rhythm, normal rate no rub no gallop Pulmonary: Clear to auscultation bilaterally no wheezes or rhonchi, fair air movement Gastrointestinal: Abdomen is soft, nontender, nondistended, no guarding, positive bowel sounds Genitourinary: No CVA tenderness Musculoskeletal good muscle tone no significant lower extremity edema Neuro/psych: Mood and affect are appropriate, thoughts are fluent, moves all extremities spontaneously, no focal deficits Skin: No lesions, rashes or ecchymoses, I did not examine the sacral area Assessment/Plan Anemia of acute blood loss GI bleed Acute kidney injury History of hypertension Morbid obesity Osteoarthritis Acute kidney injury: I do not have data regarding his baseline kidney function. He has a history of hypertension and he may have chronic kidney disease. He does not use NSAIDs. I suspect that he has acutely reduced renal perfusion in the setting of his acute anemia compounded by his antihypertensives, diuretics and ARB. -I'm encouraged that his serum creatinine is downtrending with transfusion and IV fluid administration. The patient is nothing by mouth prior to evaluation for possible GI bleed. -We will increase his IV fluid rate from 50 mL per hour to 100 mL per hour. -We will check his clearance and elect lites again this afternoon. -We are holding his diuretics and ARB. Recommend holding all antihypertensives until his blood pressure is stable with a systolic pressure consistently greater than 130 mmHg. -I'm encouraged that although the patient has osteoarthritis he is not using NSAIDs [id number]. Anemia of acute blood loss, probable GI bleed -He is receiving IV proton pump inhibitor. He is receiving IV fluids. Hemoglobin is improved after transfusion. -GI consult is pending. History of hypertension: -Hold ARB and diuretics. If his blood pressure rises above 130 mmHg recommend restarting his calcium channel kyra/amlodipine. May also benefit from beta kyra. However, until his blood pressure recovers recommend avoiding all antihypertensive medications. Osteoarthritis Avoid NSAIDs. The patient needs significant weight loss. Nabil Whitt M.D. Nephrology Partner with , Dr. Lizarraga and Dr. Pérez Note dictated with [employer] recognition system Provider Information Primary Care Physician - PHY, NOT LISTED Attending Physician - ENRIQUE MACHADO MD Admitting Physician - ENRIQUE MACHADO MD Consulting Physician - KELSEA CHAKRABORTY MD-GAE (gi bleed) Consulting Physician - ROLDAN HORNE MD - ute? creat 2.2. call in am Consulting Physician - DONALD JOHNSON MD-ONC - anemia, call in am. hg 5 Consulting Physician - BLANCA CAR MD-CAR Consulting Physician - NABIL WHITT MD-NEP Referring Physician - QING LLAMAS MD Problem List/Past Medical History Ongoing History of obstructive sleep apnea Historical No qualifying data Medications Inpatient amLODIPine, 5 mg= 1 Tab, Oral, Daily bisoprolol, 5 mg= 1 Tab, Oral, Daily cloNIDine, 0.1 mg= 1 Tab, Oral, Q4H, PRN Colace, 100 mg= 1 Cap, Oral, BID Dulcolax Laxative, 5 mg= 1 Tab, Oral, Daily, PRN DuoNeb 0.5 mg-2.5 mg/3 mL inhalation solution, 3 mL, Nebulized Inhalation , Q6H, PRN escitalopram, 20 mg= 1 Tab, Oral, Daily gabapentin, 800 mg= 2 Cap, Oral, TID hydrALAZINE, 10 mg= 0.5 mL, IV Push, Q4H, PRN MiraLax, 17 Gram= 1 Packet, Oral, Daily, PRN oxyCODONE, 5 mg= 1 Tab, Oral, Q8H, PRN Protonix IV, 40 mg, IV Push, BID Restoril, 15 mg= 1 Cap, Oral, At Bedtime, PRN Sodium Chloride 0.9% intravenous solution 1000 mL, 1000 mL, IntraVENous traMADol, 50 mg= 1 Tab, Oral, Q4H, PRN Tylenol, 650 mg= 2 Tab, Oral, Q4H, PRN Zofran, 4 mg= 2 mL, IV Push, Q4H, PRN Home amLODIPine 5 mg oral tablet, Oral, Daily atorvastatin 20 mg oral tablet, Oral, Daily bisoprolol 5 mg oral tablet, Oral, Daily escitalopram 20 mg oral tablet, Oral, Daily escitalopram 20 mg oral tablet, Oral, Daily fenofibrate 145 mg oral tablet, Oral, Daily gabapentin, 800 mg, Oral, TID hydroCHLOROthiazide 25 mg oral tablet, Oral, Daily losartan 100 mg oral tablet, Oral, Daily omeprazole, 40 mg, Oral, Daily traMADol 50 mg oral tablet, Oral, Q4H Allergies No Known Allergies Lab Results Test Name Test Result Date/Time Sodium Level 136 mmol/L 12/26/2018 06:33 EDT Sodium Level 134 mmol/L (Low) 12/25/2018 18:14 EDT Sodium Level 137 mmol/L 12/25/2018 18:08 EDT Potassium Level 3.5 mmol/L 12/26/2018 06:33 EDT Potassium Level 3.8 mmol/L 12/25/2018 18:14 EDT Potassium Level 4.2 mmol/L 12/25/2018 18:08 EDT Chloride Level 107 mmol/L 12/26/2018 06:33 EDT Chloride Level 103 mmol/L 12/25/2018 18:14 EDT Chloride Level 105 mmol/L 12/25/2018 18:08 EDT Carbon Dioxide Level 23 mmol/L 12/26/2018 06:33 EDT Carbon Dioxide Level 24 mmol/L 12/25/2018 18:14 EDT Carbon Dioxide Level 22 mmol/L 12/25/2018 18:08 EDT Anion Gap 10 12/26/2018 06:33 EDT Anion Gap 11 12/25/2018 18:14 EDT Anion Gap 14 12/25/2018 18:08 EDT Glucose Level 114 mg/dL (High) 12/26/2018 06:33 EDT Glucose Level 111 mg/dL (High) 12/25/2018 18:14 EDT Glucose Level 110 mg/dL (High) 12/25/2018 18:08 EDT Blood Urea Nitrogen 20 mg/dL 12/26/2018 06:33 EDT Blood Urea Nitrogen 20 mg/dL 12/25/2018 18:14 EDT Blood Urea Nitrogen 20 mg/dL 12/25/2018 18:08 EDT Creatinine Level 1.55 mg/dL (High) 12/26/2018 06:33 EDT Creatinine Level 1.81 mg/dL (High) 12/25/2018 18:14 EDT Creatinine Level 1.73 mg/dL (High) 12/25/2018 18:08 EDT eGFR 57 mL/min/1.73m2 (Low) 12/26/2018 06:33 EDT eGFR 48 mL/min/1.73m2 (Low) 12/25/2018 18:14 EDT eGFR 51 mL/min/1.73m2 (Low) 12/25/2018 18:08 EDT eGFR NonAfrican 47 mL/min/1.73m2 (Low) 12/26/2018 06:33 EDT eGFR NonAfrican 40 mL/min/1.73m2 (Low) 12/25/2018 18:14 EDT eGFR NonAfrican 42 mL/min/1.73m2 (Low) 12/25/2018 18:08 EDT Bun/Creatinine 12.9 12/26/2018 06:33 EDT Bun/Creatinine 11.0 12/25/2018 18:14 EDT Bun/Creatinine 11.6 12/25/2018 18:08 EDT Calcium Level 8.1 mg/dL (Low) 12/26/2018 06:33 EDT Calcium Level 8.4 mg/dL (Low) 12/25/2018 18:14 EDT Calcium Level 8.5 mg/dL 12/25/2018 18:08 EDT Protein Total 7.2 Gram/dL 12/25/2018 18:14 EDT Protein Total 6.9 Gram/dL 12/25/2018 18:08 EDT Albumin Level 3.5 Gram/dL 12/25/2018 18:14 EDT Albumin Level 3.4 Gram/dL 12/25/2018 18:08 EDT Globulin 3.7 Gram/dL 12/25/2018 18:14 EDT Globulin 3.5 Gram/dL 12/25/2018 18:08 EDT A/G Ratio 0.9 (Low) 12/25/2018 18:14 EDT A/G Ratio 1.0 (Low) 12/25/2018 18:08 EDT Bilirubin Total 0.4 mg/dL 12/25/2018 18:14 EDT Bilirubin Total 0.4 mg/dL 12/25/2018 18:08 EDT Alk Phos 59 Units/Liter 12/25/2018 18:14 EDT Alk Phos 63 Units/Liter 12/25/2018 18:08 EDT AST 94 Units/Liter (High) 12/25/2018 18:14 EDT AST 96 Units/Liter (High) 12/25/2018 18:08 EDT ALT 56 Units/Liter 12/25/2018 18:14 EDT ALT 58 Units/Liter 12/25/2018 18:08 EDT Magnesium Level 2.0 mg/dL 12/25/2018 18:14 EDT Magnesium Level 1.8 mg/dL 12/25/2018 18:08 EDT Folate Level 10.11 ng/mL 12/25/2018 18:14 EDT Vitamin B12 Level 241 pg/mL 12/25/2018 18:14 EDT WBC 9.4 K/uL 12/26/2018 06:33 EDT WBC 13.8 K/uL (High) 12/25/2018 20:39 EDT WBC 12.0 K/uL (High) 12/25/2018 18:14 EDT RBC 3.60 Million/uL (Low) 12/26/2018 06:33 EDT RBC 3.57 Million/uL (Low) 12/25/2018 20:39 EDT RBC 3.25 Million/uL (Low) 12/25/2018 18:14 EDT Hgb 7.4 Gram/dL (Low) 12/26/2018 06:33 EDT Hgb 6.6 Gram/dL (Low) 12/25/2018 20:39 EDT Hgb 6.0 Gram/dL (Critical) 12/25/2018 18:14 EDT Hct 25.9 % (Low) 12/26/2018 06:33 EDT Hct 25.2 % (Low) 12/25/2018 20:39 EDT Hct 22.5 % (Low) 12/25/2018 18:14 EDT MCV 71.9 fL (Low) 12/26/2018 06:33 EDT MCV 70.6 fL (Low) 12/25/2018 20:39 EDT MCV 69.2 fL (Low) 12/25/2018 18:14 EDT MCH 20.6 pg (Low) 12/26/2018 06:33 EDT MCH <20.0 pg (Low) 12/25/2018 20:39 EDT MCH <20.0 pg (Low) 12/25/2018 18:14 EDT MCHC 28.6 Gram/dL (Low) 12/26/2018 06:33 EDT MCHC <28.0 Gram/dL (Low) 12/25/2018 20:39 EDT MCHC <28.0 Gram/dL (Low) 12/25/2018 18:14 EDT Platelet Count 480 K/uL (High) 12/26/2018 06:33 EDT Platelet Count 592 K/uL (High) 12/25/2018 20:39 EDT Platelet Count 557 K/uL (High) 12/25/2018 18:14 EDT MPV 10.9 fL 12/26/2018 06:33 EDT MPV 10.2 fL 12/25/2018 20:39 EDT MPV 10.7 fL 12/25/2018 18:14 EDT RDW 19.8 % (High) 12/26/2018 06:33 EDT RDW 19.0 % (High) 12/25/2018 20:39 EDT RDW 18.6 % (High) 12/25/2018 18:14 EDT Neut % 65.3 % 12/25/2018 20:39 EDT Neut % 75.6 % (High) 12/25/2018 18:14 EDT Neut # 9.04 K/uL (High) 12/25/2018 20:39 EDT Neut # 9.09 K/uL (High) 12/25/2018 18:14 EDT Lymph % 26.5 % 12/25/2018 20:39 EDT Lymph % 16.6 % (Low) 12/25/2018 18:14 EDT Lymph # 3.66 K/uL 12/25/2018 20:39 EDT Lymph # 1.99 K/uL 12/25/2018 18:14 EDT Converse % 6.1 % 12/25/2018 20:39 EDT Converse % 6.1 % 12/25/2018 18:14 EDT Converse # 0.85 K/uL (High) 12/25/2018 20:39 EDT Converse # 0.73 K/uL 12/25/2018 18:14 EDT Eos % 0.9 % (Low) 12/25/2018 20:39 EDT Eos % 0.6 % (Low) 12/25/2018 18:14 EDT Eos # 0.12 K/uL 12/25/2018 20:39 EDT Eos # 0.07 K/uL 12/25/2018 18:14 EDT Baso % 0.5 % 12/25/2018 20:39 EDT Baso % 0.4 % 12/25/2018 18:14 EDT Baso # 0.07 K/uL 12/25/2018 20:39 EDT Baso # 0.05 K/uL 12/25/2018 18:14 EDT nRBC 0 (Low) 12/25/2018 18:14 EDT RBC Morphology Abnormal 12/25/2018 18:14 EDT Anisocytosis 1+ (Abnormal) 12/25/2018 18:14 EDT Poikilocytosis 1+ (Abnormal) 12/25/2018 18:14 EDT Hypochromia 1+ (Abnormal) 12/25/2018 18:14 EDT Ovalocytes 1+ (Abnormal) 12/25/2018 18:14 EDT Macrocytosis 1+ (Abnormal) 12/25/2018 18:14 EDT Slide Review No 12/26/2018 06:33 EDT Slide Review No 12/25/2018 20:39 EDT Slide Review Technologist 12/25/2018 18:14 EDT IG# 0 x10(3)/uL 12/25/2018 20:39 EDT IG# 0 x10(3)/uL 12/25/2018 18:14 EDT IG% 1 % 12/25/2018 20:39 EDT IG% 1 % 12/25/2018 18:14 EDT PT 11.2 Second(s) 12/25/2018 18:08 EDT INR 1.1 12/25/2018 18:08 EDT Iron Level 16 mcg/dL (Low) 12/25/2018 18:14 EDT % Iron Saturation 2.6 % (Low) 12/25/2018 18:14 EDT Ferritin Level 8.0 ng/mL (Low) 12/25/2018 18:14 EDT TIBC 620.0 mcg/dL (High) 12/25/2018 18:14 EDT TIBC 620.0 mcg/dL (High) 12/25/2018 18:14 EDT ABO/Rh O POS 12/25/2018 20:39 EDT ABO/Rh Repeat O POS 12/25/2018 18:14 EDT Antibody Screen (Tube) Negative ABSC 12/25/2018 20:39 EDT RBC Product Ready 12/25/2018 21:13 EDT RBC Product Ready RBC Ready 12/25/2018 20:00 EDT # of Units 2 12/25/2018 20:00 EDT Crossmatch Computer XM OK 12/25/2018 20:39 EDT Crossmatch Computer XM OK 12/25/2018 20:39 EDT Electronically signed by Jeanne, [facility] Conversion Park Activities Coordinator [employer]ner at 01/12/2023 6:21 PM CDT documented in this encounter Plan of Treatment Not on file documented as of this encounter Visit Diagnoses Not on filedocumented in this encounter
--- OUTSIDE RECORDS SUMMARY | 2025-05-15 09:15 | XMS_ITS | Encounter Summary ---
Author Organization [employer] ([place], [place], [place], [place]) Address [address] [place] [address] Care Team Providers Care Hot Patcher Name Role Phone Unavailable Primary Care Provider Unavailabl e Encounter Details Date Type Department Care Team (Late st Contact Info) Description 12/25/2018 Transcribed Document [facility] Radiology [address] [place] [address] Cecilio Machado MD [address] [place] [address] Social History Tobacco Use Types Packs/Day Years Used Date Smoking Tobacco: Never Assessed Sex and Gender Information Value Date Recorded Sex Assigned at Not on file Legal Sex Male 7:06 PM CDT Gender Identity Not on file Sexual Orientation Not on file documented as of this encounter Miscellaneous Notes * Cerner Conversion Note - Cecilio Machado MD - 12/25/2018 7:02 PM EDT Patient: EDMAR BAKER Age: 53 Years Sex: Male : 1965 Chief Complaint Syncope with anemia. Transferred from [facility] for Primary Care Provider BHARATHI, PILI History of Present Illness Unfortunate morbidly obese 53-year-old white male with history of hypertension dyslipidemia anxiety presents to [place] to hospital after gettingout ofhis car earlier today he had a presyncopal episode observed by his for 30 seconds. Taken to [place] emergency department and have a hemoglobin of 5.5 and blood pressure 91/56, creatinine of 2.2. Transient requests transfer to [facility] for GI consultation. He shouldn't states that he's been feeling progressively weak and tired since her [place] time. In September had multiple episodes of bright blood per rectum and he thought that it was his hemorrhoids acting up again. She denies any melena or black tarry stools. He said decreased appetite with chills but no fevers. He denies use of nonsteroidal anti-inflammatory drugs. He does not know the names of all of his medications he states his is in charge of this and his is not there's mother is at the bedside. Interestingly he states about one month ago he had a heart catheterization performed at [facility] in [facility] which he states was negative. Complains of dyspnea on exertion Review of Systems Constitutional: [No fevers, chills, sweats] dyspnea on exertion Eye: [No recent visual problems, eye discharge, eye pain, redness] HEENT: [No ear pain, nasal congestion, sore throat, voice changes] Respiratory: [No shortness of breath, cough, pain on breathing, sputum production] Cardiovascular: [No Chest pain, palpitations, syncope, shortness of breath while laying flat] dyspnea on exertion Gastrointestinal: [No nausea, vomiting, diarrhea, constipation] red blood per rectum in September multiple times. Genitourinary: [No hematuria, dysuria, incontinence, lesions on genitalia] Davin/Lymph: [Negative for bruising tendency, swollen lymph glands, nosebleeds, history of anticoagulation] Endocrine: [Negative for excessive thirst, excessive hunger, excessive urination, heat or cold intolerance] Musculoskeletal: [No back pain, neck pain, joint pain, muscle pain, decreased range of motion] Integumentary: [No rash, pruritus, abrasions, lesions] Neurologic: [No weakness, numbness, frequent headaches, tremors, blackouts] Psychiatric: [No anxiety, depression, mood changes, hallucinations] Vital Signs No qualifying data available Oxygen Settings (Last) No qualifying data available. General: [Alert and oriented, well nourished, no acute distress]. debiliated Neurologic: [Awake, alert, and oriented X3, CN II-XII intact]. Eye: [PERRL, EOMI, normal conjuctiva]. HENT: [Normocephalic, clear tympanic membranes, normal hearing, moist oral mucosa, no scleral icterus, no sinus tenderness]. Neck: [Supple, non-tender, no carotid bruits, no JVD, no lymphadenopathy]. Lungs: [Clear to auscultation and percussion, non-labored respiration]. Heart: [Normal rate, regular rhythm, no murmur, gallop or edema]. Abdomen: [Soft, non-tender, non-distended, normal bowel sounds, no masses]. obese Musculoskeletal: [Normal range of motion and strength, no tenderness or swelling]. Skin: [Skin is warm, dry and pink, no rashes or lesions]. Psychiatric: [Cooperative, appropriate mood and affect]. Physical Exam temp 98.2, 91/56, hr 90, rr14, 95% General: [Alert and oriented, well nourished, no acute distress]. Morbidly obese debilitated Neurologic: [Awake, alert, and oriented X3, CN II-XII intact]. Eye: [PERRL, EOMI, normal conjuctiva]. HENT: [Normocephalic, clear tympanic membranes, normal hearing, moist oral mucosa, no scleral icterus, no sinus tenderness]. Neck: [Supple, non-tender, no carotid bruits, no JVD, no lymphadenopathy]. Lungs: [Clear to auscultation and percussion, non-labored respiration]. Heart: [Normal rate, regular rhythm, no murmur, gallop or edema]. Abdomen: [Soft, non-tender, non-distended, normal bowel sounds, no masses]. Musculoskeletal: [Normal range of motion and strength, no tenderness or swelling]. Skin: [Skin is warm, dry and pink, no rashes or lesions]. Psychiatric: [Cooperative, appropriate mood and affect]. Assessment/Plan severe anemia with syncope hypotension abla-- brbpr -hg 5.5. transfsuing 2 u prbc -bun only 22 -check iron, ferritin, tibc -b12, folate syncope- anemia -check echo htn-hypotension- secondary to anemia HAYNES- likely anemia -check echocardiogram -check cxr -heart cath 1 month ago mae normal per his mother bo -creat 2.2 morbid obesity -6 ft 1 inch, 325 pounds -aids counselor diet and exercise anxiety-escitalopram full code - is NOK Acute blood loss anemia, Acute blood loss anemia Orders: acetaminophen, 650 mg, Oral, Tab, Q4H, PRN for Pain (Mild 1-3), Routine, Start 12/25/18 17:32:00 EDT albuterol-ipratropium, 3 mL, Nebulized Inhalation, Inh, Q6H, PRN for Shortness of Breath, Routine, Start 12/25/18 17:32:00 EDT bisacodyl, 5 mg, Oral, EC Tab, Daily, PRN for Constipation, Routine, Start 12/25/18 17:32:00 EDT docusate, 100 mg, Oral, Cap, BID, Routine, Start 12/25/18 21:00:00 EDT ondansetron, 4 mg, IV Push, Inj, Q4H, PRN for Nausea, Routine, Start 12/25/18 17:32:00 EDT pantoprazole, 40 mg, IV Push, Inj, BID, STAT, Start 12/25/18 17:35:00 EDT polyethylene glycol 3350, 17 Gram, Oral, Powder, Daily, PRN for Constipation, Routine, Start 12/25/18 17:32:00 EDT Sodium Chloride 0.9% intravenous solution 1,000 mL, 1,000 mL, Bag Volume (mL) = 1,000, Rate = 50 mL/Hr, IntraVENous, start date 12/25/18 17:32:00 EDT, Routine temazepam, 15 mg, Oral, Cap, At Bedtime, PRN for Sleep, Routine, Start 12/25/18 17:32:00 EDT Admit to Inpatient Ambulate CBC w/ Auto Diff CBC w/ Auto Diff CMP Comprehensive Metabolic Panel CMP Comprehensive Metabolic Panel Consult to Case Management Consult to Physician Consult to Physician Consult to Physician Diabetes Education (Nursing) DVT VTE Prophylaxis Education Facility Protocol Ferritin Level Folate Level Hemoglobin and Hematocrit Incentive Spirometry (Nursing) Intake and Output Iron Total TIBC Magnesium Level Magnesium Level May Shower Notify Provider Notify Provider Vital Signs NPO (immediate) Oxygen Therapy PT Evaluation and Treatment Pulse Oximetry Spot Check (Nursing) Resuscitation Status Saline Lock Insert Sequential Compression Device TIBC Vital Signs Vitamin B12 Level Weight (Routine) VTE Prophylaxis - Medical Sequential Compression Device Start: 12/25/18 17:32:00 EDT, Bilateral, Length: Knee High, While patient is in bed, Continuous Order (CECILIO MACHADO MD) Problem List/Past Medical History Ongoing No qualifying data Historical No qualifying data Hypertension, dyslipidemia, anxiety, pain Procedure/Surgical History Knee surgery, thumb surgery, appendectomy, hemorrhoid surgery No qualifying data available Allergies No active allergies Social History Smokes marijuana nearly daily. No alcohol or tobacco abuse. of 12 years his next of kin. He has 3 children. Full code. Family History Mother living at bedside healthy with dyslipidemia. Father of heart attack age 59. Diagnostic Results Chest x-ray pending Lab Results Psych facility did not send us any labs as requested but over the phone and they stated that that hemoglobin was 5.5, BUN of 20, creatinine of 2.2. They denied any other significant lab findings. Additional Documentation Code Status Start: 12/25/18 17:32:00 EDT, Full Code, Continuous Order documented in this encounter Plan of Treatment Not on file documented as of this encounter Visit Diagnoses Not on filedocumented in this encounter
--- OUTSIDE RECORDS SUMMARY | 2025-05-15 09:15 | XMS_ITS | Encounter Summary ---
Author Organization [employer] ([place], [place], [place], [place]) Address [address] [place] [address] Care Team Providers Care Carry In Worker Name Role Phone Unavailable Primary Care Provider Unavailabl e Encounter Details Date Type Department Care Team (Late st Contact Info) Description 12/25/2018 Transcribed Document [facility] [place] [facility] [place] [address] ProviderMiah MD [address] [place], [place] [id number] Social History Tobacco Use Types Packs/Day Years Used Date Smoking Tobacco: Never Assessed Sex and Gender Information Value Date Recorded Sex Assigned at Not on file Legal Sex Male 7:06 PM CDT Gender Identity Not on file Sexual Orientation Not on file documented as of this encounter Miscellaneous Notes * Cerner Conversion Note - Historical ProviderMD - 12/25/2018 5:32 PM CDT Care Management Assessment/Plan Entered On: 12/26/2018 9:30 EDT Performed On: 12/26/2018 9:29 EDT by Karla Bullard, RN Care Management Note Anticipated Discharge Date : 12/28/2018 21:00 EDT Care Management Note : Chart review. Patient admitted with GI bleed from outlying facility. Low blood counts on admission, has had blood transfusions. Nephrology and gastroenterology consulted. Per notes patient was independent in all areas prior to admisison. LOW readmisison score. Home plan...arh Documentation Status Complete : Yes Karla Bullard, RN - 12/26/2018 9:29 EDT Final Discharge Disposition Note-CM Discharge To Care Management : Home/Residential/[facility] or Self Care -01 Karla Bullard, RN - 12/26/2018 9:29 EDT documented in this encounter Plan of Treatment Not on file documented as of this encounter Visit Diagnoses Not on filedocumented in this encounter
--- OUTSIDE RECORDS SUMMARY | 2025-05-15 09:15 | XMS_ITS | Encounter Summary ---
Author Organization [employer] ([place], [place], [place], [place]) Address [address] [place] [address] Care Team Providers Care Shrimp Cleaner Name Role Phone Unavailable Primary Care Provider Unavailabl e Encounter Details Date Type Department Care Team (Late st Contact Info) Description 12/27/[address] [facility] Family Medicine [address] [place] [address] ProviderMiah MD [address] [place], [place] [id number] Social History Tobacco Use Types Packs/Day Years Used Date Smoking Tobacco: Never Assessed Sex and Gender Information Value Date Recorded Sex Assigned at Not on file Legal Sex Male 7:06 PM CDT Gender Identity Not on file Sexual Orientation Not on file documented as of this encounter Miscellaneous Notes * Cerner Conversion Note - Miah ProviderMD - 12/27/2018 12:20 PM CDT Patient Education Materials Follows:Medicine Hypotension As your heart beats, it forces blood through your body. This force is called blood pressure. If you have hypotension, you have low blood pressure. When your blood pressure is too low, you may not get enough blood to your brain. You may feel weak, feel light-headed, have a fast heartbeat, or even pass out (faint). Follow these instructions at home: Eating and drinking ??? Drink enough fluids to keep your pee (urine) clear or pale yellow. ??? Eat a healthy diet, and follow instructions from your doctor about eating or drinking restrictions. A healthy diet includes: ? Fresh fruits and vegetables. ? Whole grains. ? Low-fat (lean) meats. ? Low-fat dairy products. ??? Eat extra salt only as told. Do not add extra salt to your diet unless your doctor tells you to. ??? Eat small meals often. ??? Avoid standing up quickly after you eat. Medicines ??? Take kfik-ksr-zywjmsd and prescription medicines only as told by your doctor. ? Follow instructions from your doctor about changing how much you take (the dosage) of your medicines, if this applies. ? Do not stop or change your medicine on your own. General instructions ??? Wear compression stockings as told by your doctor. ??? Get up slowly from lying down or sitting. ??? Avoid hot showers and a lot of heat as told by your doctor. ??? Return to your normal activities as told by your doctor. Ask what activities are safe for you. ??? Do not use any products that contain nicotine or tobacco, such as cigarettes and e-cigarettes. If you need help quitting, ask your doctor. ??? Keep all follow-up visits as told by your doctor. This is important. Contact a doctor if: ??? You throw up (vomit). ??? You have watery poop (diarrhea). ??? You have a fever for more than 2?3 days. ??? You feel more thirsty than normal. ??? You feel weak and tired. Get help right away if: ??? You have chest pain. ??? You have a fast or irregular heartbeat. ??? You lose feeling (get numbness) in any part of your body. ??? You cannot move your arms or your legs. ??? You have trouble talking. ??? You get sweaty or feel light-headed. ??? You faint. ??? You have trouble breathing. ??? You have trouble staying awake. ??? You feel confused. This information is not intended to replace advice given to you by your health care provider. Make sure you discuss any questions you have with your health care provider. Document Released: 12/09/2010 Document Revised: 06/02/2017 Document Reviewed: 06/02/2017 Elsevier Interactive Patient Education ? 2017 [employer] Gastroenterology Gastrointestinal Bleeding Introduction Gastrointestinal bleeding is bleeding somewhere along the path food travels through the body (digestive tract). This path is anywhere between the mouth and the opening of the butt (anus). You may have blood in your poop (stools) or have black poop. If you throw up (vomit), there may be blood in it. This condition can be mild, serious, or even life-threatening. If you have a lot of bleeding, you may need to stay in the hospital. Follow these instructions at home: ??? Take lcye-mzv-bldarxh and prescription medicines only as told by your doctor. ??? Eat foods that have a lot of fiber in them. These foods include whole grains, fruits, and vegetables. You can also try eating 1?3 prunes each day. ??? Drink enough fluid to keep your pee (urine) clear or pale yellow. ??? Keep all follow-up visits as told by your doctor. This is important. Contact a doctor if: ??? Your symptoms do not get better. Get help right away if: ??? Your bleeding gets worse. ??? You feel dizzy or you pass out (faint). ??? You feel weak. ??? You have very bad cramps in your back or belly (abdomen). ??? You pass large clumps of blood (clots) in your poop. ??? Your symptoms are getting worse. This information is not intended to replace advice given to you by your health care provider. Make sure you discuss any questions you have with your health care provider. Document Released: 06/23/2009 Document Revised: 02/19/2017 Document Reviewed: 03/03/2016 ? 2017 Elsevier Hematology Iron Deficiency Anemia, Adult Iron-deficiency anemia is when you have a low amount of red blood cells or hemoglobin. This happens because you have too little iron in your body. Hemoglobin carries oxygen to parts of the body. Anemia can cause your body to not get enough oxygen. It may or may not cause symptoms. Follow these instructions at home: Medicines ??? Take wwdg-dnt-xbvedre and prescription medicines only as told by your doctor. This includes iron pills (supplements) and vitamins. ??? If you cannot handle taking iron pills by mouth, ask your doctor about getting iron through: ? A vein (intravenously). ? A shot (injection) into a muscle. ??? Take iron pills when your stomach is empty. If you cannot handle this, take them with food. ??? Do not drink milk or take antacids at the same time as your iron pills. ??? To prevent trouble pooping (constipation), eat fiber or take medicine (stool softener) as told by your doctor. Eating and drinking ??? Talk with your doctor before changing the foods you eat. He or she may tell you to eat foods that have a lot of iron, such as: ? Liver. ? Lowfat (lean) beef. ? Breads and cereals that have iron added to them (fortified breads and cereals). ? Eggs. ? Dried fruit. ? Dark green, leafy vegetables. ??? Drink enough fluid to keep your pee (urine) clear or pale yellow. ??? Eat fresh fruits and vegetables that are high in vitamin C. They help your body to use iron. Foods with a lot of vitamin C include: ? Oranges. ? Peppers. ? Tomatoes. ? Mangoes. General instructions ??? Return to your normal activities as told by your doctor. Ask your doctor what activities are safe for you. ??? Keep yourself clean, and keep things clean around you (your surroundings). Anemia can make you get sick more easily. ??? Keep all follow-up visits as told by your doctor. This is important. Contact a doctor if: ??? You feel sick to your stomach (nauseous). ??? You throw up (vomit). ??? You feel weak. ??? You are sweating for no clear reason. ??? You have trouble pooping, such as: ? Pooping (having a bowel movement) less than 3 times a week. ? Straining to poop. ? Having poop that is hard, dry, or larger than normal. ? Feeling full or bloated. ? Pain in the lower belly. ? Not feeling better after pooping. Get help right away if: ??? You pass out (faint). If this happens, do not drive yourself to the hospital. Call your local emergency services (911 in the [place] ??? You have chest pain. ??? You have shortness of breath that: ? Is very bad. ? Gets worse with physical activity. ??? You have a fast heartbeat. ??? You get light-headed when getting up from sitting or lying down. This information is not intended to replace advice given to you by your health care provider. Make sure you discuss any questions you have with your health care provider. Document Released: 10/17/2011 Document Revised: 06/03/2017 Document Reviewed: 06/03/2017 [employer] Interactive Patient Education ? 2017 [employer]. Obstetrics and Gynecology Near-Syncope Introduction Near-syncope is when you suddenly get weak or dizzy, or you feel like you might pass out (faint). During an episode of near-syncope, you may: ??? Feel dizzy or light-headed. ??? Feel sick to your stomach (nauseous). ??? See all white or all black. ??? Have cold, clammy skin. If you passed out, get help right away.Call your local emergency services (911 in the [place] Do not drive yourself to the hospital. Follow these instructions at home: Pay attention to any changes in your symptoms. Take these actions to help with your condition: ??? Have someone stay with you until you feel stable. ??? Do notdrive, use machinery, or play sports until your doctor says it is okay. ??? Keep all follow-up visits as told by your doctor. This is important. ??? If you start to feel like you might pass out, lie down right away and raise (elevate) your feet above the level of your heart. Breathe deeply and steadily. Wait until all of the symptoms are gone. ??? Drink enough fluid to keep your pee (urine) clear or pale yellow. ??? If you are taking blood pressure or heart medicine, get up slowly and spend many minutes getting ready to sit and then stand. This can help with dizziness. ??? Take pwzk-zub-jurpqhr and prescription medicines only as told by your doctor. Get help right away if: ??? You have a very bad headache. ??? You have unusual pain in your chest, tummy, or back. ??? You are bleeding from your mouth or rectum. ??? You have black or tarry poop (stool). ??? You have a very fast or uneven heartbeat (palpitations). ??? You pass out one time or more than once. ??? You have jerky movements that you cannot control (seizure). ??? You are confused. ??? You have trouble walking. ??? You are very weak. ??? You have vision problems. These symptoms may be an emergency. Do not wait to see if the symptoms will go away. Get medical help right away. Call your local emergency services (911 in the [place] Do not drive yourself to the hospital. This information is not intended to replace advice given to you by your health care provider. Make sure you discuss any questions you have with your health care provider. Document Released: 03/02/2009 Document Revised: 02/19/2017 Document Reviewed: 05/28/2016 ? 2017 Elsevier documented in this encounter Plan of Treatment Not on file documented as of this encounter Visit Diagnoses Not on filedocumented in this encounter
--- OUTSIDE RECORDS SUMMARY | 2025-05-15 09:15 | XMS_ITS | Encounter Summary ---
Author Organization [employer] ([place], [place], [place], [place]) Address [address] [place] [address] Care Team Providers Care Garbage Worker Name Role Phone Unavailable Primary Care Provider Unavailabl e Encounter Details Date Type Department Care Team (Late st Contact Info) Description 12/27/2018 Transcribed Document [facility] [place] [facility] [place] [address] ProviderMiah MD [address] [place] [address] Social History Tobacco Use Types Packs/Day Years Used Date Smoking Tobacco: Never Assessed Sex and Gender Information Value Date Recorded Sex Assigned at Not on file Legal Sex Male 7:06 PM CDT Gender Identity Not on file Sexual Orientation Not on file documented as of this encounter Miscellaneous Notes * Cerner Conversion Note - Historical ProviderMD - 12/27/2018 6:19 AM CDT Height and Weight, Clinical Dosing Entered On: 12/27/2018 6:19 EDT Performed On: 12/27/2018 6:19 EDT by June Torres RN Height and Weight, Clinical Dosing Height Source : Chart Height Entry Format : [place] Height, Feet : 6 ft(Converted to: 183 cm, 72 Inch) Height, Inches : 1 Inch(Converted to: 0 ft 1 Inch, 2.54 cm) Clinical Height : 185.42 cm Weight Source : Standing scale Weight Entry Format : [place] Clinical Dosing Weight : 146.45 kg Weight, Pounds : 322 lb Weight, Ounces : 3 oz Body Surface Area (BSA) : 2.64 m2 Body Mass Index : 42.6 kg/m2 (>HHI) [facility] Body Weight : 79 kg June Torres RN - 12/27/2018 6:19 EDT Electronically signed by Jeanne [facility] Conversion Head Baggage Porter Cerner at 01/12/2023 6:17 PM CDT documented in this encounter Plan of Treatment Not on file documented as of this encounter Visit Diagnoses Not on filedocumented in this encounter
--- OUTSIDE RECORDS SUMMARY | 2025-05-15 09:15 | XMS_ITS | Encounter Summary ---
Author Organization [employer] ([place], [place], [place], [place]) Address [address] [place] [address] Care Team Providers Care Coreroom Foundry Laborer Name Role Phone Unavailable Primary Care Provider Unavailabl e Encounter Details Date Type Department Care Team (Late st Contact Info) Description 12/26/2018 Transcribed Document [facility] [place] Family Medicine [address] [place] [address] ProviderMiah MD [address] [place] [address] Social History Tobacco Use Types Packs/Day Years Used Date Smoking Tobacco: Never Assessed Sex and Gender Information Value Date Recorded Sex Assigned at Not on file Legal Sex Male 7:06 PM CDT Gender Identity Not on file Sexual Orientation Not on file documented as of this encounter Miscellaneous Notes * Cerner Conversion Note - Historical ProviderMD - 12/26/2018 7:00 AM CDT Consult Phone Call Documentation Entered On: 12/26/2018 16:48 EDT Performed On: 12/26/2018 7:00 EDT by Clotilde Zuleta SWAN Phone Call for Consults Date and Time Call Returned : 12/26/2018 16:47 EDT Physician Returning Call : TAMELA RALPH MD-ONC Clotilde Zuleta SWAN - 12/26/2018 16:47 EDT documented in this encounter Plan of Treatment Not on file documented as of this encounter Visit Diagnoses Not on filedocumented in this encounter
--- OUTSIDE RECORDS SUMMARY | 2025-05-15 09:15 | XMS_ITS | Encounter Summary ---
Author Organization [employer] ([place], [place], [place], [place]) Address [address] [place] [address] Care Team Providers Care Rubber Compounder Formulator Name Role Phone Unavailable Primary Care Provider Unavailabl e Encounter Details Date Type Department Care Team (Late st Contact Info) Description 12/25/2018 Transcribed Document [facility] [place] Medicine [address] [place] [address] ProviderMiah MD [address], [place] [id number] Social History Tobacco Use Types Packs/Day Years Used Date Smoking Tobacco: Never Assessed Sex and Gender Information Value Date Recorded Sex Assigned at Not on file Legal Sex Male 7:06 PM CDT Gender Identity Not on file Sexual Orientation Not on file documented as of this encounter Miscellaneous Notes * [employer] Conversion Note - Historical ProviderMD - 12/25/2018 5:32 PM CDT Education-Diabetes Topics Entered On: 12/25/2018 19:57 EDT Performed On: 12/25/2018 17:32 EDT by Sierra Hamilton Rn Teaching/Learning Assessment Barriers To Learning : None evident Highest Level of Education : High school Baseline Knowledge of Topic : Limited Readiness to Learn : Explanation Learning Style Preferences Patient : None Learning Style Preferences Family : None Sierra Hamilton, Ben - 12/25/2018 19:57 EDT Electronically signed by Brent Angel Conversion Keyseating Machine Set Up Operator Faith at 01/12/2023 6:18 PM CDT documented in this encounter Plan of Treatment Not on file documented as of this encounter Visit Diagnoses Not on filedocumented in this encounter
--- OUTSIDE RECORDS SUMMARY | 2025-05-15 09:15 | XMS_ITS | Encounter Summary ---
Author Organization [employer] ([place], [place], [place], [place]) Address [address] [place] [address] Care Team Providers Care Transit Manager Name Role Phone Unavailable Primary Care Provider Unavailabl e Encounter Details Date Type Department Care Team (Late st Contact Info) Description 12/26/2018 Transcribed Document [facility] [place] [address] [place] [address] ProviderMiah MD [address], [place] [id number] Social History Tobacco Use Types Packs/Day Years Used Date Smoking Tobacco: Never Assessed Sex and Gender Information Value Date Recorded Sex Assigned at Not on file Legal Sex Male 7:06 PM CDT Gender Identity Not on file Sexual Orientation Not on file documented as of this encounter Miscellaneous Notes * Cerner Conversion Note - Historical ProviderMD - 12/26/2018 5:00 AM CDT Chart Check - Review Order Profile Entered On: 12/26/2018 6:14 EDT Performed On: 12/26/2018 5:00 EDT by Radha Wiley, Rn Chart Check Chart Reviewed Date and Time : 12/26/2018 6:14 EDT Powerplans Initiated/Discontinued as Appropriate : Yes All Active Orders Reviewed : Yes Radha Wiley, Rn - 12/26/2018 6:14 EDT documented in this encounter Plan of Treatment Not on file documented as of this encounter Visit Diagnoses Not on filedocumented in this encounter
--- OUTSIDE RECORDS SUMMARY | 2025-05-15 09:15 | XMS_ITS | Encounter Summary ---
Author Organization [employer] ([place], [place], [place], [place]) Address [address] [place] [address] Care Team Providers Care Ultrasonographer Name Role Phone Unavailable Primary Care Provider Unavailabl e Encounter Details Date Type Department Care Team (Late st Contact Info) Description 12/25/2018 Transcribed Document [facility] [place] [facility] [address] ProviderMiah MD [address], [place] [id number] Social History Tobacco Use Types Packs/Day Years Used Date Smoking Tobacco: Never Assessed Sex and Gender Information Value Date Recorded Sex Assigned at Not on file Legal Sex Male 7:06 PM CDT Gender Identity Not on file Sexual Orientation Not on file documented as of this encounter Miscellaneous Notes * Cerner Conversion Note - Historical ProviderMD - 12/25/2018 5:32 PM CDT Evaluation, Physical Therapy Entered On: 12/26/2018 14:34 EDT Performed On: 12/26/2018 9:10 EDT by ARSENIO CHACON, PT General Information, PT Visit Type, PT : Initial evaluation Patient Orders : Order Date Order Ordering 12/25/2018 17:32 PT Evaluation and Treatment Ordered By: ENRIQUE MACHADO MD Active Diagnoses : 12/25/2018 00:00 Acute posthemorrhagic anemia Therapy Diagnosis, PT : reduced mobility Admission Date : 12/25/2018 17:15 Personal Devices : Personal Devices No Devices Recorded Assistive Devices : Assistive Devices No Devices Recorded General Information Comment, PT : Pt had a syncope episode related to anemia yesterday. He feels much better today but is still undergoing testing. Has a history of DOMINIK, Heart cath in Oct 2018. ARSENIO CHACON, PT - 12/26/2018 14:23 EDT General Status Patient Received Status : Supine in bed Treatment Start Time : 12/26/2018 9:10 EDT Patient Left Status : Supine in bed, RN/PCT informed, Family/Visitors at bedside, All needs met and within reach RN/PCT Informed Comment : RN approved, with pt at PT exit. Treatment End Time : 12/26/2018 9:37 EDT Treatment Time : 27 Minute(s) Actual Treatment Time : 27 Minute(s) ARSENIO CHACON, PT - 12/26/2018 14:23 EDT History and Environment Living Situation, Therapy : Home Patient Lives With : Spouse Persons Providing Information : Patient Home Equipment Therapy, PT : None ARSENIO CHACON, PT - 12/26/2018 14:23 EDT Prior Level of Function PT GRID Prior LOF Ambulation, Household : Independent Prior LOF Ambulation, Community : Independent Prior LOF Bed Mobility : Independent Prior LOF Toileting : Independent Prior LOF Transfer : Independent ARSENIO CHACON, PT - 12/26/2018 14:23 EDT Intervention Summary Heart Rate/Pulse Pre-intervention : 110 bpm Heart Rate/Pulse During Intervention : 134 bpm Heart Rate/Pulse Post-intervention : 120 bpm ARSENIO CHACON, PT - 12/26/2018 14:23 EDT Upper Extremity Right UE Active ROM : WFL Right UE Strength : WFL Left UE Active ROM : WFL Left UE Strength : WFL ARSENIO CHACON, PT - 12/26/2018 14:23 EDT Lower Extremity RLE Active ROM : WFL Right LE Strength : L LLE Active ROM : L Left LE Strength : WFL ARSENIO CHACON, PT - 12/26/2018 14:23 EDT Functional Mobility Mobility Grid Supine to Sit : Rehab Modified independence Sit to Stand : Rehab Modified independence Stand to Sit : Rehab Modified independence Sit to Supine : Rehab Modified independence ARSENIO CHACON, PT - 12/26/2018 14:23 EDT Functional MobilityComment : Pt in room, ad josemanuel without PT assistance, No AD. PT unable to have pt walk in [place] as he is about to be receiving blood. ARSENIO CHACON, PT - 12/26/2018 14:23 EDT Gait Training/Assessment, PT Gait Assistance Level : Unable to assess/activity not appropriate ARSENIO CHACON, PT - 12/26/2018 14:23 EDT Neurological/Sensory Light Touch Response : Intact Light Touch Comment : BLE ARSENIO CHACON, PT - 12/26/2018 14:23 EDT Cognition Assessment, PT Orientation : Oriented x 4 ARSENIO CHACON, PT - 12/26/2018 14:23 EDT Plan of Care, PT PT Tx Plan/Goals Established w Patient : Yes Reason Tx/Plan Not Established W/ Pt PT : Pt is IND with current mobility and does not need nor want PT at this time. PT is in agreement that pt does not need acute therapy. Educated that should he remain in hospital and need further care, to request PT return to [place]. PT Frequency Rehab : Discontinue ARSENIO CHACON, PT - 12/26/2018 14:23 EDT Treatment Note Subjective Comment : Agreeable Patient's Response to Treatment : Good Additional Objective Information : See above. Pt performed rhomberg eyes open 30 seconds without issue and sharpened tandem stance without issues with eyes open. Advised to request PT return if needs change. Assessment : No therapy indicated at this time. Pt is at baseline with all mobility and PT is unable to exacerbate symptoms that created his syncope. Plan for Treatment : D/C order at this time due to IND. ARSENIO CHACON, PT - 12/26/2018 14:23 EDT Pain Assessment Pain Score Pre-Intervention : 0 Pain Score Post-Intervention. : 0 ARSENIO CHACON, PT - 12/26/2018 14:23 EDT Image 1 - Images currently included in the form version of this document have not been included in the text rendition version of the form. [facility] PT Charges PT Eval Moderate Complexity : 1 ARSENIO CHACON, PT - 12/26/2018 14:23 EDT Electronically signed by Jeanne [facility] Conversion Business Dean Cerner at 01/12/2023 6:19 PM CDT documented in this encounter Plan of Treatment Not on file documented as of this encounter Visit Diagnoses Not on filedocumented in this encounter
--- OUTSIDE RECORDS SUMMARY | 2025-05-15 09:15 | XMS_ITS | Encounter Summary ---
Author Organization [employer] ([place], [place], [place], [place]) Address [address] [place] [address] Care Team Providers Care Steel Crane Operator Name Role Phone Unavailable Primary Care Provider Unavailabl e Encounter Details Date Type Department Care Team (Late st Contact Info) Description 12/25/2018 Transcribed Document [facility] [place] Family Medicine [facility] [place] [address] ProviderMiah MD [address], [place] [phone] Social History Tobacco Use Types Packs/Day Years Used Date Smoking Tobacco: Never Assessed Sex and Gender Information Value Date Recorded Sex Assigned at Not on file Legal Sex Male 7:06 PM CDT Gender Identity Not on file Sexual Orientation Not on file documented as of this encounter Miscellaneous Notes * Cerner Conversion Note - Historical ProviderMD - 12/25/2018 8:31 PM CDT Pain Assessment Entered On: 12/26/2018 6:14 EDT Performed On: 12/26/2018 2:23 EDT by Radha Wiley Rn Intervention Information: traMADol Performed by Radha Wiley Rn on 12/26/2018 01:23:00 EDT traMADol,50mg Oral,Pain (Moderate 4-6) Pain Assessment Pain Assessment : Follow-up assessment Pain Scale Goal : 3 Pain Scale Used : 0-10 Scale Radha Wiley Rn - 12/26/2018 6:14 EDT Pain Scale Intensity : 3 Radha Wiley Rn - 12/26/2018 6:14 EDT Image 4 - Images currently included in the form version of this document have not been included in the text rendition version of the form. documented in this encounter Plan of Treatment Not on file documented as of this encounter Visit Diagnoses Not on filedocumented in this encounter
--- OUTSIDE RECORDS SUMMARY | 2025-05-15 09:15 | XMS_ITS | Encounter Summary ---
Author Organization [facility] ([place], [place], [place], [place]) Address [address] [place] [address] Care Team Providers Care Head Cleaning Porter Name Role Phone Unavailable Primary Care Provider Unavailabl e Encounter Details Date Type Department Care Team (Late st Contact Info) Description 12/27/2018 Transcribed Document [facility] [place] Family Medicine [facility] [place] [address] ProviderMiah MD [address] [place] [address] Social History Tobacco Use Types Packs/Day Years Used Date Smoking Tobacco: Never Assessed Sex and Gender Information Value Date Recorded Sex Assigned at Not on file Legal Sex Male 7:06 PM CDT Gender Identity Not on file Sexual Orientation Not on file documented as of this encounter Miscellaneous Notes * Cerner Conversion Note - Miah ProviderMD - 12/27/2018 12:09 PM CDT [address] , [place] [address] Patient Copy Patient Information: Name: KATIE BAKER Current Date: 12/27/2018 12:09:32 : 1965 Patient Address: [address] [facility] Patient Attending Physician: ENRIQUE MACHADO MD Primary Care Provider: Primary Care Provider Phone: Discharge Diagnosis: Acute blood loss anemia Weight on Admission: 322 lb, 0 oz Weight at Discharge: 322 lb, 3 oz Comment: Follow-up Instructions: With: Address: When: DONALDEILEEN ZAMUDIOMICHELLE [facility] [facility] [address] [place] [address] Business (1) Within 1 week Comments: Office to call with appoint/instructions With: Address: When: TAYLOR VILLAR [address] [place], [place] [id number] Business (1) 3:00 PM With: Address: When: Carlita Camille- roderick- cbc in 1 week Within 1 week With: Address: When: KELSEA CHAKRABORTY [address] [facility], [address] [place], [place] [id number] Business (1) Within 2 weeks With: Address: When: ODETTE IRIZARRYKIMMY [address] [facility], [address] [place] [address] Business (1) Within 3 to 5 days Comments: hemoroids with anemia Discharge Instructions: Diet after Discharge: Resume usual diet as tolerated Activity after Discharge: As tolerated Immunizations Documented During Stay: No Immunizations Found Heart Failure Discharge Instructions (if any): Stroke Related Discharge Instructions (if any): Warfarin Related Discharge Instructions (if any): Final Medication List: Printed Prescriptions ascorbic acid (Vitamin C 500 mg oral tablet) 1 Tablet(s) Oral Every Day. Refills: 0. docusate (Colace 100 mg oral capsule) 1 Capsule(s) Oral Two Times A Day as needed as needed for constipation. Refills: 0. ferrous sulfate (ferrous sulfate 325 mg (65 mg elemental iron) oral delayed release tablet) 1 Tablet(s) Oral Two Times A Day. Refills: 0. pantoprazole (pantoprazole 40 mg oral delayed release tablet) 1 Tablet(s) Oral Two Times A Day. Refills: 0. polyethylene glycol 3350 (MiraLax oral powder for reconstitution) 17 Gram(s) Oral Every Day for 14 Day(s). Refills: 0. Other Medications amLODIPine (amLODIPine 5 mg oral tablet) Oral Every Day. atorvastatin (atorvastatin 20 mg oral tablet) Oral Every Day. bisoprolol (bisoprolol 5 mg oral tablet) Oral Every Day. escitalopram (escitalopram 20 mg oral tablet) Oral Every Day. fenofibrate (fenofibrate 145 mg oral tablet) Oral Every Day. gabapentin 800 Milligram(s) Oral Three Times A Day. traMADol (traMADol 50 mg oral tablet) Oral Every 4 Hours. Patient Allergies: No Known Allergies Medication Instructions: Take your medications faithfully. Do NOT skip [...] cramping, rapid heartbeat, difficulty sleeping, and nervousness. Patient education materials: Hypotension As your heart beats, it forces [...] quickly after you eat. Medicines ??? Take trhv-sav-hwjppmz and prescription medicines only as told by [...] 06/02/2017 Elsevier Interactive Patient Education ? 2017 Elsevier Inc. Near-Syncope Introduction Near-syncope is when you suddenly [...] This can help with dizziness. ??? Take faya-plh-ijcuugv and prescription medicines only as told by [...] 02/19/2017 Document Reviewed: 05/28/2016 ? 2017 Elsevier Gastrointestinal Bleeding Introduction Gastrointestinal bleeding is bleeding [...] Follow these instructions at home: ??? Take uhtg-xat-uibxoxo and prescription medicines only as told by [...] 02/19/2017 Document Reviewed: 03/03/2016 ? 2017 Elsevier Iron Deficiency Anemia, Adult Iron-deficiency anemia is when you have a low amount of red blood cells or hemoglobin. This happens because you have too little iron in your body. Hemoglobin carries oxygen to parts of the body. Anemia can cause your body to not get enough oxygen. It may or may not cause symptoms. Follow these instructions at home: Medicines ??? Take suza-vys-iyvyaew and prescription medicines only as told by [...] 10/17/2011 Document Revised: 06/03/2017 Document Reviewed: 06/03/2017 [employer] Interactive Patient Education ? 2017 [employer]. Medication Leaflets: docusate (oral/rectal) (DOK ue sate) Colace, Diocto, Dioeze, Doc-Q-Lace, Docu, Docu Soft, Doculase, Docuprene, Docusil, Docusoft S, DocuSol, DOK, DSS, Dulcolax Stool Softener, Enemeez Mini, Timoteo-Tin, Octycine-250, Pedia-Lax Stool Softener, Cerrato Stool Softener, Promolaxin, Silace, Surfak Stool Softener, Nevaeh-Q-Lax, Vacuant What is the most important information I should know about docusate? You should not use docusate if you have a blockage in your intestines. Do not use docusate while you are sick with nausea, vomiting, or severe stomach pain. You should not take mineral oil while using docusate. What is docusate? Docusate is a stool softener. It makes bowel movements softer and easier to pass. Docusate is used to treat or prevent constipation, and to reduce pain or rectal damage caused by hard stools or by straining during bowel movements. Docusate may also be used for purposes not listed in this medication guide. What should I discuss with my healthcare provider before using docusate? You should not use docusate if you are allergic to it, or if you have: ? nausea, vomiting, or severe stomach pain; ?? a blockage in your intestines; or ?? chronic stomach pain that has not been checked by a doctor. You should not take mineral oil while using docusate. Ask a doctor or pharmacist if it is safe for you to take docusate: ? if you are on a low-salt diet; or ?? if you have recently had a sudden change in your bowel habits lasting for longer than 2 weeks. FDA category C. It is not known whether docusate will harm an unborn baby. Do not use this medicine without a doctor's advice if you are . It is not known whether docusate passes into breast milk or if it could harm a nursing baby. Do not use this medicine without a doctor's advice if you are breast-feeding a baby. Do not give this medicine to a child younger than 6 years old without the advice of a doctor. How should I use docusate? Use exactly as directed on the label, or as prescribed by your doctor. Do not use in larger or smaller amounts or for longer than recommended. Take this medicine with a full glass of water. Drink plenty of liquids while you are taking docusate. Do not crush, chew, break, or open a docusate capsule or tablet. Swallow it whole. Measure liquid medicine with the dosing syringe provided, or with a special dose-measuring spoon or medicine cup. If you do not have a dose-measuring device, ask your pharmacist for one. Mix the liquid with 6 to 8 ounces of milk, fruit juice, or infant formula and drink the mixture right away. After taking docusate by mouth (tablets, capsules, liquid), you should have a bowel movement within 12 to 72 hours. Do not take docusate rectal enema by mouth. It is for use only in your rectum. Wash your hands before and after using docusate enema. Try to empty your bowel and bladder just before using the enema. Remove the cap from the enema applicator tip. Lie down on your left side with your knees bent, and gently insert the tip of the enema applicator into the rectum. Squeeze the tube to empty the entire contents into the rectum. Throw away the tube, even if there is still some medicine left in it. For best results, hold in the enema for as long as possible, or until you have a bowel movement. The rectal enema should produce a bowel movement within 2 to 15 minutes. Do not use docusate for longer than 7 days unless your doctor has told you to. Call your doctor if your symptoms do not improve, or if you have not had a bowel movement within 1 to 3 days. Overuse of a stool softener can lead to serious medical problems. Store at room temperature away from moisture and heat. What happens if I miss a dose? Since docusate is used when needed, you may not be on a dosing schedule. If you are on a schedule, use the missed dose as soon as you remember. Skip the missed dose if it is almost time for your next scheduled dose. Do not use extra medicine to make up the missed dose. What happens if I overdose? Seek emergency medical attention or call the Poison Help line at . Overdose symptoms may include nausea, vomiting or stomach pain. What should I avoid while using docusate? Avoid using laxatives or other stool softeners unless your doctor has told you to. What are the possible side effects of docusate? Get emergency medical help if you have any of these signs of an allergic reaction: hives; difficult breathing; swelling of your face, lips, tongue, or throat. Stop using docusate and call your doctor at once if you have: ? pounding heartbeats or fluttering in your chest; ?? a light-headed feeling, like you might pass out; ?? rectal bleeding or irritation; ?? numbness or a rash around your rectum; ?? vomiting, severe diarrhea or stomach cramps; or ?? continued constipation, or no bowel movement. Common side effects may include: ? dizziness, weakness; ?? gas, bloating, mild diarrhea; ?? rectal irritation; or ?? sweating. This is not a complete list of side effects and others may occur. Call your doctor for medical advice about side effects. You may report side effects to FDA at 5-271-MMZ-8805. What other drugs will affect docusate? Other drugs may interact with docusate, including prescription and vkba-nfw-kpgiwto medicines, vitamins, and herbal products. Tell each of your health care providers about all medicines you use now and any medicine you start or stop using. Where can I get more information? Your pharmacist can provide more information about docusate. Remember, keep this and all other medicines out of the reach of children, never share your medicines with others, and use this medication only for the indication prescribed. Every effort has been made to ensure that the information provided by [employer]. [employer]') is accurate, up-to-date, and complete, but no guarantee is made to that effect. Drug information contained herein may be time sensitive. [employer] information has been compiled for use by healthcare practitioners and consumers in the [place] and therefore [employer] does not warrant that uses outside of the [place] are appropriate, unless specifically indicated otherwise. [employer] drug information does not endorse drugs, diagnose patients or recommend therapy. [employer] drug information is an informational resource designed to assist licensed healthcare practitioners in caring for their patients and/or to serve consumers viewing this service as a supplement to, and not a substitute for, the expertise, skill, knowledge and judgment of healthcare practitioners. The absence of a warning for a given drug or drug combination in no way should be construed to indicate that the drug or drug combination is safe, effective or appropriate for any given patient. [employer] does not assume any responsibility for any aspect of healthcare administered with the aid of information [employer] provides. The information contained herein is not intended to cover all possible uses, directions, precautions, warnings, drug interactions, allergic reactions, or adverse effects. If you have questions about the drugs you are taking, check with your doctor, nurse or pharmacist. Copyright 5357-5723 [employer]. Version: 3.03. Revision Date: 11/09/2013. ferrous sulfate (FARE us SUL fate) Feosol, Chris-Gen-Kristy, Chris-In-Kristy, Chris-Iron, FeroSul, Ferra Brett Caps, Fausto-Andrew, Ferrousal, Kiley Acevedo Iron 10, Slow Fe, Slow Release Iron What is the most important information I should know about ferrous sulfate? Ask a doctor or pharmacist if it is safe for you to take this medication if you have iron overload syndrome, hemolytic anemia (a lack of red blood cells), porphyria (a genetic enzyme disorder that causes symptoms affecting the skin or nervous system), thalassemia (a genetic disorder of red blood cells), if you are an alcoholic, or if you receive regular blood transfusions. Avoid taking any other multivitamin or mineral product within 2 hours before or after you take ferrous sulfate. Taking similar mineral products together at the same time can result in a mineral overdose or serious side effects. Seek emergency medical attention if you think you have used too much of this medicine, or if anyone has accidentally swallowed it. An overdose of iron can be fatal, especially in a young child. Overdose symptoms may include nausea, severe stomach pain, bloody diarrhea, coughing up blood or vomit that looks like coffee grounds, shallow breathing, weak and rapid pulse, pale skin, blue lips, and seizure (convulsions). Take ferrous sulfate on an empty stomach, at least 1 hour before or 2 hours after a meal. Avoid taking antacids or antibiotics within 2 hours before or after taking ferrous sulfate. Ferrous sulfate is only part of a complete program of treatment that may also include a special diet. It is very important to follow the diet plan created for you by your doctor or nutrition counselor. You should become very familiar with the list of foods you should eat to make sure you get enough iron from both your diet and your medication. What is ferrous sulfate? Ferrous sulfate is a type of iron. You normally get iron from the foods you eat. In your body, iron becomes a part of your hemoglobin (HEEM o felix bin) and myoglobin (MY o felix bin). Hemoglobin carries oxygen through your blood to tissues and organs. Myoglobin helps your muscle cells store oxygen. Ferrous sulfate is used to treat iron deficiency anemia (a lack of red blood cells caused by having too little iron in the body). Ferrous sulfate may also be used for purposes not listed in this medication guide. What should I discuss before taking ferrous sulfate? Ask a doctor or pharmacist if it is safe for you to take this medication if you have: ? iron overload syndrome; ?? hemolytic anemia (a lack of red blood cells); ?? porphyria (a genetic enzyme disorder that causes symptoms affecting the skin or nervous system); ?? thalassemia (a genetic disorder of red blood cells); ?? if you are an alcoholic; or ?? if you receive regular blood transfusions. It is not known whether this medication could be harmful to an unborn baby. Tell your doctor if you become during treatment. It is not known whether ferrous sulfate passes into breast milk or if it could harm a nursing baby. Do not use this medication without telling your doctor if you are breast-feeding a baby. Do not give ferrous sulfate to a child without the advice of a doctor. How should I take ferrous sulfate? Use exactly as directed on the label, or as prescribed by your doctor. Do not use in larger or smaller amounts or for longer than recommended. Take ferrous sulfate on an empty stomach, at least 1 hour before or 2 hours after a meal. Avoid taking antacids or antibiotics within 2 hours before or after taking ferrous sulfate . Take this medication with a full glass of water. Do not crush, chew, break, or open an extended-release tablet or capsule. Swallow the pill whole. Breaking or opening the pill may cause too much of the drug to be released at one time. Shake the oral suspension (liquid) well just before you measure a dose. Measure the liquid with a special dose-measuring spoon or medicine cup, not with a regular table spoon. If you do not have a dose-measuring device, ask your pharmacist for one. Ferrous sulfate can stain your teeth, but this effect is temporary. To prevent tooth staining, mix the liquid form of ferrous sulfate with water or fruit juice (not with milk) and drink the mixture through a straw. You may also clean your teeth with baking soda once per week to treat any tooth staining. Ferrous sulfate is only part of a complete program of treatment that may also include a special diet. It is very important to follow the diet plan created for you by your doctor or nutrition counselor. You should become very familiar with the list of foods you should eat to make sure you get enough iron from both your diet and your medication. Store at room temperature, away from moisture and heat. What happens if I miss a dose? Take the missed dose as soon as you remember. Skip the missed dose if it is almost time for your next scheduled dose. Do not take extra medicine to make up the missed dose. What happens if I overdose? Seek emergency medical attention or call the Poison Help line at , especially if a child has accidentally swallowed it. An overdose of ferrous sulfate can be fatal to a child. Overdose symptoms may include nausea, severe stomach pain, bloody diarrhea, coughing up blood or vomit that looks like coffee grounds, shallow breathing, weak and rapid pulse, pale skin, blue lips, and seizure (convulsions). What should I avoid while taking ferrous sulfate? Avoid taking any other multivitamin or mineral product within 2 hours before or after you take ferrous sulfate. Taking similar mineral products together at the same time can result in a mineral overdose or serious side effects. Avoid taking an antibiotic medicine within 2 hours before or after you take ferrous sulfate. This is especially important if you are taking an antibiotic such as ciprofloxacin (Cipro), demeclocycline (Declomycin), doxycycline (Adoxa, Doryx, Oracea, Vibramycin), levofloxacin (Levaquin), minocycline (Dynacin, Minocin, Solodyn, Vectrin), norfloxacin (Noroxin), ofloxacin (Floxin), or tetracycline (Brodspec, Panmycin, Sumycin, Tetracap). Certain foods can also make it harder for your body to absorb ferrous sulfate. Avoid taking this medication within 1 hour before or 2 hours after eating fish, meat, liver, and whole grain or 'fortified' breads or cereals. Avoid using antacids without your doctor's advice. Use only the type of antacid your doctor recommends. Some antacids can make it harder for your body to absorb ferrous sulfate. What are the possible side effects of ferrous sulfate? Get emergency medical help if you have any of these signs of an allergic reaction: hives; difficulty breathing; swelling of your face, lips, tongue, or throat. Less serious side effects may include: ? constipation; ?? upset stomach; ?? black or dark-colored stools; or ?? temporary staining of the teeth. This is not a complete list of side effects and others may occur. Call your doctor for medical advice about side effects. You may report side effects to FDA at 7-882-HDA-3638. What other drugs will affect ferrous sulfate? Tell your doctor about all other medicines you use, especially: ? acetohydroxamic acid (Lithostat); ?? chloramphenicol; ?? cimetidine (Tagamet); ?? etidronate (Didronel); ?? dimercaprol (an injection used to treat poisoning by arsenic, lead, or mercury); ?? levodopa (Larodopa, Dopar, Sinemet); ?? methyldopa (Aldomet); or ?? penicillamine (Cuprimine). This list is not complete and other drugs may interact with ferrous sulfate. Tell your doctor about all medications you use. This includes prescription, bzgm-rhj-cjyedzj, vitamin, and herbal products. Do not start a new medication without telling your doctor. Where can I get more information? Your pharmacist can provide more information about ferrous sulfate. Remember, keep this and all other medicines out of the reach of children, never share your medicines with others, and use this medication only for the indication prescribed. Every effort has been made to ensure that the information provided by [employer]') is accurate, up-to-date, and complete, but no guarantee is made to that effect. Drug information contained herein may be time sensitive. [employer] information has been compiled for use by healthcare practitioners and consumers in the [place] and therefore [employer] does not warrant that uses outside of the [place] are appropriate, unless specifically indicated otherwise. [employer] drug information does not endorse drugs, diagnose patients or recommend therapy. [employer] drug information is an informational resource designed to assist licensed healthcare practitioners in caring for their patients and/or to serve consumers viewing this service as a supplement to, and not a substitute for, the expertise, skill, knowledge and judgment of healthcare practitioners. The absence of a warning for a given drug or drug combination in no way should be construed to indicate that the drug or drug combination is safe, effective or appropriate for any given patient. [employer] does not assume any responsibility for any aspect of healthcare administered with the aid of information [employer] provides. The information contained herein is not intended to cover all possible uses, directions, precautions, warnings, drug interactions, allergic reactions, or adverse effects. If you have questions about the drugs you are taking, check with your doctor, nurse or pharmacist. Copyright 5708-2013 [employer]. Version: 4.03. Revision Date: 12/26/2011. polyethylene glycol 3350 (lita ee ETH il een GLYE kol) ClearLax, GaviLAX, Gialax, GlycoLax, MiraLax, [id number], [employer] ClearLax What is the most important information I should know about polyethylene glycol 3350? You should not use this medicine if you have a bowel obstruction or intestinal blockage. If you have any of these conditions, you could have dangerous or life-threatening side effects from polyethylene glycol 3350. Do not use polyethylene glycol 3350 more than once per day. Call your doctor if you are still constipated or irregular after using this medication for 7 days in a row. What is polyethylene glycol 3350? Polyethylene glycol 3350 is a laxative solution that increases the amount of water in the intestinal tract to stimulate bowel movements. Polyethylene glycol 3350 is used as a laxative to treat occasional constipation or irregular bowel movements. Polyethylene glycol 3350 may also be used for purposes not listed in this medication guide. What should I discuss with my healthcare provider before taking polyethylene glycol 3350? You should not use this medicine if you are allergic to polyethylene glycol, or if you have a bowel obstruction or intestinal blockage. If you have any of these conditions, you could have dangerous or life-threatening side effects from polyethylene glycol 3350. People with eating disorders (such as anorexia or bulimia) should not use this medication without the advice of a doctor. To make sure this medicine is safe for you, tell your doctor if you have: ? nausea, vomiting, or severe stomach pain; ?? ulcerative colitis; ?? irritable bowel syndrome; ?? kidney disease; or ?? if you have had a sudden change in bowel habits that has lasted 2 weeks or longer. FDA category C. It is not known whether polyethylene glycol 3350 will harm an unborn baby. Tell your doctor if you are or plan to become while using this medication. It is not known whether polyethylene glycol 3350 passes into breast milk or if it could harm a nursing baby. Tell your doctor if you are breast-feeding a baby. How should I take polyethylene glycol 3350? Follow all directions on your prescription label. Do not use this medicine in larger or smaller amounts or for longer than recommended. To use the powder form of this medicine, measure your dose with the medicine cap on the bottle. This cap should contain dose shelton on the inside of it. Pour the powder into 4 to 8 ounces of a cold or hot beverage such as water, juice, soda, coffee, or tea. Stir this mixture and drink it right away. Do not save for later use. Polyethylene glycol 3350 should produce a bowel movement within 1 to 3 days of using the medication. Polyethylene glycol 3350 normally causes loose or even watery stools. Do not use polyethylene glycol 3350 more than once per day. Call your doctor if you are still constipated or irregular after using this medication for 7 days in a row. Store at room temperature away from moisture and heat. What happens if I miss a dose? Take the missed dose as soon as you remember. Skip the missed dose if it is almost time for your next scheduled dose. Do not take extra medicine to make up the missed dose. What happens if I overdose? Seek emergency medical attention or call the Poison Help line at . What should I avoid while taking polyethylene glycol 3350? Follow your doctor's instructions about any restrictions on food, beverages, or activity. What are the possible side effects of polyethylene glycol 3350? Get emergency medical help if you have signs of an allergic reaction: hives; difficult breathing; swelling of your face, lips, tongue, or throat. Stop taking this medicine and call your doctor at once if you have: ? severe or bloody diarrhea; ?? rectal bleeding; ?? blood in your stools; or ?? severe and worsening stomach pain. Common side effects may include: ? bloating, gas, upset stomach; ?? dizziness; or ?? increased sweating. This is not a complete list of side effects and others may occur. Call your doctor for medical advice about side effects. You may report side effects to FDA at 4-448-ROG-1881. What other drugs will affect polyethylene glycol 3350? Other drugs may interact with polyethylene glycol 3350, including prescription and mgjq-bqa-pasapkn medicines, vitamins, and herbal products. Tell each of your health care providers about all medicines you use now and any medicine you start or stop using. Where can I get more information? Your pharmacist can provide more information about polyethylene glycol 3350. Remember, keep this and all other medicines out of the reach of children, never share your medicines with others, and use this medication only for the indication prescribed. Every effort has been made to ensure that the information provided by [employer]') is accurate, up-to-date, and complete, but no guarantee is made to that effect. Drug information contained herein may be time sensitive. [employer] information has been compiled for use by healthcare practitioners and consumers in the [place] and therefore [employer] does not warrant that uses outside of the [place] are appropriate, unless specifically indicated otherwise. [employer]'s drug information does not endorse drugs, diagnose patients or recommend therapy. [employer] drug information is an informational resource designed to assist licensed healthcare practitioners in caring for their patients and/or to serve consumers viewing this service as a supplement to, and not a substitute for, the expertise, skill, knowledge and judgment of healthcare practitioners. The absence of a warning for a given drug or drug combination in no way should be construed to indicate that the drug or drug combination is safe, effective or appropriate for any given patient. [facility] does not assume any responsibility for any aspect of healthcare administered with the aid of information [facility] provides. The information contained herein is not intended to cover all possible uses, directions, precautions, warnings, drug interactions, allergic reactions, or adverse effects. If you have questions about the drugs you are taking, check with your doctor, nurse or pharmacist. Copyright 7468-6396 [facility]. Version: 2.04. Revision Date: 12/31/2016. pantoprazole (oral/injection) (edge TOE pra zole) Protonix What is the most important information I should know about pantoprazole? Pantoprazole can cause kidney problems. Tell your doctor if you are urinating less than usual, or if you have blood in your urine. Diarrhea may be a sign of a new infection. Call your doctor if you have diarrhea that is watery or has blood in it. Pantoprazole may cause new or worsening symptoms of lupus. Tell your doctor if you have joint pain and a skin rash on your cheeks or arms that worsens in sunlight. You may be more likely to have a broken bone while taking this medicine long winder tender or more than once per day. What is pantoprazole? Pantoprazole is a proton pump inhibitor that decreases the amount of acid produced in the stomach. Pantoprazole is used to treat erosive esophagitis (damage to the esophagus from stomach acid caused by gastroesophageal reflux disease, or GERD) in adults and children who are at least 5 years old. Pantoprazole is usually given for up to 8 weeks at a time while your esophagus heals. Pantoprazole is also used to treat Santos-Hutson syndrome and other conditions involving excess stomach acid. Pantoprazole is not for immediate relief of heartburn. Pantoprazole may also be used for purposes not listed in this medication guide. What should I discuss with my healthcare provider before using pantoprazole? Heartburn can mimic early symptoms of a heart attack. Get emergency medical help if you have chest pain that spreads to your jaw or shoulder and you feel anxious or light-headed. You should not use this medicine if: ? you also take medicine that contains rilpivirine (Edurant, Complera, Juluca, Odefsey); or ?? you are allergic to pantoprazole or similar medicines (lansoprazole, omeprazole, Nexium, Prevacid, Prilosec, and others). Tell your doctor if you have ever had: ? low levels of magnesium in your blood; ?? lupus; or ?? osteoporosis or low bone mineral density. You may be more likely to have a broken bone in your hip, wrist, or spine while taking a proton pump inhibitor long-term or more than once per day. Talk with your doctor about ways to keep your bones healthy. It is not known whether this medicine will harm an unborn baby. Tell your doctor if you are or plan to become . You should not breast-feed while using this medicine. Pantoprazole is not approved for use by anyone younger than 5 years old. How should I use pantoprazole? Follow all directions on your prescription label and read all medication guides or instruction sheets. Use the medicine exactly as directed. Use the lowest dose for the shortest amount of time needed to treat your condition. Pantoprazole is taken by mouth (oral) or given as an infusion into a vein (injection). A healthcare provider may teach you how to properly use pantoprazole injection by yourself. Pantoprazole tablets are taken by mouth, with or without food. Pantoprazole oral granules should be taken 30 minutes before a meal. Do not crush, chew, or break the tablet. Swallow it whole. The oral granules should be mixed with applesauce or apple juice and given either by mouth or through a nasogastric (NG) tube. Read and carefully follow any Instructions for Use provided with your medicine. Ask your doctor or pharmacist if you do not understand these instructions. Use this medicine for the full prescribed length of time, even if your symptoms quickly improve. Call your doctor if your symptoms do not improve or if they get worse while you are using this medicine. This medicine can affect the results of certain medical tests. Tell any doctor who treats you that you are using pantoprazole. Pantoprazole may also affect a drug-screening urine test and you may have false results. Tell the laboratory staff that you use this medicine. Store this medicine at room temperature away from moisture, heat, and light. What happens if I miss a dose? Use the medicine as soon as you can, but skip the missed dose if it is almost time for your next dose. Do not use two doses at one time. What happens if I overdose? Seek emergency medical attention or call the Poison Help line at . What should I avoid while using pantoprazole? This medicine can cause diarrhea, which may be a sign of a new infection. If you have diarrhea that is watery or bloody, call your doctor. Do not use anti-diarrhea medicine unless your doctor tells you to. What are the possible side effects of pantoprazole? Get emergency medical help if you have signs of an allergic reaction: hives; difficulty breathing; swelling of your face, lips, tongue, or throat. Call your doctor at once if you have: ? severe stomach pain, diarrhea that is watery or bloody; ?? sudden pain or trouble moving your hip, wrist, or back; ?? bruising or swelling where intravenous pantoprazole was injected; ?? kidney problems--urinating less than usual, blood in your urine, swelling, rapid weight gain; ?? low magnesium--dizziness, fast or irregular heart rate, tremors (shaking) or jerking muscle movements, feeling jittery, muscle cramps, muscle spasms in your hands and feet, cough or choking feeling; or ?? new or worsening symptoms of lupus--joint pain, and a skin rash on your cheeks or arms that worsens in sunlight. Taking pantoprazole long-term may cause you to develop stomach growths called fundic gland polyps. Talk with your doctor about this risk. If you use pantoprazole for longer than 3 years, you could develop a vitamin B-12 deficiency. Talk to your doctor about how to manage this condition if you develop it. Common side effects may include: ? headache, dizziness; ?? stomach pain, gas, nausea, vomiting, diarrhea; ?? joint pain; or ?? fever, rash, or cold symptoms (most common in children). This is not a complete list of side effects and others may occur. Call your doctor for medical advice about side effects. You may report side effects to FDA at 1-707-XWU-4445. What other drugs will affect pantoprazole? Tell your doctor about all your other medicines, especially: ? digoxin; ?? methotrexate; or ?? a diuretic or 'water pill.' This list is not complete. Other drugs may affect pantoprazole, including prescription and zbss-cxb-ilylxtk medicines, vitamins, and herbal products. Not all possible drug interactions are listed here. Where can I get more information? Your pharmacist can provide more information about pantoprazole. Remember, keep this and all other medicines out of the reach of children, never share your medicines with others, and use this medication only for the indication prescribed. Every effort has been made to ensure that the information provided by [employer] is accurate, up-to-date, and complete, but no guarantee is made to that effect. Drug information contained herein may be time sensitive. [employer] information has been compiled for use by healthcare practitioners and consumers in the [place] and therefore [employer] does not warrant that uses outside of the [place] are appropriate, unless specifically indicated otherwise. [employer] drug information does not endorse drugs, diagnose patients or recommend therapy. [employer] drug information is an informational resource designed to assist licensed healthcare practitioners in caring for their patients and/or to serve consumers viewing this service as a supplement to, and not a substitute for, the expertise, skill, knowledge and judgment of healthcare practitioners. The absence of a warning for a given drug or drug combination in no way should be construed to indicate that the drug or drug combination is safe, effective or appropriate for any given patient. [employer] does not assume any responsibility for any aspect of healthcare administered with the aid of information [employer] provides. The information contained herein is not intended to cover all possible uses, directions, precautions, warnings, drug interactions, allergic reactions, or adverse effects. If you have questions about the drugs you are taking, check with your doctor, nurse or pharmacist. Copyright 0782-8082 [employer]. Version: 19.02. Revision Date: 03/23/2018. CIGARETTE SMOKING: The facts are clear, cigarette smoking will shorten your life. Smoking can cause many illnesses along the way. As a healthcare provider, we recommend that you stop smoking. Assistance with quitting is available by contacting 8-327-OZGN-NOW. This is a free resource providing counseling, support, and referral. Or you may contact your personal physician. 4 WAYS TO GET AHEAD OF SEPSIS SEPSIS is a MEDICAL EMERGENCY. Time matters! Infections put you and your family at risk for a life-threatening condition called sepsis. Sepsis is the body???s extreme response to an infection. It is life-threatening, and without timely treatment, sepsis can rapidly lead to tissue damage, organ failure, and . Sepsis happens when an infection you already have???in your skin, lungs, urinary tract or somewhere else???triggers a chain reaction throughout your body. 1 [...] sepsis or if you have an infection that???s not getting better or is getting worse. To learn more about sepsis and how to prevent infections, visit www.cdc.gov/sepsis. STROKE is an EMERGENCY [employer] ACT F.A.S.T! FACE ?? Facial droop ?? Uneven smile ARM ?? Arm numbness ?? Arm weakness SPEECH ?? Slurred speech ?? Difficulty speaking or understanding TIME ?? Call 911 and get to the hospital immediately Have the ambulance go to the nearest stroke center. STROKE Risk Factors High blood pressure High cholesterol Heart Disease Diabetes Smoking Heavy alcohol use Physical inactivity and obesity Atrial Fibrillation (irregular heartbeat) Family history of stroke Reminder: Be sure to sign up for the [facility] patient portal, which gives you 24/ access to your medical information ??? including these discharge instructions ??? using your computer, smartphone, or tablet. Just go to [employer] to get started. Questions? Call . [facility] would like to thank you for allowing us to assist you with your healthcare needs. I, KATIE BAKER, (or aircraft sales representative) have received the above patient education materials/instructions and have verbalized understanding: Patient Signature _ Date/Time Patient Certified Industrial Hygienist Signature (if needed) Date/Time Clinician/Hospital Certified Industrial Hygienist Signature (if needed) Date/Time documented in this encounter Plan of Treatment Not on file documented as of this encounter Visit Diagnoses Not on filedocumented in this encounter
--- OUTSIDE RECORDS SUMMARY | 2025-05-15 09:15 | XMS_ITS | Encounter Summary ---
Author Organization [employer] ([place], [place], [place], [place]) Address [address] [place] [address] Care Team Providers Care Process Server Name Role Phone Unavailable Primary Care Provider Unavailabl e Encounter Details Date Type Department Care Team (Late st Contact Info) Description 12/26/2018 Transcribed Document [facility] Family Medicine [facility] [place] [address] ProviderMiah MD [address] [place] [address] Social History Tobacco Use Types Packs/Day Years Used Date Smoking Tobacco: Never Assessed Sex and Gender Information Value Date Recorded Sex Assigned at Not on file Legal Sex Male 7:06 PM CDT Gender Identity Not on file Sexual Orientation Not on file documented as of this encounter Miscellaneous Notes * Cerner Conversion Note - Historical ProviderMD - 12/26/2018 12:13 PM CDT Patient: EDMAR BAKER Age: 53 Years Sex: Male : 1965 EGD performed urgently in the ICU for profound anemia. Versed 12 mg and Fentanyl 200 mcg given IV prior to the procedure. The esophagus was normal. Mild gastritis found in the stomach. Biopsies taken to evaluate for H. pylori. The duodenum was normal. No indication of UGI bleeding seen. Okay to advance his diet. Would transfuse as doing. Okay for discharge after transfusion as no recent bleeding has occurred. He already has a colonoscopy scheduled with Dr. Davi Pak in [place] and may followup with him as planned. documented in this encounter Plan of Treatment Not on file documented as of this encounter Visit Diagnoses Not on filedocumented in this encounter
--- OUTSIDE RECORDS SUMMARY | 2025-05-15 09:15 | XMS_ITS | Encounter Summary ---
Author Organization [employer] ([place], [place], [place], [place]) Address [address] [place] [address] Care Team Providers Care Assembly Worker Name Role Phone Unavailable Primary Care Provider Unavailabl e Encounter Details Date Type Department Care Team (Late st Contact Info) Description 12/26/2018 Transcribed Document [facility] [address] [place] [address] Cecilio Machado MD [address] [place] [address] Social History Tobacco Use Types Packs/Day Years Used Date Smoking Tobacco: Never Assessed Sex and Gender Information Value Date Recorded Sex Assigned at Not on file Legal Sex Male 7:06 PM CDT Gender Identity Not on file Sexual Orientation Not on file documented as of this encounter Miscellaneous Notes * Cerner Conversion Note - Cecilio Machado MD - 12/26/2018 10:06 AM EDT Patient: EDMAR BAKER Age: 53 years Sex: Male : 1965 Associated Diagnoses: None Author: CECILIO MACHADO MD Subjective Chief complaint 12/25/2018 17:18 EDT SOA . december 26, 2018. Patient's feeling much better today after transfusing a couple of units of blood. No more bright red blood per rectum. No fevers or chills. Coughing wheezing. States he's had good urine output. Awaiting EGD later today by GI. No chest pain or palpitations. Review of Systems Constitutional: Decreased activity, No fever, No chills. Respiratory: No shortness of breath, No cough. Cardiovascular: No chest pain, No palpitations. Gastrointestinal: No nausea, No vomiting, No diarrhea, No constipation. Genitourinary: No dysuria. Neurologic: Alert and oriented X4, No confusion. Psychiatric: No anxiety, No depression. Health Status Allergies: Allergic Reactions (Selected) No Known Allergies, Allergies (1) Active Reaction No Known Allergies None Documented Problem list: Medical History of obstructive sleep apnea / IMO [id number] / Confirmed, Active Problems (1) History of obstructive sleep apnea Current medications: (Selected) Inpatient Medications Ordered Colace: 100 mg, Oral, BID Dulcolax Laxative: 5 mg, Oral, Daily, PRN: Constipation DuoNeb 0.5 mg-2.5 mg/3 mL inhalation solution: 3 mL, Nebulized Inhalation, Q6H, PRN: Shortness of Breath MiraLax: 17 Gram, Oral, Daily, PRN: Constipation Protonix IV: 40 mg, IV Push, BID Restoril: 15 mg, Oral, At Bedtime, PRN: Sleep Sodium Chloride 0.9% intravenous solution 1,000 mL: 100 mL/Hr, IntraVENous Tylenol: 650 mg, Oral, Q4H, PRN: Pain (Mild 1-3) Zofran: 4 mg, IV Push, Q4H, PRN: Nausea amLODIPine: 5 mg, Oral, Daily bisoprolol: 5 mg, Oral, Daily cloNIDine: 0.1 mg, Oral, Q4H, PRN: Hypertension escitalopram: 20 mg, Oral, Daily gabapentin: 800 mg, Oral, TID hydrALAZINE: 10 mg, IV Push, Q4H, PRN: Hypertension oxyCODONE: 5 mg, Oral, Q8H, PRN: Pain (Severe 7-10) traMADol: 50 mg, Oral, Q4H, PRN: Pain (Moderate 4-6) Documented Medications Documented amLODIPine 5 mg oral tablet: Tab, Oral, Daily, 0 Refill(s) atorvastatin 20 mg oral tablet: Tab, Oral, Daily, 0 Refill(s) bisoprolol 5 mg oral tablet: Tab, Oral, Daily, 0 Refill(s) escitalopram 20 mg oral tablet: Tab, Oral, Daily, 0 Refill(s) escitalopram 20 mg oral tablet: Tab, Oral, Daily, 0 Refill(s) fenofibrate 145 mg oral tablet: Tab, Oral, Daily, 0 Refill(s) gabapentin: 800 mg, Oral, TID, 0 Refill(s) hydroCHLOROthiazide 25 mg oral tablet: Tab, Oral, Daily, 0 Refill(s) losartan 100 mg oral tablet: Tab, Oral, Daily, 0 Refill(s) omeprazole: 40 mg, Oral, Daily, 0 Refill(s) traMADol 50 mg oral tablet: Tab, Oral, Q4H, 0 Refill(s), Home Medications (11) Active amLODIPine 5 mg oral tablet , Oral, Daily atorvastatin 20 mg oral tablet , Oral, Daily bisoprolol 5 mg oral tablet , Oral, Daily escitalopram 20 mg oral tablet , Oral, Daily escitalopram 20 mg oral tablet , Oral, Daily fenofibrate 145 mg oral tablet , Oral, Daily gabapentin 800 mg, Oral, TID hydroCHLOROthiazide 25 mg oral tablet , Oral, Daily losartan 100 mg oral tablet , Oral, Daily omeprazole 40 mg, Oral, Daily traMADol 50 mg oral tablet , Oral, Q4H , Medications (17) Active Scheduled: (6) amLODIPine 5 mg tab 5 mg 1 Tab, Oral, Daily bisoprolol 5 mg tab 5 mg 1 Tab, Oral, Daily docusate sodium 100 mg cap 100 mg 1 Cap, Oral, BID escitalopram 20 mg tab 20 mg 1 Tab, Oral, Daily gabapentin 400 mg cap 800 mg 2 Cap, Oral, TID pantoprazole 40 mg inj 40 mg, IV Push, BID Continuous: (1) NaCl 0.9% 1,000 mL 1,000 mL, IntraVENous, 100 mL/Hr PRN: (10) acetaminophen 325 mg tab 650 mg 2 Tab, Oral, Q4H albuterol-ipratropium inh 3 mL 3 mL, Nebulized Inhalation, Q6H bisacodyl EC 5 mg tab 5 mg 1 Tab, Oral, Daily cloNIDine 0.1 mg tab 0.1 mg 1 Tab, Oral, Q4H hydrALAZINE 20 mg/1 mL inj 10 mg 0.5 mL, IV Push, Q4H ondansetron 4 mg/2 mL inj 4 mg 2 mL, IV Push, Q4H oxyCODONE 5 mg tab 5 mg 1 Tab, Oral, Q8H polyethylene glycol 3350 pwd 17 g pkt 17 Gram 1 Packet, Oral, Daily temazepam 15 mg cap 15 mg 1 Cap, Oral, At Bedtime traMADol 50 mg tab 50 mg 1 Tab, Oral, Q4H Objective VS/Measurements Vitals Signs (last 24 hrs) Last Charted Minimum Maximum Temp 98.8 (DEC 26 04:00) 98.8 (DEC 26 04:00) 98.2 (DEC 25 17:00) Mon HR 78 (DEC 26 12:20) 63 (DEC 25 19:00) 99 (DEC 25 20:30) SBP H 152 (DEC 26 12:20) 106 (DEC 26 02:30) H 158 (DEC 25 18:00) DBP 71 (DEC 26 12:20) L 54 (DEC 25 23:00) 87 (DEC 26 05:00) MAP 100 (DEC 26 12:20) 73 (DEC 26 02:30) 117 (DEC 26 12:05) SpO2 96 (DEC 26 12:20) L 89 (DEC 26 04:00) 100 (DEC 25 18:00) Physical Examination VS/Measurements Vitals Signs (last 24 hrs) Last Charted Minimum Maximum Temp 98.8 (DEC 26 04:00) 98.8 (DEC 26 04:00) 98.2 (DEC 25 17:00) Mon HR 78 (DEC 26 12:20) 63 (DEC 25 19:00) 99 (DEC 25 20:30) SBP H 152 (DEC 26 12:20) 106 (DEC 26 02:30) H 158 (DEC 25 18:00) DBP 71 (DEC 26 12:20) L 54 (DEC 25 23:00) 87 (DEC 26 05:00) MAP 100 (DEC 26 12:20) 73 (DEC 26 02:30) 117 (DEC 26 12:05) SpO2 96 (DEC 26 12:20) L 89 (DEC 26 04:00) 100 (DEC 25 18:00) , Measurements from flowsheet : Measurements 12/25/2018 17:18 EDT Height Source Chart Height Entry Format [place] Height/Length, STATELESS (ft) 6 ft Height/Length STATELESS 1 Inch CLINICALHEIGHT 185.42 cm [place] Body Weight 79 kg Weight Source Bed scale Weight Entry Format [place] Weight Kis[place] lb 322 lb CLINICALWEIGHT 146.36 kg Body Surface Area (BSA) 2.64 m2 Body Mass Index 42.6 kg/m2 >HHI General: Alert and oriented, No acute distress, Morbidly obese. Eye: Pupils are equal, round and reactive to light, Extraocular movements are intact. HENT: Normocephalic, Normal hearing. Neck: Supple, No jugular venous distention. Respiratory: Lungs are clear to auscultation, Breath sounds are equal. Cardiovascular: Normal rate, Regular rhythm. Gastrointestinal: Soft, Non-tender, Normal bowel sounds. Genitourinary: No costovertebral angle tenderness. Lymphatics: No lymphadenopathy neck, axilla, groin. Musculoskeletal: Normal range of motion, Normal strength. Integumentary: Dry, Intact. Neurologic: Alert, Oriented, Normal sensory. Psychiatric: Cooperative, Appropriate mood & affect. Review / Management Results review: Labs (Last four charted values) WBC 9.4 (DEC 26) H 13.8 (DEC 25) H 12.0 (DEC 25) HB L 7.4 (DEC 26) L 6.6 (DEC 25) C 6.0 (DEC 25) HCT L 25.9 (DEC 26) L 25.2 (DEC 25) L 22.5 (DEC 25) Plt H 480 (DEC 26) H 592 (DEC 25) H 557 (DEC 25) Na 136 (DEC 26) L 134 (DEC 25) 137 (DEC 25) K 3.5 (DEC 26) 3.8 (DEC 25) 4.2 (DEC 25) Cl 107 (DEC 26) 103 (DEC 25) 105 (DEC 25) CO2 23 (DEC 26) 24 (DEC 25) 22 (DEC 25) BUN 20 (DEC 26) 20 (DEC 25) 20 (DEC 25) Cr H 1.55 (DEC 26) H 1.81 (DEC 25) H 1.73 (DEC 25) Glu R H 114 (DEC 26) H 111 (DEC 25) H 110 (DEC 25) Ca L 8.1 (DEC 26) L 8.4 (DEC 25) 8.5 (DEC 25) PT 11.2 (DEC 25) INR 1.1 (DEC 25) AST H 94 (DEC 25) H 96 (DEC 25) ALT 56 (DEC 25) 58 (DEC 25) ALK P 59 (DEC 25) 63 (DEC 25) T Bili 0.4 (DEC 25) 0.4 (DEC 25) PTN 7.2 (DEC 25) 6.9 (DEC 25) ALB 3.5 (DEC 25) 3.4 (DEC 25) . Impression and Plan severe anemia with syncope hypotension abla-- brbpr -hg 5.5. transfsuing 2 u prbc. to 6.0 to 7.4 -bun only 22 -check iron, ferritin, tibc -b12, folate syncope- anemia -check echo htn-hypotension- secondary to anemia HAYNES- likely anemia -check echocardiogram -check cxr -heart cath 1 month ago mae normal per his mother bo on ckd -creat 2.2 to 1.55 morbid obesity -6 ft 1 inch, 325 pounds -savings counselor diet and exercise anxiety-escitalopram full code - is EDGARDOK. December 26, 2018. 35 minutes spent on this critical care patient in ICU transfuse 2 units of packed red blood cells yesterday hemoglobins improved from 5.5 up to 7.46 fin Kimberly units of blood he's had total I believe he had one at the outside facility and then 2 units here. Replace his creatinines go the right direction from 2.2 at the outside facility down to 1.5 here today. He does have iron deficiency anemia on the iron studies. Patient had colonoscopy in [place] by chayo? Discussed with Dr. Hannah Soler with GI recommends patient get outpatient colonoscopy performed. I'll recheck his CBC tomorrow and transfuse if needed. [employer] dictation system used. Computer program makes numerous spelling grammar mistakes. If you have any questions or concerns do not hesitate call Dr. Cecilio Cordero at cell phone number [phone]. documented in this encounter Plan of Treatment Not on file documented as of this encounter Visit Diagnoses Not on filedocumented in this encounter
--- OUTSIDE RECORDS SUMMARY | 2025-05-15 09:15 | XMS_ITS | Encounter Summary ---
Author Organization [employer] ([place], [place], [place], [place]) Address [address] [place] [address] Care Team Providers Care Rn Infusion Name Role Phone Unavailable Primary Care Provider Unavailabl e Encounter Details Date Type Department Care Team (Late st Contact Info) Description 12/26/2018 Transcribed Document [facility] [place] [address] [place] [address] ProviderMiah MD [address], [place] [address] Social History Tobacco Use Types Packs/Day Years Used Date Smoking Tobacco: Never Assessed Sex and Gender Information Value Date Recorded Sex Assigned at Not on file Legal Sex Male 7:06 PM CDT Gender Identity Not on file Sexual Orientation Not on file documented as of this encounter Miscellaneous Notes * Cerner Conversion Note - Historical ProviderMD - 12/26/2018 8:00 AM CDT Consult Phone Call Documentation Entered On: 12/26/2018 16:49 EDT Performed On: 12/26/2018 8:00 EDT by Clotilde Zuleta SWAN Phone Call for Consults Physician Returning Call : TAYLOR WHITT MD-[facility] Additional Information : Patient was seen by Dr. Whitt 12/26. Clotilde Zuleta SWAN - 12/26/2018 16:48 EDT documented in this encounter Plan of Treatment Not on file documented as of this encounter Visit Diagnoses Not on filedocumented in this encounter
--- OUTSIDE RECORDS SUMMARY | 2025-05-15 09:15 | XMS_ITS | Encounter Summary ---
Author Organization [employer] ([place], [place], [place], [place]) Address [address] [place] [address] Care Team Providers Care Family Consumer Science Teacher Name Role Phone Unavailable Primary Care Provider Unavailabl e Encounter Details Date Type Department Care Team (Late st Contact Info) Description 12/26/2018 Transcribed Document [facility] [place] [facility] [place] [address] ProviderMiah MD [address] [place], [place] [id number] Social History Tobacco Use Types Packs/Day Years Used Date Smoking Tobacco: Never Assessed Sex and Gender Information Value Date Recorded Sex Assigned at Not on file Legal Sex Male 7:06 PM CDT Gender Identity Not on file Sexual Orientation Not on file documented as of this encounter Miscellaneous Notes * Cerner Conversion Note - Miah ProviderMD - 12/26/2018 11:25 AM CDT Patient: EDMAR BAKER Age: 53 years Sex: Male : 1965 Associated Diagnoses: None Author: KELSEA CHAKRABORTY MD-[facility] Basic Information Source of history: Self, Family member. Present at bedside: Family member. Referral source: ENRIQUE MACHADO MD. History limitation: None. Chief Complaint 12/25/2018 17:18 EDT SOA Anemia History of Present Illness Gi consulted for evaluation of anemia. Patient presented to [facility] after a syncopal episode and found to have a hemoglobin of 5. Patient reports a history of heavy rectal bleeding that occured over a month ago. This persisted for 3 weeks. He describes BRBPR. He has has a known history of colon polyps and hemorrhoids and has had multiple colonoscopies. The last exam was around 6 months ago. He is scheduled to have a followup in January with Dr. Pak. He denies melena. He does have heartburn and takes Omeprazole daily. He has never had a EGD. Histories Past Medical History: No active or resolved past medical history items have been selected or recorded. Procedure history: No active procedure history items have been selected or recorded. Social History Social & Psychosocial Habits No Data Available . Family History: No family history items have been selected or recorded. Health Status Allergies: Allergic Reactions (All) No Known Allergies, Allergies (1) Active Reaction No Known Allergies None Documented Current medications: (Selected) Inpatient Medications Ordered Colace: [...] oral tablet: Tab, Oral, Q4H, 0 Refill(s), Medications (17) Active Scheduled: (6) amLODIPine 5 [...] tab 50 mg 1 Tab, Oral, Q4H Problem list: Medical History of obstructive sleep apnea / IMO [id number] / Confirmed, Active Problems (1) History of obstructive sleep apnea Review of Systems Constitutional: No fever, No chills, No weight gain, No weight loss. Eye: Blurring, No recent visual problem. Ear/Nose/Mouth/Throat: No dysphagia, No epistaxis, No hoarse voice, No sore throat. Respiratory: No shortness of breath, No cough, No hemoptysis. Cardiovascular: No chest pain, No palpitations, No claudication. Gastrointestinal: Heartburn, Belching, Abdominal pain, Rectal bleeding, No nausea, No vomiting, No diarrhea, No constipation, No bloating, No hematemesis, No change in bowel habits, No melena. Genitourinary: No dysuria, No hematuria. Hematology/Lymphatics: No bruising tendency, No bleeding tendency. Endocrine: No excessive thirst, No cold intolerance, No heat intolerance. Musculoskeletal: Joint pain, No muscle pain, No gait disturbance, No joint redness. Integumentary: No rash, No pruritus. Neurologic: No confusion, No dizziness, No headache, No seizure. Psychiatric: No anxiety, No depression. the rest of the 10 system review is negative Physical Examination VS/Measurements Vital Signs/Vital Measures 12/26/2018 8:56 EDT Oxygen Saturation 97 % 12/26/2018 6:30 EDT Heart Rate Monitored 71 bpm Systolic Blood Pressure 136 mmHg Diastolic Blood Pressure 75 mmHg Mean Arterial Pressure (MAP)-BMDI 106 Oxygen Saturation 95 % 12/26/2018 6:00 EDT Heart Rate Monitored 69 bpm Systolic Blood Pressure 152 mmHg HI Diastolic Blood Pressure 76 mmHg Mean Arterial Pressure (MAP)-BMDI 99 Oxygen Saturation 95 % 12/26/2018 5:30 EDT Heart Rate Monitored 72 bpm Systolic Blood Pressure 131 mmHg Diastolic Blood Pressure 72 mmHg Mean Arterial Pressure (MAP)-BMDI 89 Oxygen Saturation 97 % 12/26/2018 5:00 EDT Heart Rate Monitored 70 bpm Systolic Blood Pressure 154 mmHg HI Diastolic Blood Pressure 87 mmHg Mean Arterial Pressure (MAP)-BMDI 96 Oxygen Saturation 95 % 12/26/2018 4:30 EDT Heart Rate Monitored 73 bpm Mean Arterial Pressure (MAP)-BMDI 113 Oxygen Saturation 96 % 12/26/2018 4:00 EDT Temperature Source Axillary Temperature Mode Fahrenheit Temperature, Fahrenheit 98.8 Deg F Clinical Temperature, C 37.1 Deg C Heart Rate Monitored 70 bpm Systolic Blood Pressure 116 mmHg Diastolic Blood Pressure 66 mmHg Mean Arterial Pressure (MAP)-BMDI 84 Oxygen Saturation 89 % LOW 12/26/2018 3:30 EDT Heart Rate Monitored 69 bpm Systolic Blood Pressure 128 mmHg Diastolic Blood Pressure 59 mmHg LOW Mean Arterial Pressure (MAP)-BMDI 81 Oxygen Saturation 90 % LOW 12/26/2018 3:00 EDT Heart Rate Monitored 70 bpm Systolic Blood Pressure 110 mmHg Diastolic Blood Pressure 72 mmHg Mean Arterial Pressure (MAP)-BMDI 85 Oxygen Saturation 90 % LOW 12/26/2018 2:30 EDT Heart Rate Monitored 77 bpm Systolic Blood Pressure 106 mmHg Diastolic Blood Pressure 59 mmHg LOW Mean Arterial Pressure (MAP)-BMDI 73 Oxygen Saturation 91 % LOW 12/26/2018 2:00 EDT Heart Rate Monitored 68 bpm Systolic Blood Pressure 119 mmHg Diastolic Blood Pressure 64 mmHg Mean Arterial Pressure (MAP)-BMDI 79 Oxygen Saturation 92 % LOW 12/26/2018 1:30 EDT Heart Rate Monitored 67 bpm Systolic Blood Pressure 143 mmHg HI Diastolic Blood Pressure 67 mmHg Mean Arterial Pressure (MAP)-BMDI 88 Oxygen Saturation 95 % 12/26/2018 1:00 EDT Heart Rate Monitored 67 bpm Systolic Blood Pressure 130 mmHg Diastolic Blood Pressure 68 mmHg Mean Arterial Pressure (MAP)-BMDI 91 Oxygen Saturation 97 % 12/26/2018 0:30 EDT Heart Rate Monitored 71 bpm Systolic Blood Pressure 145 mmHg HI Diastolic Blood Pressure 65 mmHg Mean Arterial Pressure (MAP)-BMDI 97 Oxygen Saturation 95 % 12/26/2018 0:00 EDT Temperature Source Axillary Temperature Mode Fahrenheit Temperature, Fahrenheit 98.6 Deg F Clinical Temperature, C 37 Deg C Heart Rate Monitored 72 bpm Systolic Blood Pressure 136 mmHg Diastolic Blood Pressure 65 mmHg Mean Arterial Pressure (MAP)-BMDI 85 Oxygen Saturation 95 % 12/25/2018 23:30 EDT Heart Rate Monitored 74 bpm Systolic Blood Pressure 124 mmHg Diastolic Blood Pressure 70 mmHg Mean Arterial Pressure (MAP)-BMDI 88 Oxygen Saturation 94 % 12/25/2018 23:00 EDT Heart Rate Monitored 70 bpm Systolic Blood Pressure 134 mmHg Diastolic Blood Pressure 54 mmHg LOW Mean Arterial Pressure (MAP)-BMDI 82 Oxygen Saturation 95 % 12/25/2018 22:00 EDT Heart Rate Monitored 69 bpm Systolic Blood Pressure 118 mmHg Diastolic Blood Pressure 62 mmHg Mean Arterial Pressure (MAP)-BMDI 81 Oxygen Saturation 97 % 12/25/2018 21:00 EDT Heart Rate Monitored 75 bpm Systolic Blood Pressure 140 mmHg Diastolic Blood Pressure 72 mmHg Mean Arterial Pressure (MAP)-BMDI 89 Oxygen Saturation 95 % 12/25/2018 20:30 EDT Heart Rate Monitored 99 bpm Systolic Blood Pressure 147 mmHg HI Diastolic Blood Pressure 73 mmHg Mean Arterial Pressure (MAP)-BMDI 100 Oxygen Saturation 98 % 12/25/2018 20:00 EDT Temperature Source Axillary Temperature Mode Fahrenheit Temperature, Fahrenheit 98.2 Deg F Clinical Temperature, C 36.8 Deg C Heart Rate Monitored 64 bpm Oxygen Saturation 99 % 12/25/2018 19:30 EDT Heart Rate Monitored 68 bpm Systolic Blood Pressure 155 mmHg HI Diastolic Blood Pressure 75 mmHg Mean Arterial Pressure (MAP)-BMDI 101 Oxygen Saturation 97 % 12/25/2018 19:00 EDT Heart Rate Monitored 63 bpm Systolic Blood Pressure 133 mmHg Diastolic Blood Pressure 79 mmHg Mean Arterial Pressure (MAP)-BMDI 97 Oxygen Saturation 98 % 12/25/2018 18:30 EDT Heart Rate Monitored 72 bpm Systolic Blood Pressure 142 mmHg HI Diastolic Blood Pressure 66 mmHg Mean Arterial Pressure (MAP)-BMDI 97 Oxygen Saturation 94 % 12/25/2018 18:00 EDT Heart Rate Monitored 74 bpm Systolic Blood Pressure 158 mmHg HI Diastolic Blood Pressure 76 mmHg Mean Arterial Pressure (MAP)-BMDI 105 Oxygen Saturation 100 % 12/25/2018 17:30 EDT Heart Rate Monitored 72 bpm Oxygen Saturation 94 % 12/25/2018 17:00 EDT Temperature Source Oral Temperature Mode Fahrenheit Temperature, Fahrenheit 98.2 Deg F Clinical Temperature, C 36.8 Deg C , Measurements from flowsheet : Measurements 12/25/2018 17:18 EDT Height Source Chart Height Entry Format [place] Height/Length, SERBIAN (ft) 6 ft Height/Length SERBIAN 1 Inch CLINICALHEIGHT 185.42 cm [place] Body Weight 79 kg Weight Source Bed scale Weight Entry Format [place] Weight Stateless lb 322 lb CLINICALWEIGHT 146.36 kg Body Surface Area (BSA) 2.64 m2 Body Mass Index 42.6 kg/m2 >HHI , Vitals Signs (last 24 hrs) Last Charted Minimum Maximum Temp 98.8 (DEC 26 04:00) 98.8 (DEC 26 04:00) 98.2 (DEC 25 17:00) Mon HR 71 (DEC 26 06:30) 63 (DEC 25 19:00) 99 (DEC 25 20:30) SBP 136 (DEC 26 06:30) 106 (DEC 26 02:30) H 158 (DEC 25 18:00) DBP 75 (DEC 26 06:30) L 54 (DEC 25 23:00) 87 (DEC 26 05:00) MAP 106 (DEC 26 06:30) 73 (DEC 26 02:30) 113 (DEC 26 04:30) SpO2 97 (DEC 26 08:56) L 89 (DEC 26 04:00) 100 (DEC 25 18:00) General: No acute distress. Appearance: Well nourished. Eye: Normal conjunctiva. Sclera: Both eyes, Within normal limits. HENT: Normocephalic, Oral mucosa is moist. Mouth: pink. Neck: Supple, Non-tender. Respiratory: Respirations are non-labored, Breath sounds are equal. Pattern: Regular. Cardiovascular: Normal rate, Regular rhythm. Gastrointestinal: Soft, Non-tender, Non-distended, Normal bowel sounds, No organomegaly. Abdomen: Liver ( Within normal limits ). Integumentary: Warm, Dry, [place], No rash. Neurologic: Alert, Oriented. Orientation: To person, To place, To time. Psychiatric: Cooperative, Appropriate mood & affect, Normal judgment. Review / Management Results review: Labs (Last [...] 3.4 (DEC 25) . Impression and Plan Anemia. Proceed with urgent EGD in the ICU today for turther evaluation. Risks including that of bleeding, perforation, splenic injury, and missed lesion have been discussed with patient who verbalizes understanding and agrees to proceed. Further recommendations patricia be based on the above findings. documented in this encounter Plan of Treatment Not on file documented as of this encounter Visit Diagnoses Not on filedocumented in this encounter
--- OUTSIDE RECORDS SUMMARY | 2025-05-15 09:15 | XMS_ITS | Encounter Summary ---
Author Organization [employer] ([place], [place], [place], [place]) Address [address] [place] [address] Care Team Providers Care Rand Maker Name Role Phone Unavailable Primary Care Provider Unavailabl e Encounter Details Date Type Department Care Team (Late st Contact Info) Description 12/26/2018 Transcribed Document [facility] [place] [address] [place] [address] ProviderMiah MD [address] [place], [place] [id number] Social History Tobacco Use Types Packs/Day Years Used Date Smoking Tobacco: Never Assessed Sex and Gender Information Value Date Recorded Sex Assigned at Not on file Legal Sex Male 7:06 PM CDT Gender Identity Not on file Sexual Orientation Not on file documented as of this encounter Miscellaneous Notes * Cerner Conversion Note - Historical ProviderMD - 12/26/2018 4:39 PM CDT Event Note Entered On: 12/26/2018 16:43 EDT Performed On: 12/26/2018 16:39 EDT by Pepper Avina RN Event Note Event Date/Time : 12/26/2018 16:41 EDT Description of Event : pt transferred to room 309 from ICU, bedside report recieved from RN, tele in place, vss, pt resting att, agree with previous assessement, family member at bedside, will continue to monitor closely Pepper Avnia RN - 12/26/2018 16:39 EDT documented in this encounter Plan of Treatment Not on file documented as of this encounter Visit Diagnoses Not on filedocumented in this encounter
--- OUTSIDE RECORDS SUMMARY | 2025-05-15 09:15 | XMS_ITS | Encounter Summary ---
Author Organization [employer] ([place], [place], [place], [place]) Address [address] [place] [address] Care Team Providers Care Metal Finisher Name Role Phone Unavailable Primary Care Provider Unavailabl e Encounter Details Date Type Department Care Team (Late st Contact Info) Description 01/06/2019 Transcribed Document [facility] [place] Family Medicine [facility] [place] [address] ProviderMiah MD [address], [place] [phone] Social History Tobacco Use Types Packs/Day Years Used Date Smoking Tobacco: Never Assessed Sex and Gender Information Value Date Recorded Sex Assigned at Not on file Legal Sex Male 7:06 PM CDT Gender Identity Not on file Sexual Orientation Not on file documented as of this encounter Miscellaneous Notes * Cerner Conversion Note - Historical ProviderMD - 01/06/2019 1:23 PM CDT [facility] Summary Primary Physician: KELSEA CHAKRABORTY MD-GAE Finalized Date/Time: 01/06/19 13:48:11 Pt. Name: AISSATOU BAKERPAMELA Willard /Sex: 1965 Male Med Rec #: [id number] Physician: KELSEA CHAKRABORTY MD-GAE Financial #: [id number] Pt. Type: O Room/Bed: [facility] Admit/Disch: 01/06/19 11:40:00 - Institution: [facility] - Case Attendance Entry 1 Entry 2 Entry 3 Case Attendee KELSEA CHAKRABORTY MD-GAE Hamlin, Sherri, RN CAMERON MOTT, ORTHOPEDIC CAST SPECIALIST Role Performed Surgeon/Proceduralist, Petroleum Geology Faculty Member, First ORTHOPEDIC CAST SPECIALIST/Nurse Front End Wheel Loader Operator First Time In 01/06/19 13:12:00 01/06/19 13:12:00 01/06/19 13:12:00 Time Out 01/06/19 13:48:00 01/06/19 13:48:00 01/06/19 13:48:00 Procedure Colonoscopy, Colon Colonoscopy, Colon Colonoscopy, Colon Polypectomy Polypectomy Polypectomy Other Attendee Superficial Wound Closed By: Last Modified By: Donita Boston, Donita Villatoro, Donita Villatoro, RICARDO 01/06/19 13:47:45 01/06/19 13:47:45 01/06/19 13:47:45 Entry 4 Case Attendee OLENA REINOSO Role Performed Scrub, First Time In 01/06/19 13:12:00 Time Out 01/06/19 13:48:00 Procedure Colonoscopy, Colon Polypectomy Other Attendee Superficial Wound Closed By: Last Modified By: Donita Boston RN 01/06/19 13:47:45 [facility] - Case Attendance Audit 01/06/19 13:47:45 Project Surveyor: [email or web address] Modifier: [email or web address] 1 <+> Time Out 1 <*> Procedure Colonoscopy, Colon Polypectomy 2 <+> Time Out 2 <*> Procedure Colonoscopy, Colon Polypectomy 3 <+> Time Out 3 <*> Procedure Colonoscopy, Colon Polypectomy 4 <+> Time Out 4 <*> Procedure Colonoscopy, Colon Polypectomy 01/06/19 13:30:26 Project Surveyor: [email or web address] Modifier: [email or web address] 1 <*> Procedure Colonoscopy 2 <*> Procedure Colonoscopy 3 <*> Procedure Colonoscopy 4 <*> Procedure Colonoscopy 01/06/19 13:23:21 Project Surveyor: [email or web address] Modifier: [email or web address] <+> 1 Procedure 2 <+> Time In 2 <*> Procedure Colonoscopy 3 <+> Time In 3 <*> Procedure Colonoscopy 4 <+> Time In 4 <*> Procedure Colonoscopy [facility] - Case Times Entry 1 Patient In Room Time 01/06/19 13:12:00 Out Room Time 01/06/19 13:48:00 Anesthesia Start Time 01/06/19 13:12:00 Stop Time 01/06/19 13:48:00 Anesthesia Ready 01/06/19 13:12:00 Surgery / Procedure Times Start Time 01/06/19 13:23:00 Stop Time 01/06/19 13:45:00 Last Modified By: Donita Boston RN 01/06/19 13:14:22 [facility] - Case Times Audit 01/06/19 13:45:33 Project Surveyor: [email or web address] Modifier: [email or web address] <+> 1 Out Room Time <+> 1 Stop Time <+> 1 Stop Time 01/06/19 13:23:39 Project Surveyor: [email or web address] Modifier: [email or web address] <+> 1 Start Time [facility] - Cultures and Spec Summary Entry 1 Cultrures and Specimens Specimen Ordered: Yes Specimens Types Pathology Specimen(s) Labeled Pathology and Sent to Last Modified By: Donita Boston RN 01/06/19 13:40:41 General Comments: ASCENDING COLON POLYP,SIGMOID COLON POLYP [facility] - Delays Entry 1 Delay Reason Other Duration 0 Minute(s) Comment NO DELAY Last Modified By: Donita Boston RN 01/06/19 13:14:29 [facility] - Departure from OR Entry 1 Integumentary Assessment Integumentary WDL Assessment WDL Transfer/Handoff Transfer to PACU Phase I Handoff Reported to RHYS MARTINEZ RN Post-op Transport Stretcher/Joycelyn Via Patient Transport CAMERON MOTT CRNA, Accompanied by Donita Boston RN Last Modified By: Donita Boston RN 01/06/19 13:14:42 [facility] - Departure from OR Audit 01/06/19 13:48:04 Project Surveyor: [email or web address] Modifier: [email or web address] <+> 1 Patient Transport Accompanied by [facility] - Endoscopy Details Entry 1 Abdomen Procedure Soft, Non-Tender Assessment Procedure Abdomen 01/06/19 13:14:00 Assessment D/T Radio Frequency Ablation Last Modified By: Donita Boston RN 01/06/19 13:14:46 [facility] - Fire Risk Assessment Entry 1 Fire Info Surgical Site or 0- No Incision Above the Xyphoid Open O2 Source 1- Yes (Mask or Cannula) Available Ignition 1- Yes (ESU, Laser, Light Source) Fire Risk 2 Assessment Score Fire Score Fire Risk Yes Assessment Complete Fire Risk Donita Boston RN Assessment Verified By Fire Risk 01/06/19 13:16:00 Assessment Verified Date/Time Fire Risk High Risk Protocol Yes Implemented Standard Fire Yes Safety Precautions Followed Last Modified By: Donita Boston RN 01/06/19 13:14:59 [facility] [place] [facility] - Fire Risk Assessment Audit 01/06/19 13:16:05 Project Surveyor: JOSE Modifier: JOSE <+> 1 Fire Risk Assessment Verified By <+> 1 Fire Risk Assessment Verified Date/Time [facility] [place] [facility] - General Case Air Conditioning Coil Assembler 1 Case Information OR Endo 02 [facility] [place] Case Level 1 Room Verified Yes Wound Class III - Contaminated Specialty SN Gastroenterology Anesthesia Type MAC ASA Class 2 Diagnosis Preop Diagnosis HX OF COLONIC POLYPS Postop Diagnosis POLYPS,DIVERTICULOSIS,HE MORRHOIDS Last Modified By: Donita Boston RN 01/06/19 13:16:30 [facility] [place] [facility] - General Case Data Audit 01/06/19 13:46:00 Project Surveyor: JOSE Modifier: JOSE <+> 1 Postop Diagnosis [facility] [place] [facility] - Implant Log Entry 1 Type Implant (Synthetic) Implant Log Implant Type Other Implant CLIP II RESOLUTION Identification [id number] Description Implant Quantity 1 Implant [place] Sci:Interv Identification Cardiology Sewer Pipe Sorter Name: Implant [id number] Identification Catalog Number Implant Has an Yes Expiration Date Implant Expiration 09/26/21 Date Tissue Implant Last Modified By: Donita Boston RN 01/06/19 13:47:18 [facility] [place] [facility] - Intraoperative Assessment Entry 1 Valid History / Yes Physical in Chart Preoperative Yes Checklist Reviewed/Evaluated Allergies Reviewed Yes Patient is Latex No Sensitive Level of WDL Consciousness (WDL = Alert, Oriented to Person, Place, and Time) Present Upon ECG monitored Arrival to OR Last Modified By: Donita Boston RN 01/06/19 13:16:41 [facility] [place] [facility] - Intraoperative Equipment Entry 1 Equipment Intraop Monitoring Blood Pressure Arm, left upper Location Pulse Oximeter Hand, right Probe Site Antiembolic Devices Scopes Flexible Endoscopes Colonoscope, Peds Used Scope Serial [id number] Number/Identificatio n Number Photo/Video Documentation Photo Yes Video No Last Modified By: Donita Boston RN 01/06/19 13:17:12 [facility] [place] [facility] - Intraoperative Equipment Audit 01/06/19 13:17:12 Project Surveyor: JOSE Modifier: JOSE <+> 1 Photo <+> 1 Video <+> 1 Blood Pressure Location <+> 1 Pulse Oximeter Probe Site <+> 1 Flexible Endoscopes Used <+> 1 Scope Serial Number/Identification Number [facility] [place] [facility] - Patient Positioning Entry 1 Procedure Colonoscopy, Colon Polypectomy Body Position Lateral, right side up Left Arm Position Resting at side Right Arm Position Resting at side Left Leg Position Other Right Leg Position Other Position Comments Right leg over Left leg uncrossed Feet Uncrossed Yes Pressure Points Yes Checked Positioned By Donita Boston RN Position Verified Positioning Yes Verified by Surgeon Last Modified By: Donita Boston RN 01/06/19 13:17:24 [facility] - Patient Positioning Audit 01/06/19 13:30:26 Project Surveyor: JOSE Modifier: [email or web address] 1 <*> Procedure Colonoscopy [facility] - Sign In Entry 1 Patient, Site, Yes Procedure Identified Surgical Consent Yes Confirmed Relevant Surgical Yes Documents Available Surgical Site N/A Marked by person performing procedure Allergies No Airway Hypothermia Risk No Warming Measures Yes Taken Last Modified By: Donita Boston RN 01/06/19 13:17:54 [facility] - Sign Out Entry 1 RN Confirmation Surgical Yes Procedure(s) Identified Instrument, Sponge N/A and Sharps Counts Correct/Documented Equipment Problems N/A Documented Specimen Labeled Yes Correctly Urinary Catheter N/A Documented in IView Safety Checklist Yes Elements Complete? RN Sign Out Donita Boston RN Signature RN Sign Out 01/06/19 13:47:00 Signature Date/Time Plan of Care Outcome - Fire Risk OUTCOME STATEMENT: Goal met Patient is free from injury related to surgical fire Plan of Care Outcome - Pt Positioning OUTCOME STATEMENT: Goal met Absence of signs and symptoms of positioning injury. Plan of Care Outcome - Skin Prep OUTCOME STATEMENT: Goal met Intraoperative care is consistent with measures to prevent infection Plan of Care Outcome - Xray/Images OUTCOME STATEMENT: N/A Absence of observable signs or symptoms of radiation injury Plan of Care Outcome - Counts OUTCOME STATEMENT: N/A Absence of signs and symptoms of injury related to extraneous objects Last Modified By: Donita Boston RN 01/06/19 13:47:35 [facility] - Surgical Procedures Entry 1 Entry 2 Procedure Colonoscopy Colon Polypectomy Modifiers Additional Procedure Description Primary Procedure Yes No Primary Surgeon KELSEA CHAKRABORTY MD-GAE HAAS, LAURIE, MD-GAE Start 01/06/19 13:23:00 01/06/19 13:23:00 Stop 01/06/19 13:45:00 01/06/19 13:45:00 Physician States 01/06/19 13:26:00 01/06/19 13:26:00 Cecum Reached Anesthesia Type MAC MAC Specialty SN Gastroenterology SN Gastroenterology Wound Class III - Contaminated III - Contaminated Last Modified By: Donita Boston RN Hamlin, Sherri, RN 01/06/19 13:28:03 01/06/19 13:30:23 [facility] [place] [facility] - Surgical Procedures Audit 01/06/19 13:47:39 Project Surveyor: [email or web address] Modifier: [email or web address] <+> 1 Stop <+> 2 Stop 01/06/19 13:30:23 Project Surveyor: [email or web address] Modifier: [email or web address] <+> 2 Procedure <+> 2 Primary Procedure <+> 2 Primary Surgeon <+> 2 Specialty <+> 2 Start <+> 2 Wound Class <+> 2 Anesthesia Type <+> 2 Physician States Cecum Reached 01/06/19 13:28:03 Project Surveyor: [email or web address] Modifier: [email or web address] 1 <*> Procedure Colonoscopy 1 <+> Start 1 <+> Physician States Cecum Reached [facility] [place] [facility] - Time Out Entry 1 Procedure to be Colonoscopy, Colon Performed Polypectomy Time Out Time Out Pause Time 01/06/19 13:22:00 All activity Yes suspended (unless life threatening emergency) Team Verbally Correct patient Confirms Information identity, Correct side and site are marked, Consent form is present and accurate, Agreement on the procedure to be done, Correct patient position Antibiotic N/A Prophylaxis Administered Or In Progress Within the Last 60 Minutes Beta Taisha N/A Administered Venous N/A Thromboembolism Prophylaxis Required Anticipated Critical Events Surgeon None expected Last Modified By: Donita Boston RN 01/06/19 13:30:26 [facility] - Time Out Audit 01/06/19 13:30:26 Project Surveyor: JOSE Modifier: [email or web address] 1 <*> Procedure to be Performed Colonoscopy Case Comments <None> Finalized By: Donita Boston, RICARDO Document Signatures Signed By: Donita Boston RN 01/06/19 13:48 documented in this encounter Plan of Treatment Not on file documented as of this encounter Visit Diagnoses Not on filedocumented in this encounter
--- OUTSIDE RECORDS SUMMARY | 2025-05-15 09:15 | XMS_ITS | Encounter Summary ---
Author Organization [employer] ([place], [place], [place], [place]) Address [address] [place] [address] Care Team Providers Care Bead Cutter Name Role Phone Unavailable Primary Care Provider Unavailabl e Encounter Details Date Type Department Care Team (Late st Contact Info) Description 12/26/2018 Transcribed Document [facility] [place] [facility] [place] [address] ProviderMiah MD [address] [place], [place] [phone] Social History Tobacco Use Types Packs/Day Years Used Date Smoking Tobacco: Never Assessed Sex and Gender Information Value Date Recorded Sex Assigned at Not on file Legal Sex Male 7:06 PM CDT Gender Identity Not on file Sexual Orientation Not on file documented as of this encounter Miscellaneous Notes * Cerner Conversion Note - Historical ProviderMD - 12/26/2018 12:06 PM CDT [facility] Summary Primary Physician: KELSEA CHAKRABORTY MD-GAE Finalized Date/Time: 12/26/18 12:43:29 Pt. Name: EDMAR BAKER D.O.B./Sex: 1965 Male Med Rec #: [id number] Physician: ENRIQUE MACHADO MD Financial #: [id number] Pt. Type: I Room/Bed: [facility]/ Admit/Disch: 12/25/18 17:15:00 - Institution: [facility] - Case Attendance Entry 1 Entry 2 Entry 3 Case Attendee KELSEA CHAKRABORTY MD-FRANCINE VAZQUEZ, RN OLENA REINOSO Role Performed Surgeon/Proceduralist, Mine Administrator Supervisor, First Scrub, First First Time In 12/26/18 11:45:00 12/26/18 11:45:00 03/31/19 11:45:00 Time Out 12/26/18 12:13:00 12/26/18 12:13:00 12/26/18 12:13:00 Procedure Esophagogastroduodenosco Esophagogastroduodenosco Esophagogastroduodenosco py, Gastric Biopsy py, Gastric Biopsy py, Gastric Biopsy Other Attendee Superficial Wound Closed By: Last Modified By: FRANCINE GILL, RN FRANCINE GILL, RN FRANCINE GILL, RN 12/26/18 12:11:14 12/26/18 12:11:14 12/26/18 12:11:14 [facility] - Case Attendance Audit 12/26/18 12:11:14 Flame Cutting Machine Operator Helper: TIERAMIKE Modifier: TIERAMIKE 1 <+> Time Out 1 <*> Procedure Esophagogastroduodenoscopy, Gastric Biopsy 2 <+> Time Out 2 <*> Procedure Esophagogastroduodenoscopy, Gastric Biopsy 3 <+> Time Out 3 <*> Procedure Esophagogastroduodenoscopy, Gastric Biopsy 12/26/18 12:08:28 Flame Cutting Machine Operator Helper: ZOË Modifier: ZOË 1 <*> Procedure Esophagogastroduodenoscopy 2 <*> Procedure Esophagogastroduodenoscopy 3 <*> Procedure Esophagogastroduodenoscopy 12/26/18 11:51:57 Flame Cutting Machine Operator Helper: ZOË Modifier: TIERASROGELIO 1 <*> Procedure Esophagogastroduodenoscopy 2 <+> Time In 2 <*> Procedure Esophagogastroduodenoscopy 3 <+> Time In 3 <*> Procedure Esophagogastroduodenoscopy [facility] - Case Times Entry 1 Patient In Room Time 12/26/18 11:45:00 Out Room Time 12/26/18 12:13:00 Anesthesia Start Time 12/26/18 11:52:00 Stop Time 12/26/18 12:13:00 Anesthesia Ready 12/26/18 11:52:00 Surgery / Procedure Times Start Time 12/26/18 12:06:00 Stop Time 12/26/18 12:11:00 Last Modified By: FRANCINE GILL RN 12/26/18 12:11:10 [facility] - Case Times Audit 12/26/18 12:11:10 Flame Cutting Machine Operator Helper: ZOË Modifier: [email or web address] <+> 1 Out Room Time <+> 1 Stop Time <+> 1 Stop Time 12/26/18 12:08:13 Flame Cutting Machine Operator Helper: ZOË Modifier: WOODSJA <+> 1 Start Time 12/26/18 11:52:02 Flame Cutting Machine Operator Helper: ZOË Modifier: TIERASROGELIO <+> 1 Start Time <+> 1 Anesthesia Ready [facility] - Cultures and Spec Summary Entry 1 Cultrures and Specimens Specimen Ordered: Yes Last Modified By: FRANCINE GILL RN 12/26/18 12:08:36 [facility] - Delays Entry 1 Delay Reason Other Duration 0 Minute(s) Comment NO DELAY Last Modified By: FRANCINE GILL RN 12/26/18 11:48:29 [facility] - Departure from OR Entry 1 Integumentary Assessment Integumentary WDL Assessment WDL Transfer/Handoff Transfer to PACU Phase I Post-op Transport Stretcher/Gurney Via Patient Transport FRANCINE GILL RN Accompanied by Last Modified By: FRANCINE GILL RN 12/26/18 11:48:32 [facility] - Endoscopy Details Entry 1 Abdomen Procedure Soft, Non-Tender Assessment Procedure Abdomen 12/26/18 12:11:00 Assessment D/T Radio Frequency Ablation Last Modified By: FRANCINE GILL RN 12/26/18 12:11:29 [facility] - Endoscopy Details Audit 12/26/18 12:11:29 Flame Cutting Machine Operator Helper: ZOË Modifier: ZOË <+> 1 Procedure Abdomen Assessment D/T [facility] - Fire Risk Assessment Entry 1 Fire Info Surgical Site or 1- Yes Incision Above the Xyphoid Open O2 Source 1- Yes (Mask or Cannula) Available Ignition 1- Yes (ESU, Laser, Light Source) Fire Risk 3 Assessment Score Fire Score Fire Risk Yes Assessment Complete Fire Risk FRANCINE GILL food and beverage analyst Verified By Fire Risk 12/26/18 11:52:00 Assessment Verified Date/Time Fire Risk High Risk Protocol Yes Implemented Standard Fire Yes Safety Precautions Followed Last Modified By: FRANCINE GILL RN 12/26/18 11:52:17 [facility] - Fire Risk Assessment Audit 12/26/18 11:52:17 Flame Cutting Machine Operator Helper: ZOË Modifier: TIERASJA <+> 1 Fire Risk Assessment Complete 12/26/18 11:52:06 Flame Cutting Machine Operator Helper: ZOË Modifier: WOODSJA <+> 1 Fire Risk Assessment Verified Date/Time [facility] - General Case Student Career Development Specialist 1 Case Information OR Endo 01 [facility] Case Level 1 Room Verified Yes Wound Class II - Clean-Contaminated Specialty SN Gastroenterology Anesthesia Type Moderate Sedation ASA Class 3 Diagnosis Preop Diagnosis anemia Postop Same As Preop No Postop Diagnosis gastritis Last Modified By: FRANCINE GILL RN 12/26/18 12:10:24 [facility] - General Case Data Audit 12/26/18 12:10:24 Flame Cutting Machine Operator Helper: ZOË Modifier: WOODSJA <+> 1 Postop Diagnosis 12/26/18 11:51:43 Flame Cutting Machine Operator Helper: ZOË Modifier: WOODSJA <+> 1 Specialty <+> 1 ASA Class <+> 1 Anesthesia Type <+> 1 Postop Same As Preop <+> 1 Preop Diagnosis <+> 1 Room Verified [facility] - Intraoperative Assessment Entry 1 Valid History / Yes Physical in Chart Preoperative Yes Checklist Reviewed/Evaluated Patient is Latex No Sensitive Level of WDL Consciousness (WDL = Alert, Oriented to Person, Place, and Time) Present Upon ECG monitored Arrival to OR Last Modified By: FRANCINE GILL RN 12/26/18 11:51:20 [facility] - Intraoperative Equipment Entry 1 Equipment Intraop Monitoring Electrocardiogram Three lead placement (ECG) Electrode Placement Blood Pressure Arm, left upper Location Pulse Oximeter Hand, right Probe Site Antiembolic Devices Scopes Flexible Endoscopes Gastroscope Used Scope Serial [id number] Number/Identificatio n Number Photo/Video Documentation Photo Yes Video No Last Modified By: FRANCINE GILL RN 12/26/18 11:51:18 [facility] - Patient Positioning Entry 1 Procedure Esophagogastroduodenosco py, Gastric Biopsy Body Position Lateral, right side up Left Arm Position Resting at side Right Arm Position Resting at side Left Leg Position Other Right Leg Position Other Position Comments Right leg over left leg uncrossed Feet Uncrossed Yes Pressure Points Yes Checked Positioned By FRANCINE GILL RN Position Verified Positioning Yes Verified by Surgeon Last Modified By: FRANCINE GILL RN 12/26/18 12:08:30 [facility] - Patient Positioning Audit 12/26/18 12:08:30 Flame Cutting Machine Operator Helper: ZOË Modifier: TIERASROGELIO 1 <*> Procedure Esophagogastroduodenoscopy [facility] - Sign In Entry 1 Patient, Site, Yes Procedure Identified Surgical Consent Yes Confirmed Surgical Site N/A Marked by person performing procedure Airway Hypothermia Risk No Warming Measures No Taken Last Modified By: FRANCINE GILL RN 12/26/18 11:51:55 [facility] - Sign Out Entry 1 RN Confirmation Surgical Yes Procedure(s) Identified Instrument, Sponge N/A and Sharps Counts Correct/Documented Equipment Problems N/A Documented Specimen Labeled Yes Correctly Urinary Catheter N/A Documented in IView Safety Checklist Yes Elements Complete? RN Sign Out FRANCINE GILL RN Signature RN Sign Out 12/26/18 12:10:00 Signature Date/Time Plan of Care Outcome - [...] related to extraneous objects Last Modified By: FRANCINE GILL RN 12/26/18 12:10:54 [facility] - Sign Out Audit 12/26/18 12:10:54 Flame Cutting Machine Operator Helper: ZOË Modifier: JAIROJA <+> 1 RN Sign Out Signature Date/Time 12/26/18 12:10:39 Flame Cutting Machine Operator Helper: ZOË Modifier: ZOË 1 <*> Urinary Catheter Documented in IView N/A 12/26/18 12:10:34 Flame Cutting Machine Operator Helper: ZOË Modifier: TIERASJA <+> 1 Urinary Catheter Documented in IView [facility] - Surgical Procedures Entry 1 Entry 2 Procedure Esophagogastroduodenosco Gastric Biopsy py Modifiers Additional Procedure Description Primary Procedure Yes No Primary Surgeon KELSEA CHAKRABORTY MD-GAE HAAS, LAURIE, MD-GAE Start 12/26/18 12:06:00 12/26/18 12:06:00 Stop 12/26/18 12:11:00 12/26/18 12:11:00 Physician States Cecum Reached Anesthesia Type MAC MAC Specialty SN Gastroenterology SN Gastroenterology Wound Class II - Clean-Contaminated II - Clean-Contaminated Last Modified By: FRANCINE GILL RN WOODS, JULIE A, RN 12/26/18 12:11:20 12/26/18 12:11:20 [facility] - Surgical Procedures Audit 12/26/18 12:11:20 Flame Cutting Machine Operator Helper: ZOË Modifier: ZOË <+> 1 Stop <+> 2 Stop 12/26/18 12:08:26 Flame Cutting Machine Operator Helper: ZOË Modifier: ZOË <+> 1 Start <+> 2 Procedure <+> 2 Primary Procedure <+> 2 Primary Surgeon <+> 2 Specialty <+> 2 Start <+> 2 Wound Class <+> 2 Anesthesia Type 12/26/18 11:57:31 Flame Cutting Machine Operator Helper: ZOË Modifier: ZOË 1 <*> Procedure Esophagogastroduodenoscopy 1 <+> Specialty [facility] [place] [facility] - Time Out Entry 1 Procedure to be Esophagogastroduodenosco Performed py, Gastric Biopsy Time Out Time Out Pause Time 12/26/18 11:48:00 All activity Yes suspended (unless life threatening emergency) Team Verbally Correct patient Confirms Information identity, Correct side and site are marked, Consent form is present and accurate, Agreement on the procedure to be done, Correct patient position, Relevant images/results properly labeled/appropriately displayed Antibiotic N/A Prophylaxis Administered Or In Progress Within the Last 60 Minutes Beta Taisha N/A Administered Venous N/A Thromboembolism Prophylaxis Required Anticipated Critical Events Surgeon None expected Last Modified By: FRANCINE GILL RN 12/26/18 12:08:30 [facility] - Time Out Audit 12/26/18 12:08:30 Flame Cutting Machine Operator Helper: ZOË Modifier: ZOË 1 <*> Procedure to be Performed Esophagogastroduodenoscopy Case Comments <None> Finalized By: FRANCINE GILL, RN Document Signatures Signed By: FRANCINE GILL RN 12/26/18 12:11 FRANCINE GILL RN 12/26/18 12:43 Unfinalized History Date/Time Username Reason for Unfinalizing Freetext Reason for Unfinalizing 12/26/18 12:43 ZOË Modify Pick List Electronically signed by Jeanne [facility] Conversion Small Arms Repairer Cerner at 01/12/2023 6:20 PM CDT documented in this encounter Plan of Treatment Not on file documented as of this encounter Visit Diagnoses Not on filedocumented in this encounter
--- OUTSIDE RECORDS SUMMARY | 2025-05-15 09:15 | XMS_ITS | Encounter Summary ---
Author Organization [employer] ([place], [place], [place], [place]) Address [address] [place] [address] Care Team Providers Care Wet Roaster Name Role Phone Unavailable Primary Care Provider Unavailabl e Encounter Details Date Type Department Care Team (Late st Contact Info) Description 12/27/2018 Transcribed Document [facility] [place] Count [facility] the [facility] [address] ProviderMiah MD [address] [place] [address] Social History Tobacco Use Types Packs/Day Years Used Date Smoking Tobacco: Never Assessed Sex and Gender Information Value Date Recorded Sex Assigned at Not on file Legal Sex Male 7:06 PM CDT Gender Identity Not on file Sexual Orientation Not on file documented as of this encounter Miscellaneous Notes * Cerner Conversion Note - Historical ProviderMD - 12/27/2018 11:56 AM CDT Nursing Discharge Summary Entered On: 12/27/2018 11:56 EDT Performed On: 12/27/2018 11:56 EDT by Melissa Lincoln RN Discharge Documentation Patient Disposition, General : Discharge Discharge To : Home with ambulatory/outpatient follow-up Mode Of Departure, General Discharge : Private vehicle IV Discontinued : Yes Medications Given to Patient : No Pt's Own Supply of Medications Returned : No Prescriptions Given to Patient : Yes Discharge Instructions Reviewed With, Opportunity For Questions Given : Patient Patient Education Completed : Yes Number of Prescriptions Given : 4 Teaching Method : Explanation, Printed materials Teaching Evaluation : Verbalizes understanding Melissa Lincoln RN - 12/27/2018 11:56 EDT documented in this encounter Plan of Treatment Not on file documented as of this encounter Visit Diagnoses Not on filedocumented in this encounter
--- OUTSIDE RECORDS SUMMARY | 2025-05-15 09:15 | XMS_ITS | Encounter Summary ---
Author Organization [employer] ([place], [place], [place], [place]) Address [address] [place] [address] Care Team Providers Care Transportation Operations Manager Name Role Phone Unavailable Primary Care Provider Unavailabl e Encounter Details Date Type Department Care Team (Late st Contact Info) Description 12/25/2018 Transcribed Document [facility] [place] Medicine [facility]ly [facility] [place] [address] ProviderMiah MD [address] [place] [id number] Social History Tobacco Use Types Packs/Day Years Used Date Smoking Tobacco: Never Assessed Sex and Gender Information Value Date Recorded Sex Assigned at Not on file Legal Sex Male 7:06 PM CDT Gender Identity Not on file Sexual Orientation Not on file documented as of this encounter Miscellaneous Notes * Cerner Conversion Note - Historical ProviderMD - 12/25/2018 8:07 PM CDT Pain Assessment Entered On: 12/27/2018 0:16 EDT Performed On: 12/27/2018 0:13 EDT by June Torres RN Intervention Information: oxyCODONE Performed by June Torres RN on 12/26/2018 23:13:00 EDT oxyCODONE,5mg Oral,Pain (Severe 7-10) Pain Assessment Pain Assessment : Follow-up assessment Pain Scale Goal : 3 Pain Scale Used : 0-10 Scale June Torres RN - 12/27/2018 0:15 EDT Pain Scale Intensity : 1 June Torres RN - 12/27/2018 0:15 EDT Image 4 - Images currently included in the form version of this document have not been included in the text rendition version of the form. Electronically signed by Brent Angel Conversion Agricultural Labor Camp Manager Cerner at 01/12/2023 6:26 PM CDT documented in this encounter Plan of Treatment Not on file documented as of this encounter Visit Diagnoses Not on filedocumented in this encounter
--- OUTSIDE RECORDS SUMMARY | 2025-05-15 09:15 | XMS_ITS | Encounter Summary ---
Author Organization [employer] ([place], [place], [place], [place]) Address [address] [place] [address] Care Team Providers Care Supervisor Type Disk Quality Control Name Role Phone Unavailable Primary Care Provider Unavailabl e Encounter Details Date Type Department Care Team (Late st Contact Info) Description 12/25/2018 Transcribed Document [facility] [place] [facility] [place] [address] ProviderMiah MD [address] [place] [id number] Social History Tobacco Use Types Packs/Day Years Used Date Smoking Tobacco: Never Assessed Sex and Gender Information Value Date Recorded Sex Assigned at Not on file Legal Sex Male 7:06 PM CDT Gender Identity Not on file Sexual Orientation Not on file documented as of this encounter Miscellaneous Notes * Cerner Conversion Note - Historical ProviderMD - 12/25/2018 5:32 PM CDT Pain Assessment Entered On: 12/26/2018 6:14 EDT Performed On: 12/26/2018 1:50 EDT by Radha Wiley Rn Intervention Information: acetaminophen Performed by Radha Wiley Rn on 12/26/2018 00:50:00 EDT acetaminophen,650mg Oral,Pain (Mild 1-3) Pain Assessment Pain Assessment : Follow-up assessment Pain Scale Goal : 3 Pain Scale Used : 0-10 Scale Radha Wiley Rn - 12/26/2018 6:13 EDT Pain Scale Intensity : 4 Radha Wiley Rn - 12/26/2018 6:13 EDT Image 4 - Images currently included in the form version of this document have not been included in the text rendition version of the form. Electronically signed by Brent Angel Conversion Air Control Electronics Operator Cerner at 01/12/2023 6:21 PM CDT documented in this encounter Plan of Treatment Not on file documented as of this encounter Visit Diagnoses Not on filedocumented in this encounter
--- OUTSIDE RECORDS SUMMARY | 2025-05-15 09:15 | XMS_ITS | Encounter Summary ---
Author Organization [employer] ([place], [place], [place], [place]) Address [address] [place] [address] Care Team Providers Care Idea Man Name Role Phone Unavailable Primary Care Provider Unavailabl e Encounter Details Date Type Department Care Team (Late st Contact Info) Description 12/26/2018 Transcribed Document [facility] [place] Family Medicine [address] [place] [address] ProviderMiah MD [address] [place] [address] Social History Tobacco Use Types Packs/Day Years Used Date Smoking Tobacco: Never Assessed Sex and Gender Information Value Date Recorded Sex Assigned at Not on file Legal Sex Male 7:06 PM CDT Gender Identity Not on file Sexual Orientation Not on file documented as of this encounter Miscellaneous Notes * Cerner Conversion Note - Historical ProviderMD - 12/26/2018 2:00 AM CDT Dewer Details Entered On: 12/26/2018 6:14 EDT Performed On: 12/26/2018 2:00 EDT by Radha Wiley, Rn Order Details Transport Mode Order Detail : Wheelchair Isolation Precautions Order Detail : Standard Precautions Order Detail : N/A IV Order Detail : 1 Oxygen Order Detail : 0 Nurse Collect Order Detail : 1 Lift/Transfer : Moderate assist Central Line Order Detail : No Room Service : Appropriate Arterial Line : No Radha Wiley, Rn - 12/26/2018 6:14 EDT documented in this encounter Plan of Treatment Not on file documented as of this encounter Visit Diagnoses Not on filedocumented in this encounter
--- OUTSIDE RECORDS SUMMARY | 2025-05-15 09:16 | XMS_ITS | Encounter Summary ---
Author Organization [employer] ([place], [place], [place], [place]) Address [address] [place] [address] Care Team Providers Care Camera Assembler Name Role Phone Unavailable Primary Care Provider Unavailabl e Encounter Details Date Type Department Care Team (Late st Contact Info) Description 12/27/2018 Transcribed Document [facility] [place] [facility] [place] [address] ProviderMiah MD [address], [place] [id number] Social History Tobacco Use Types Packs/Day Years Used Date Smoking Tobacco: Never Assessed Sex and Gender Information Value Date Recorded Sex Assigned at Not on file Legal Sex Male 7:06 PM CDT Gender Identity Not on file Sexual Orientation Not on file documented as of this encounter Miscellaneous Notes * Cerner Conversion Note - Historical ProviderMD - 12/27/2018 10:31 AM CDT Care Management Assessment/Plan Entered On: 12/27/2018 10:32 EDT Performed On: 12/27/2018 10:31 EDT by Karla Bullard RN Care Management Note Anticipated Discharge Date : 12/28/2018 21:00 EDT Care Management Note : Discharge orders placed by Dr. Herrmann, cleared by hemoc after Iron transfusion today 12/27/18. Still awaiting clearence from other specialties. Home plan when cleared by providers...arh Care Management Note Report : Karla Bullard RN - 12/26/18 09:30:53 Chart review. Patient admitted with GI bleed from outlying facility. Low blood counts on admission, has had blood transfusions. Nephrology and gastroenterology consulted. Per notes patient was independent in all areas prior to admisison. LOW readmisison score. Home plan...arh Documentation Status Complete : Yes Karla Bullard, RN - 12/27/2018 10:31 EDT Final Discharge Disposition Note-CM Discharge To Care Management : Home/Residential/[facility] or Self Care -01 Karla Bullard, RN - 12/27/2018 10:31 EDT documented in this encounter Plan of Treatment Not on file documented as of this encounter Visit Diagnoses Not on filedocumented in this encounter
--- OUTSIDE RECORDS SUMMARY | 2025-05-15 09:16 | XMS_ITS | Encounter Summary ---
Author Organization [employer] ([place], [place], [place], [place]) Address [address] [place] [address] Care Team Providers Care Boring Machine Feeder Name Role Phone Unavailable Primary Care Provider Unavailabl e Encounter Details Date Type Department Care Team (Late st Contact Info) Description 01/06/2019 Transcribed Document [facility] [place] [facility] [place] [address] ProviderMiah MD [address] [place] [id number] Social History Tobacco Use Types Packs/Day Years Used Date Smoking Tobacco: Never Assessed Sex and Gender Information Value Date Recorded Sex Assigned at Not on file Legal Sex Male 7:06 PM CDT Gender Identity Not on file Sexual Orientation Not on file documented as of this encounter Miscellaneous Notes * Cerner Conversion Note - Historical ProviderMD - 01/06/2019 12:53 PM CDT Patient: EDMAR BAKER Age: 53 years Sex: Male : 1965 Associated Diagnoses: None Author: CRUZ DUKES PA Basic Information Source of history: Self. Referral source: MARIE LITTLE APRN. Chief Complaint History of Anemia, BRBPR. History of Present Illness Patient had a presyncopal event and went to [place] ER end of November 2018. He was transferred to [facility]. He was seen by GI on 12/26. . Hbg was 5.5, he was hypotensive . Creatinine level was 2.2. Pt reported he felt weak and tired since [place]. . He has noted BRBPR for about one month. Has decreased appetite. He was transfused with 5 untis of blood in total. He had an Iron trasnfusion this Thursday, Hgb then was 9.7. EGD performed in ICU: Mild gastritis found. No indication of upper GI bleed. Pathology report: Gastric biopsy - gastric antral and fundic type mucosa with mild chronic gastritis. Positive for intestinal metaplasia. No dysplasia identified, Positive for numerous H. Pylori like organisms. Pt has lost about 5 pounds. Pt takes Ibuprofen occasionally. Pt treated with Omeclamox. Last colon 2013 Multiple polyps, Diverticulosis, Internal hemorrhoids Path Colon transverse- Tubular adenoma, Descending colon- Tubular adenoma, Sigmoid- serrated adenoma All negative for high grade dysplasia and malignancy. Pt denies change in bowel habits. No family history of colon cancer. Histories Past Medical History: Active Hypertension (6662949139) GERD (gastroesophageal reflux disease) (293314195) Bipolar disorder, unspecified (57061732) Arthritis (6042041) Peripheral neuropathy (060169920) Anemia (831473586) Rectal bleeding (913233345) Recent Syncopal episode (644613404) Procedure history: Appendectomy (510028470). Hemorrhoidectomy (99824186). Right total knee replacement. Colonoscopy (435531721). Social History Social & Psychosocial Habits Alcohol 01/06/2019 Alcohol Use History, Social Habits No Nutrition/Health 01/06/2019 Caffeine intake amount: coffee x 2-3 cups/day Substance Abuse 01/06/2019 Recreational Drug Use History Yes Recreational Drug Type Marijuana/Hashish Years of Recreational Drug Use whenever I can get it for the past 40 years Recreational Drug Last Used 2 days ago Tobacco 01/06/2019 Smoking Status Former smoker, quit more Years of Tobacco Use 16 Packs/Tins Daily 1 Month Tobacco Last Used Quit 1986 . Family History: Grandfather with history of stomach cancer. Health Status Allergies: Allergic Reactions (All) No Known Allergies, Allergies (1) Active Reaction No Known Allergies None Documented Current medications: (Selected) Inpatient Medications Ordered Feraheme + Dextrose 5% in Water intravenous solution 150 mL: 510 mg, 17 mL, 334 mL/Hr, IV Piggyback, 1-Time Normal Saline 1,000 mL: 125 mL/Hr, IntraVENous Prescriptions Prescribed Colace 100 mg oral capsule: 1 Cap, Oral, BID, PRN: as needed for constipation, 60 Cap, 0 Refill(s) MiraLax oral powder for reconstitution: 17 Gram, Oral, Daily, for 14 Day(s), 527 Gram, 0 Refill(s) Vitamin C 500 mg oral tablet: 1 Tab, Oral, Daily, 30 Tab, 0 Refill(s) ferrous sulfate 325 mg (65 mg elemental iron) oral delayed release tablet: 1 Tab, Oral, BID, 60 Tab, 0 Refill(s) pantoprazole 40 mg oral delayed release tablet: 1 Tab, Oral, BID, 60 Tab, 0 Refill(s) Documented Medications Documented amLODIPine 5 mg oral [...] oral tablet: Tab, Oral, Daily, 0 Refill(s) traMADol 50 mg oral tablet: Tab, Oral, Q4H, 0 Refill(s), Medications (1) Active Scheduled: (0) Continuous: (1) NaCl 0.9% 1,000 mL 1,000 mL, IntraVENous, 125 mL/Hr PRN: (0) Problem list: All Problems Anemia / SNOMED CT 823537572 / Confirmed Arthritis / SNOMED CT 2989963 / Confirmed Bipolar disorder, unspecified / SNOMED CT 75794556 / Confirmed GERD (gastroesophageal reflux disease) / SNOMED CT 762682286 / Confirmed History of obstructive sleep apnea / IMO 62011025 / Confirmed Hypertension / SNOMED CT 8014494384 / Confirmed Peripheral neuropathy / SNOMED CT 094111463 / Confirmed Recent Syncopal episode / SNOMED CT 024126184 / Confirmed Rectal bleeding / SNOMED CT 101077100 / Confirmed, Active Problems (9) Anemia Arthritis Bipolar disorder, unspecified GERD (gastroesophageal reflux disease) History of obstructive sleep apnea Hypertension Peripheral neuropathy Recent Syncopal episode Rectal bleeding Review of Systems Constitutional: No fever, No chills, No weight gain, No weight loss. Eye: No recent visual problem, No blurring. Ear/Nose/Mouth/Throat: No dysphagia, No epistaxis, No hoarse voice, No sore throat. Respiratory: No shortness of breath, No cough, No hemoptysis. Cardiovascular: No chest pain, No palpitations, No claudication. Gastrointestinal Negative other than HPI. Genitourinary: No dysuria, No hematuria. Hematology/Lymphatics: No bruising tendency, No bleeding tendency. Endocrine: No excessive thirst, No cold intolerance, No heat intolerance. Musculoskeletal: No joint pain, No muscle pain, No gait disturbance, No joint redness. Integumentary: No rash, No pruritus. Neurologic: No confusion, No dizziness, No headache, No seizure. Psychiatric: No anxiety, No depression. the rest of the 10 system review is negative Physical Examination VS/Measurements Vitals Signs (last 24 hrs) Last Charted Minimum Maximum Temp 98.5 (JAN 06:) 98.5 (JAN 06:) 98.5 (JAN 06:) Mon HR 69 (JAN 06:05) 64 (JAN 06 12:) 81 (JAN 06 13:50) Resp Rate 18 (JAN 06:) 18 (JAN 06:50) 20 (JAN 06:) SBP H 153 (JAN 06:05) 112 (JAN 06 13:50) H 155 (JAN 06 12:00) DBP 72 (JAN 06:) L 52 (JAN 06 13:55) 88 (JAN 06:) SpO2 95 (JAN 06:) L 92 (JAN 06:50) 96 (JAN 06:) General: No acute distress. Appearance: Well nourished. Eye: Pupils are equal, round and reactive to light, Extraocular movements are intact, Normal conjunctiva. Sclera: Both eyes, Within normal limits. HENT: Normocephalic, Normal hearing, Oral mucosa is moist. Nose: Both nostrils, Within normal limits, Patent. Mouth: pink. Neck: Supple, Non-tender, No carotid bruit, No jugular venous distention. Respiratory: Lungs are clear to auscultation, Respirations are non-labored, Breath sounds are equal. Pattern: Regular. Cardiovascular: Normal rate, Regular rhythm, No murmur, No gallop, No edema. Arterial pulses: Bilateral, Dorsalis pedis, Within normal limits. Gastrointestinal: Soft, Non-tender, Non-distended, Normal bowel sounds, No organomegaly. Abdomen: Liver ( Within normal limits ). Lymphatics: Lymphatic exam: Bilateral, Cervical chain, Inguinal, Within normal limits. Musculoskeletal: Normal range of motion, Normal strength, No tenderness, No deformity, Normal gait. Integumentary: Warm, Dry, [place], No rash. Integumentary exam: Face, Chest, Arm, Abdomen, Leg. Neurologic: Alert, Oriented, No focal deficits. Orientation: To person, To place, To time. Psychiatric: Cooperative, Appropriate mood & affect, Normal judgment. Review / Management Results review: No qualifying data available. Impression and Plan Colon for history of anemia and BRBPR. . Proceed with colonoscopy. Risks including that of bleeding, perforation, splenic injury, and missed lesion have been discussed with patient who verbalizes understanding and agrees to proceed. Further recommendations patricia be based on the above findings. Scribed by Cruz Mac for Dr. Hannah Soler. documented in this encounter Plan of Treatment Not on file documented as of this encounter Visit Diagnoses Not on filedocumented in this encounter
--- OUTSIDE RECORDS SUMMARY | 2025-05-15 09:16 | XMS_ITS | Encounter Summary ---
Author Organization [facility] Address [address] [place] [address] Care Team Providers Care Vehicle Modification Technician Name Role Phone Campbell Ko MD Primary Care Provider Encounter Details Date Type Department Care Team (Late st Contact Info) Description 03/30/2025 Orders Only [facility] [address] [phone] Nancy Calderon Renal insufficiency (Primary Dx); Vitamin D insufficiency Social History Tobacco Use Types Packs/Day Years Used Date Smoking Tobacco: Never Assessed Sex and Gender Information Value Date Recorded Sex Assigned at Not on file Legal Sex Male 8:40 PM EDT Gender Identity Not on file Sexual Orientation Not on file documented as of this encounter Plan of Treatment Upcoming Encounters Date Type Department Care Team (Late st Contact Info) Description 05/19/2025 9:00 AM EDT Office Visit [facility] [address] [phone] Nguyen Maza, CUSTOMER SERVICE DRIVER [address] [address] Scheduled Orders Name Type Priority Associated Diagnoses Orde r Schedule Renal Function Panel, Plasma Lab Routine Renal insufficiency Expected: 03/30/2025 (Approximate), Expires: 09/30/2026 CBC and Differential Lab Routine Renal insufficiency Expected: 03/30/2025 (Approximate), Expires: 09/30/2026 Creatinine, Random, Urine Lab Routine Renal insufficiency Expected: 03/30/2025 (Approximate), Expires: 09/30/2026 Protein, Random, Urine with Creatinine Lab Routine Renal insufficiency Expected: 03/30/2025 (Approximate), Expires: 09/30/2026 Urinalysis with reflex microscopic (Culture NOT Included) Lab Routine Renal insufficiency Expected: 03/30/2025 (Approximate), Expires: 09/30/2026 PTH Intact Total Lab Routine Renal insufficiency Vitamin D insufficiency Expected: 03/30/2025 (Approximate), Expires: 09/30/2026 Vitamin D 25 Hydroxy Lab Routine Renal insufficiency Vitamin D insufficiency Expected: 03/30/2025 (Approximate), Expires: 09/30/2026 documented as of this encounter Visit Diagnoses Diagnosis Renal insufficiency- Primary Unspecified disorder of kidney and ureter Vitamin D insufficiency documented in this encounter Care Teams Vehicle Modification Technician Relationship Specialty Start Date End Date Campbell Ko MD [address] [place] [address] PCP - General 02/08/21 documented as of this encounter
--- OUTSIDE RECORDS SUMMARY | 2025-05-15 09:16 | XMS_ITS | Encounter Summary ---
Author Organization [employer] ([place], [place], [place], [place]) Address [address] [place] [address] Care Team Providers Care Industrial Roof Plumber Name Role Phone Unavailable Primary Care Provider Unavailabl e Encounter Details Date Type Department Care Team (Late st Contact Info) Description 12/30/2018 Transcribed Document [facility] [place] Family Medicine [address] [place] [address] ProviderMiah MD [address] [place], [place] [address] Social History Tobacco Use Types Packs/Day Years Used Date Smoking Tobacco: Never Assessed Sex and Gender Information Value Date Recorded Sex Assigned at Not on file Legal Sex Male 7:06 PM CDT Gender Identity Not on file Sexual Orientation Not on file documented as of this encounter Miscellaneous Notes * Cerner Conversion Note - Historical ProviderMD - 12/30/2018 12:47 PM CDT Post Visit Phone Call Entered On: 12/30/2018 12:51 EDT Performed On: 12/30/2018 12:47 EDT by JEANETTE KOTHARI RN Post Visit Phone Call Post Visit Phone Call History : First call, Other: wrong number JEANETTE KOTHARI, RICARDO - 12/30/2018 12:47 EDT documented in this encounter Plan of Treatment Not on file documented as of this encounter Visit Diagnoses Not on filedocumented in this encounter
--- OUTSIDE RECORDS SUMMARY | 2025-05-15 09:16 | XMS_ITS | Encounter Summary ---
Author Organization [employer] ([place], [place], [place], [place]) Address [address] [place] [address] Care Team Providers Care Dry Cleaning Counter Clerk Name Role Phone Unavailable Primary Care Provider Unavailabl e Encounter Details Date Type Department Care Team (Late st Contact Info) Description 12/27/2018 Transcribed Document [facility] Radiology [address] [place] [address] Cecilio Herrmann MD [address] [place], [place] [id number] Social History Tobacco Use Types Packs/Day Years Used Date Smoking Tobacco: Never Assessed Sex and Gender Information Value Date Recorded Sex Assigned at Not on file Legal Sex Male 7:06 PM CDT Gender Identity Not on file Sexual Orientation Not on file documented as of this encounter Miscellaneous Notes * Cerner Conversion Note - Cecilio Herrmann MD - 12/27/2018 11:25 AM EDT DATE OF ADMISSION: 12/25/2018 DATE OF DISCHARGE: 12/27/2018 CONSULTS: Include; 1. Nabil Whitt M.D. with Nephrology. 2. Hannah Soler M.D. GI. 3. Jhonatan Mishra M.D., Hem/Onc. 4. Marguerite Downs APRN. PRIMARY CARE DOCTOR: Solange Obrien NP, Rebel. WIG MAKER: Rebel Millard. ADMISSION DIAGNOSES: 1. Severe anemia with syncope and hypotension. 2. Dyspnea on exertion secondary to severe anemia. 3. Acute renal failure on chronic kidney disease. 4. Morbid obesity. 5. 6 feet 1 inches, 325 pounds. 6. Anxiety. 7. FULL CODE. DISCHARGE DIAGNOSES: 1. Severe anemia with syncope and hypotension. 2. Dyspnea on exertion secondary to severe anemia. 3. Acute renal failure on chronic kidney disease. 4. Morbid obesity. 5. 6 feet 1 inches, 325 pounds. 6. Anxiety. 7. FULL CODE. 8. Acute kidney injury on chronic kidney disease. 9. Iron deficiency anemia. PROCEDURES PERFORMED: Include EGD by Dr. Hannah Soler which shows esophagitis, no active bleeding. HISTORY OF PRESENT ILLNESS: Patient is a unfortunate morbidly obese 53-year-old white male with history of hypertension, dyslipidemia, anxiety, presents to [facility] having difficulty getting out of his car. He had a presyncopal episode observed by his , lasted about 30 seconds. Taken to the [facility], found to have hemoglobin of 5.5, blood pressure of 91/56, creatinine of 2.2. The transfer center requested transfer to [facility] ICU for GI consultation. Patient states he has been feeling progressively weak and tired since around Mago. Throughout September had multiple recurrent episodes of bright red blood per rectum and he thought that it was his hemorrhoids acting up again. He denies melena or black tarry stools, decreased appetite, chills, but no fevers. Denies use of anti-inflammatory drugs. He states he was told not to take anti-inflammatories in the past. Interestingly one month ago, he states he had a heart catheterization performed at [facility] in [place], which he states was negative. He complains of dyspnea on exertion. HOSPITAL COURSE: Patient is the ICU, transfused a unit of blood at the outside facility. He got a total of 4 units of packed red blood cells here in the hospital. Hemoglobin improved from 5.5, up to 7.4 up to 9.0. His creatinine would also improve as well going from 2.2, down to 1.55, down to 1.42. GI consulted, EGD performed by Dr. Hannah Soler. She stated the scope showed some esophagitis, but no active bleeding. Dr. Jhonatan Mishra from Hematology/Oncology was consulted on December 26. He recommended the patient follow up with outpatient colorectal surgeon. No colorectal surgeon is available at [facility]. There may be some interaction with stimulation of red cell production with chronic kidney disease. IV iron supplementation ordered by Hematology. Patient received three more weekly doses as an outpatient. Continue PPI for gastritis, which may decrease absorption of oral iron. PHYSICAL EXAMINATION: Performed on 12/27/2018 reveals: VITAL SIGNS: Temperature of 97.3, heart rate of 72, respiratory rate of 16, blood pressure 144/83, 95% on room air. GENERAL: No acute distress. Alert and oriented x3. Afebrile. CHEST: Clear to auscultation bilaterally. No wheezes, rales, or rhonchi. CARDIOVASCULAR: Regular rate and rhythm. S1, S2. No murmurs, rubs, or gallops. GI: Soft, nontender. Positive for obesity. EXTREMITIES: No cyanosis, clubbing, edema. Pulses 2+. PSYCHIATRIC: No anxiety or depression. Patient is very pleased with his significant improvement, feeling so much better with transfusions. No recurrent episodes of bright red blood per rectum. DISCHARGE CONDITION: Stable. DISPOSITION: Home with family. No strenuous activity. DIET: Advance as tolerated. Healthy heart diet. Counseled diet and exercise, does improves. FOLLOWUP INSTRUCTIONS: 1. Patient is to follow up with a yarn packer, has appointment scheduled later this month for a colonoscopy. 2. Follow up with Colorectal Surgery hopefully within the next week for possible hemorrhoid surgery. 3. Follow up with Dr. Nabil Whitt, [place] in two to three weeks. 4. Follow up with Hematology next week. Weekly infusions of IV iron. DISCHARGE MEDICATIONS: 1. Atorvastatin 20 mg p.o. q.h.s. 2. Fenofibrate 145 daily. 3. Amlodipine 5 mg daily. 4. Vitamin C 500 mg daily. 5. Bisoprolol 5 mg daily. 6. Colace 100 b.i.d. p.r.n. 7. Escitalopram 20 mg daily. 8. Ferrous sulfate 325 p.o. b.i.d. 9. Gabapentin 800 t.i.d. 10. Protonix 40 mg p.o. b.i.d. 11. MiraLAX 17 g daily. 12. Tramadol 50 q.4 h. p.r.n. pain. TIME SPENT: 35 minutes spent on followup and discharge of this pleasant gentleman, greater than 50% of the time spent on counseling and coordination. Cecilio Herrmann M.D. Dict: 12/27/2018 10:25:32 Trans: 12/27/2018 11:22:50 CC1: Cecilio Herrmann M.D. CC2: Solange Obrien NP, Rebel CC3: Dr. Bonilla, Night Worker, Rebel CC4: Jhonatan Mishra MD CC5: Alberta iY M.D. CC6: Benny Rose MD CC7: Hannah Soler MD CC8: Nabil Whitt M.D. documented in this encounter Plan of Treatment Not on file documented as of this encounter Visit Diagnoses Not on filedocumented in this encounter
--- OUTSIDE RECORDS SUMMARY | 2025-05-15 09:16 | XMS_ITS | Encounter Summary ---
Author Organization [employer] ([place], [place], [place], [place]) Address [address] [place] [address] Care Team Providers Care Hull Molder Name Role Phone Unavailable Primary Care Provider Unavailabl e Encounter Details Date Type Department Care Team (Late st Contact Info) Description 01/06/2019 Transcribed Document [facility] [facility] [place] [address] ProviderMiah MD [address] [place], [place] [id number] Social History Tobacco Use Types Packs/Day Years Used Date Smoking Tobacco: Never Assessed Sex and Gender Information Value Date Recorded Sex Assigned at Not on file Legal Sex Male 7:06 PM CDT Gender Identity Not on file Sexual Orientation Not on file documented as of this encounter Miscellaneous Notes * Cerner Conversion Note - Historical ProviderMD - 01/06/2019 1:00 PM CDT [facility] PreOp Summary Primary Physician: KELSEA CHAKRABORTY MD-GAE Finalized Date/Time: 01/06/19 12:45:33 Pt. Name: EDMAR BAKER /Sex: 1965 Male Med Rec #: [id number] Physician: KELSEA CHAKRABORTY MD-GAE Financial #: [id number] Pt. Type: O Room/Bed: Admit/Disch: 01/06/19 11:40:00 - Institution: [facility] PreOp Case Times Entry 1 In Preop 01/06/19 12:13:00 Ready for Holding n/a Room Patient Ready for 01/06/19 12:45:00 Surgery Patient Out of Preop 01/06/19 12:45:00 Patient Out of n/a Holding Room [facility] PreOp Case Times Audit 01/06/19 12:45:30 Privacy Specialist: KRISTIN Modifier: [email or web address] <+> 1 Patient Out of Preop <+> 1 Patient Ready for Surgery Finalized By: Ree Blanchard, RN Document Signatures Signed By: Ree Blanchard RN 01/06/19 12:45 Electronically signed by Jeanne [facility] Conversion Powder Mixer Cerner at 01/16/2023 8:44 AM CDT documented in this encounter Plan of Treatment Not on file documented as of this encounter Visit Diagnoses Not on filedocumented in this encounter
--- OUTSIDE RECORDS SUMMARY | 2025-05-15 09:16 | XMS_ITS | Encounter Summary ---
Author Organization [employer] ([place], [place], [place], [place]) Address [address] [place] [address] Care Team Providers Care Assistant Field Hockey Coach Name Role Phone Unavailable Primary Care Provider Unavailabl e Encounter Details Date Type Department Care Team (Late st Contact Info) Description 12/27/2018 Transcribed Document [facility] [place] [facility] [place] [address] ProviderMiah MD [address] [place], [place] [id number] Social History Tobacco Use Types Packs/Day Years Used Date Smoking Tobacco: Never Assessed Sex and Gender Information Value Date Recorded Sex Assigned at Not on file Legal Sex Male 7:06 PM CDT Gender Identity Not on file Sexual Orientation Not on file documented as of this encounter Miscellaneous Notes * Cerner Conversion Note - Historical ProviderMD - 12/27/2018 10:35 AM CDT Care Management Assessment/Plan Entered On: 12/27/2018 10:36 EDT Performed On: 12/27/2018 10:35 EDT by Karla Bullard, RN Care Management Note Anticipated Discharge Date : 12/28/2018 21:00 EDT Care Management Note : CM spoke with patient and at bedside. She is transportation home...[facility] Care Management Note Report : Karla Bullard, RN - 12/27/18 10:32:15 Discharge orders placed by Dr. Herrmann, cleared by hemoc after Iron transfusion today 12/27/18. Still awaiting clearence from other specialties. Home plan when cleared by providers...arh Karla Bullard, RN - 12/26/18 09:30:53 Chart review. Patient admitted with GI bleed from outlying facility. Low blood counts on admission, has had blood transfusions. Nephrology and gastroenterology consulted. Per notes patient was independent in all areas prior to admisison. LOW readmisison score. Home plan...arh Documentation Status Complete : Yes Karla Bullard RN - 12/27/2018 10:35 EDT documented in this encounter Plan of Treatment Not on file documented as of this encounter Visit Diagnoses Not on filedocumented in this encounter
--- OUTSIDE RECORDS SUMMARY | 2025-05-15 09:16 | XMS_ITS | Clinical Summary ---
Author Organization Healthcare Address [address] [place] [address] Care Team Providers Care Clerical Administrative Assistant Name Role Phone Campbell Ko MD Primary Care Provider [phone] Encounters Date Type Department Care Team Description 03/30/2025 Orders Only [facility] [address] [address] Nancy Calderon Renal insufficiency (Primary Dx); Vitamin D insufficiency from Last 3 Months Social History Tobacco Use Types Packs/Day Years Used Date Smoking Tobacco: Never Assessed Sex and Gender Information Value Date Recorded Sex Assigned at Not on file Legal Sex Male 8:40 PM EDT Gender Identity Not on file Sexual Orientation Not on file Plan of Treatment Upcoming Encounters Date Type Department Care Team (Late st Contact Info) Description 05/19/2025 9:00 AM EDT Office Visit [facility] [address] [address] Nguyen Maza, DIRECTOR OF IN SERVICE EDUCATION [address] [address] Health Maintenance Due Date Last Done Comments [facility]-Depression Screening 1965 [facility]-HIV Screening 1965 [facility]-Hepatitis C Screening 1965 [facility]-Medicare Annual Wellness (AWV) 1965 [facility]-/Child/Adol SDOH Screenings 1965 [facility]- SDOH Screenings 1984 [facility]-Adult SDOH Screenings 1984 [facility]-Hepatitis B Vaccines (1 of 3 - 19+ 3-dose series) 1985 CT Colonography 2011 Colonoscopy 2011 FIT-DNA 2011 FIT 2011 FOBT 2011 Sigmoidoscopy 2011 [facility]-Colorectal Cancer Screening 2011 [facility]-Pneumococcal Vaccine: 50+ Years (2 of 2 - PCV) 08/11/2017 08/11/2016 [facility]-Zoster Vaccines (2 of 2) 04/04/2024 02/08/2024 [id number]-23 Vaccine (4 - season) 2024 10/10/2021, 01/23/2021, 12/26/2020 [facility]-DTaP,Tdap,and Td Vaccines (2 - Td or Tdap) 02/15/2025 02/15/2015 [facility]-Influenza Vaccine (#1) 05/29/202511/16, 08/10/2019, 07/29/2018, Additional history exists HPV Vaccines Aged Out No longer eligi ble based on patient's age to complete this topic [facility]-HIB Vaccines Aged Out No longer e ligible based on patient's age to complete this topic [facility]-Hepatitis A Vaccines Aged Out No longer eligible based on patient's age to complete this topic [facility]-IPV Vaccines Aged Out No longer e ligible based on patient's age to complete this topic [facility]-Rotavirus Vaccines Aged Out No lo nger eligible based on patient's age to complete this topic Insurance Care Teams Clerical Administrative Assistant Relationship Specialty Start Date End Date Campbell Ko MD [address] [place] [address] [facility] - General 02/08/21
--- OUTSIDE RECORDS SUMMARY | 2025-05-15 09:16 | XMS_ITS | Encounter Summary ---
Author Organization [employer] ([place], [place], [place], [place]) Address [address] [place] [address] Care Team Providers Care Clay Temperer Name Role Phone Unavailable Primary Care Provider Unavailabl e Encounter Details Date Type Department Care Team (Late st Contact Info) Description 12/27/[address] [facility] [place] Medicine [facility] [place] [address] ProviderMiah MD [address] [place] [address] Social History Tobacco Use Types Packs/Day Years Used Date Smoking Tobacco: Never Assessed Sex and Gender Information Value Date Recorded Sex Assigned at Not on file Legal Sex Male 7:06 PM CDT Gender Identity Not on file Sexual Orientation Not on file documented as of this encounter Miscellaneous Notes * Cerner Conversion Note - Miah ProviderMD - 12/27/2018 12:16 PM CDT [address] , [place] [id number] Patient Copy Patient Information: Name: KATIE BAKER Current Date: 12/27/2018 12:16:20 : 1965 Patient Address: [address] [facility] Patient Attending Physician: ENRIQUE MACHADO MD Primary Care Provider: Primary Care Provider Phone: Discharge Diagnosis: Acute blood loss anemia Weight on Admission: 322 lb, 0 oz Weight at Discharge: 322 lb, 3 oz Comment: Follow-up Instructions: With: Address: When: DONALD ZAMUDIOMICHELLE [facility] [address] [place] [address] Business (1) Within 1 week Comments: Office to call with appoint/instructions With: Address: When: TAYLOR VILLAR [address] [place], [place] [id number] Business (1) 3:00 PM With: Address: When: Carlita Camille- roderick- cbc in 1 week Within 1 week With: Address: When: KELSEA CHAKRABORTY [address], [address] [place], [place] [id number] Business (1) Within 2 weeks With: Address: When: ODETTE IRIZARRYKIMMY [address] [facility], [address] [place] [address] Business (1) Within 3 to 5 days [...] quickly after you eat. Medicines ??? Take gbrg-pqv-pdautop and prescription medicines only as told by [...] This can help with dizziness. ??? Take lmru-ynh-yduevsr and prescription medicines only as told by [...] Follow these instructions at home: ??? Take zizz-spa-oskplny and prescription medicines only as told by [...] these instructions at home: Medicines ??? Take tunw-svj-cgkifss and prescription medicines only as told by [...] 10/17/2011 Document Revised: 06/03/2017 Document Reviewed: 06/03/2017 [employer] [facility] Interactive Patient Education ? 2017 [employer]. Medication Leaflets: docusate (oral/rectal) (DOK ue sate) [...] may report side effects to FDA at 3-633-LMB-5150. What other drugs will affect docusate? Other drugs may interact with docusate, including prescription and gqnu-wcb-lxsobpl medicines, vitamins, and herbal products. Tell each [...] to ensure that the information provided by [employer]. ('[employer]') is accurate, up-to-date, and complete, but no guarantee is made to that effect. Drug information contained herein may be time sensitive. [employer] information has been compiled for use by healthcare practitioners and consumers in the [place] and therefore [employer] does not warrant that uses outside of the [place] are appropriate, unless specifically indicated otherwise. [employer] drug information does not endorse drugs, diagnose patients or recommend therapy. [employer] drug information is an informational resource designed [...] effective or appropriate for any given patient. [employer] does not assume any responsibility for any aspect of healthcare administered with the aid of information [employer] provides. The information contained herein is not intended to cover all possible uses, directions, precautions, warnings, drug interactions, allergic reactions, or adverse effects. If you have questions about the drugs you are taking, check with your doctor, nurse or pharmacist. Copyright 7792-2271 [employer]. Version: 3.03. Revision Date: 11/09/2013. ferrous sulfate [...] may report side effects to FDA at 9-629-IYG-5615. What other drugs will affect ferrous sulfate? [...] all medications you use. This includes prescription, lysa-phe-wwrppbj, vitamin, and herbal products. Do not start [...] to ensure that the information provided by [employer]. ('[employer]') is accurate, up-to-date, and complete, but no guarantee is made to that effect. Drug information contained herein may be time sensitive. [employer] information has been compiled for use by healthcare practitioners and consumers in the [place] and therefore [employer] does not warrant that uses outside of the [place] are appropriate, unless specifically indicated otherwise. [employer] drug information does not endorse drugs, diagnose patients or recommend therapy. [employer] drug information is an informational resource designed [...] effective or appropriate for any given patient. [employer] does not assume any responsibility for any aspect of healthcare administered with the aid of information [employer] provides. The information contained herein is not intended to cover all possible uses, directions, precautions, warnings, drug interactions, allergic reactions, or adverse effects. If you have questions about the drugs you are taking, check with your doctor, nurse or pharmacist. Copyright 5034-6089 [employer]. Version: 4.03. Revision Date: 12/26/2011. polyethylene glycol 3350 (lita ee ETH il een GLYE kol) ClearLax, GaviLAX, Gialax, GlycoLax, MiraLax, HXQ3064, [employer] ClearLax What is the most important [...] may report side effects to FDA at 4-270-FVP-2793. What other drugs will affect polyethylene glycol 3350? Other drugs may interact with polyethylene glycol 3350, including prescription and gvey-eon-mmghmet medicines, vitamins, and herbal products. Tell each [...] to ensure that the information provided by [employer]. ('[employer]') is accurate, up-to-date, and complete, but no guarantee is made to that effect. Drug information contained herein may be time sensitive. [employer] information has been compiled for use by healthcare practitioners and consumers in the [place] and therefore [employer] does not warrant that uses outside of the [place] are appropriate, unless specifically indicated otherwise. [employer] drug information does not endorse drugs, diagnose patients or recommend therapy. [employer] drug information is an informational resource designed [...] effective or appropriate for any given patient. [facility] does not assume any responsibility for any aspect of healthcare administered with the aid of information [facility] provides. The information contained herein is not intended to cover all possible uses, directions, precautions, warnings, drug interactions, allergic reactions, or adverse effects. If you have questions about the drugs you are taking, check with your doctor, nurse or pharmacist. Copyright 3467-9834 [facility]. Version: 2.04. Revision Date: 12/31/2016. pantoprazole (oral/injection) [...] a broken bone while taking this medicine marine oil terminal superintendent or more than once per day. What [...] may report side effects to FDA at 6-971-IXS-1162. What other drugs will affect pantoprazole? Tell your doctor about all your other medicines, especially: ? digoxin; ?? methotrexate; or ?? a diuretic or 'water pill.' This list is not complete. Other drugs may affect pantoprazole, including prescription and sbjf-bjh-dcgeziy medicines, vitamins, and herbal products. Not all [...] to ensure that the information provided by [employer]. ('[employer]') is accurate, up-to-date, and complete, but no guarantee is made to that effect. Drug information contained herein may be time sensitive. [employer] information has been compiled for use by healthcare practitioners and consumers in the [place] and therefore [employer] does not warrant that uses outside of the [place] are appropriate, unless specifically indicated otherwise. [employer] drug information does not endorse drugs, diagnose patients or recommend therapy. [employer] drug information is an informational resource designed [...] effective or appropriate for any given patient. [employer] does not assume any responsibility for any aspect of healthcare administered with the aid of information [employer] provides. The information contained herein is not intended to cover all possible uses, directions, precautions, warnings, drug interactions, allergic reactions, or adverse effects. If you have questions about the drugs you are taking, check with your doctor, nurse or pharmacist. Copyright 9678-6923 [employer]. Version: 19.02. Revision Date: 03/23/2018. CIGARETTE SMOKING: The facts are clear, cigarette smoking will shorten your life. Smoking can cause many illnesses along the way. As a healthcare provider, we recommend that you stop smoking. Assistance with quitting is available by contacting 1-841-CREA-NOW. This is a free resource providing counseling, [...] Be sure to sign up for the [facility] patient portal, which gives you 24/ access to your medical information ??? including these discharge instructions ??? using your computer, smartphone, or tablet. Just go to [employer]) to get started. Questions? Call . [facility] would like to thank you for allowing us to assist you with your healthcare needs. I, KATIE BAKER, (or bank representative) have received the above patient education materials/instructions and have verbalized understanding: Patient Signature _ Date/Time Patient Book Jacket Cover Machine Operator Signature (if needed) Date/Time Clinician/Hospital Book Jacket Cover Machine Operator Signature (if needed) Date/Time documented in this encounter Plan of Treatment Not on file documented as of this encounter Visit Diagnoses Not on filedocumented in this encounter
--- OUTSIDE RECORDS SUMMARY | 2025-05-15 09:16 | XMS_ITS | Encounter Summary ---
Author Organization [employer] ([place], [place], [place], [place]) Address [address] [place] [address] Care Team Providers Care Promotions Officer Name Role Phone Unavailable Primary Care Provider Unavailabl e Encounter Details Date Type Department Care Team (Late st Contact Info) Description 12/27/2018 Transcribed Document [facility] [place] Family Medicine [address] [place] [address] ProviderMiah MD [address] [place] [address] Social History Tobacco Use Types Packs/Day Years Used Date Smoking Tobacco: Never Assessed Sex and Gender Information Value Date Recorded Sex Assigned at Not on file Legal Sex Male 7:06 PM CDT Gender Identity Not on file Sexual Orientation Not on file documented as of this encounter Miscellaneous Notes * Cerner Conversion Note - Historical ProviderMD - 12/27/2018 2:00 AM CDT Cooler Man Details Entered On: 12/27/2018 0:16 EDT Performed On: 12/27/2018 2:00 EDT by June Torres RN Order Details Transport Mode Order Detail : Wheelchair Isolation Precautions Order Detail : Standard Precautions Order Detail : N/A IV Order Detail : 1 Oxygen Order Detail : 0 Nurse Collect Order Detail : 0 Lift/Transfer : Independent Central Line Order Detail : No Room Service : Appropriate Arterial Line : No June Torres, RICARDO - 12/27/2018 0:16 EDT documented in this encounter Plan of Treatment Not on file documented as of this encounter Visit Diagnoses Not on filedocumented in this encounter
--- OUTSIDE RECORDS SUMMARY | 2025-05-15 09:16 | XMS_ITS | Encounter Summary ---
Author Organization [employer] ([place], [place], [place], [place]) Address [address] [place] [address] Care Team Providers Care Merchandise Displayer Name Role Phone Unavailable Primary Care Provider Unavailabl e Encounter Details Date Type Department Care Team (Late st Contact Info) Description 12/27/2018 Transcribed Document [facility] [place] Family Medicine [facility] [place] [address] ProviderMiah MD [address], [place] [id number] Social History Tobacco Use Types Packs/Day Years Used Date Smoking Tobacco: Never Assessed Sex and Gender Information Value Date Recorded Sex Assigned at Not on file Legal Sex Male 7:06 PM CDT Gender Identity Not on file Sexual Orientation Not on file documented as of this encounter Miscellaneous Notes * Cerner Conversion Note - Miah ProviderMD - 12/27/2018 12:19 PM CDT [address] , [place] [id number] Patient Copy Patient Information: Name: KATIE BAKER Current Date: 12/27/2018 12:19:57 : 1965 Patient Address: [address] Patient Attending Physician: ENRIQUE MACHADO MD Primary Care Provider: Primary Care Provider Phone: Discharge Diagnosis: Acute blood loss anemia Weight on Admission: 322 lb, 0 oz Weight at Discharge: 322 lb, 3 oz Comment: Follow-up Instructions: With: Address: When: Carlita Obrien- roderick- cbc in 1 week Within 1 week Comments: Call for follow up appointment With: Address: When: KELSEA CHAKRABORTY [address] [facility], [address] [place] [address] Business (1) 12:00 PM Comments: [phone]- call this number if you cannot do this day. This appointment is for a colonoscopy. Your prep will be called into the pharmacy and the office will send you instructions With: Address: When: DONALD JOHNSON [address] [facility], [address] [place], [place] [id number] Business (1) Within 1 week Comments: Office to call with appoint/instructions With: Address: When: TAYLOR AUREA [address] [place] [address] Business (1) 3:00 PM Discharge Instructions: Diet after Discharge: Resume usual [...] quickly after you eat. Medicines ??? Take rgxy-gqx-ktnacii and prescription medicines only as told by [...] 06/02/2017 Elsevier Interactive Patient Education ? 2017 [employer] Near-Syncope Introduction Near-syncope is when you [...] This can help with dizziness. ??? Take ptjy-tlw-whmbqit and prescription medicines only as told by [...] Follow these instructions at home: ??? Take cztm-sfm-uuyrles and prescription medicines only as told by [...] these instructions at home: Medicines ??? Take mias-djf-cpwfjyv and prescription medicines only as told by [...] 10/17/2011 Document Revised: 06/03/2017 Document Reviewed: 06/03/2017 [employer] Interactive Patient Education ? 2017 [employer]. Medication Leaflets: docusate (oral/rectal) (DOK ue sate) [...] 8 ounces of milk, fruit juice, or formula and drink the mixture right away. [...] may report side effects to FDA at 9-571-GZF-7395. What other drugs will affect docusate? Other drugs may interact with docusate, including prescription and uvzf-mry-hrvgooe medicines, vitamins, and herbal products. Tell each [...] to ensure that the information provided by [employer]. ('Mult[employer]') is accurate, up-to-date, and complete, but no guarantee is made to that effect. Drug information contained herein may be time sensitive. [employer] information has been compiled for use by healthcare practitioners and consumers in the [place] and therefore [employer] does not warrant that uses outside of the [place] are appropriate, unless specifically indicated otherwise. [employer] drug information does not endorse drugs, diagnose patients or recommend therapy. [employer] drug information is an informational resource designed [...] effective or appropriate for any given patient. [employer] does not assume any responsibility for any aspect of healthcare administered with the aid of information [employer] provides. The information contained herein is not intended to cover all possible uses, directions, precautions, warnings, drug interactions, allergic reactions, or adverse effects. If you have questions about the drugs you are taking, check with your doctor, nurse or pharmacist. Copyright 6204-4045 [employer]. Version: 3.03. Revision Date: 11/09/2013. ferrous sulfate [...] may report side effects to FDA at 0-970-ICN-7243. What other drugs will affect ferrous sulfate? [...] all medications you use. This includes prescription, zesu-gbm-iynbzmg, vitamin, and herbal products. Do not start [...] to ensure that the information provided by [employer]. ('Mult[employer]') is accurate, up-to-date, and complete, but no guarantee is made to that effect. Drug information contained herein may be time sensitive. Sleep.[employer] information has been compiled for use by healthcare practitioners and consumers in the [place] and therefore [employer] does not warrant that uses outside of the [place] are appropriate, unless specifically indicated otherwise. [employer]'s drug information does not endorse drugs, diagnose patients or recommend therapy. [employer] drug information is an informational resource designed [...] effective or appropriate for any given patient. [employer] does not assume any responsibility for any aspect of healthcare administered with the aid of information [employer] provides. The information contained herein is not intended to cover all possible uses, directions, precautions, warnings, drug interactions, allergic reactions, or adverse effects. If you have questions about the drugs you are taking, check with your doctor, nurse or pharmacist. Copyright 7607-0398 [employer]. Version: 4.03. Revision Date: 12/26/2011. polyethylene glycol 3350 (lita ee ETH il een GLYE kol) ClearLax, GaviLAX, Gialax, GlycoLax, MiraLax, ONX1032, SunMark ClearLax What is the most important [...] may report side effects to FDA at 7-223-JKG-1769. What other drugs will affect polyethylene glycol 3350? Other drugs may interact with polyethylene glycol 3350, including prescription and vulu-hcu-ulwpola medicines, vitamins, and herbal products. Tell each [...] to ensure that the information provided by [employer]. ('Multum') is accurate, up-to-date, and complete, but no guarantee is made to that effect. Drug information contained herein may be time sensitive. Sleep.FM information has been compiled for use by healthcare practitioners and consumers in the [place] and therefore Sleep[employer] does not warrant that uses outside of the [place] are appropriate, unless specifically indicated otherwise. Sleep.FM's drug information does not endorse drugs, diagnose patients or recommend therapy. [employer] drug information is an informational resource designed [...] effective or appropriate for any given patient. [facility] does not assume any responsibility for any aspect of healthcare administered with the aid of information [facility] provides. The information contained herein is not intended to cover all possible uses, directions, precautions, warnings, drug interactions, allergic reactions, or adverse effects. If you have questions about the drugs you are taking, check with your doctor, nurse or pharmacist. Copyright 3250-6000 [facility]. Version: 2.04. Revision Date: 12/31/2016. pantoprazole (oral/injection) [...] a broken bone while taking this medicine terminal carman or more than once per day. What [...] you also take medicine that contains rilpivirine (Natividad Nuñez Juluca, Ruth); or ?? you are allergic to pantoprazole [...] may report side effects to FDA at 5-644-NHQ-7355. What other drugs will affect pantoprazole? Tell your doctor about all your other medicines, especially: ? digoxin; ?? methotrexate; or ?? a diuretic or 'water pill.' This list is not complete. Other drugs may affect pantoprazole, including prescription and lkdl-cqr-anwrntk medicines, vitamins, and herbal products. Not all [...] to ensure that the information provided by [employer]. ('Mult[employer]') is accurate, up-to-date, and complete, but no guarantee is made to that effect. Drug information contained herein may be time sensitive. Sleep.FM information has been compiled for use by healthcare practitioners and consumers in the [place] and therefore Sleep[employer] does not warrant that uses outside of the [place] are appropriate, unless specifically indicated otherwise. [employer] drug information does not endorse drugs, diagnose patients or recommend therapy. [employer] drug information is an informational resource designed [...] effective or appropriate for any given patient. [employer] does not assume any responsibility for any aspect of healthcare administered with the aid of information Sleep[employer] provides. The information contained herein is not intended to cover all possible uses, directions, precautions, warnings, drug interactions, allergic reactions, or adverse effects. If you have questions about the drugs you are taking, check with your doctor, nurse or pharmacist. Copyright 3635-5585 [employer]. Version: 19.02. Revision Date: 03/23/2018. CIGARETTE SMOKING: The facts are clear, cigarette smoking will shorten your life. Smoking can cause many illnesses along the way. As a healthcare provider, we recommend that you stop smoking. Assistance with quitting is available by contacting 3-115-IFFT-NOW. This is a free resource providing counseling, [...] Be sure to sign up for the Mail[employer] patient portal, which gives you 20/04 access to your medical information ??? including these discharge instructions ??? using your computer, smartphone, or tablet. Just go to [employer] to get started. Questions? Call . [facility] would like to thank you for allowing us to assist you with your healthcare needs. 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
--- OUTSIDE RECORDS SUMMARY | 2025-05-15 09:16 | XMS_ITS | Referral Summary ---
Author Organization [employer] ([place], [place], [place], [place]) Address [address] [place] [address] Care Team Providers Care Sow Farm Manager Name Role Phone Unavailable Primary Care [...]
--- OUTSIDE RECORDS SUMMARY | 2025-05-15 09:16 | XMS_ITS | Encounter Summary ---
Author Organization [employer] ([place], [place], [place], [place]) Address [address] [place] [address] Care Team Providers Care Pairer Name Role Phone Unavailable Primary Care Provider Unavailabl e Encounter Details Date Type Department Care Team (Late st Contact Info) Description 12/27/2018 Transcribed Document [facility] [place] [facility] [place] [address] ProviderMiah MD [address] [place], [place] [id number] Social History Tobacco Use Types Packs/Day Years Used Date Smoking Tobacco: Never Assessed Sex and Gender Information Value Date Recorded Sex Assigned at Not on file Legal Sex Male 7:06 PM CDT Gender Identity Not on file Sexual Orientation Not on file documented as of this encounter Miscellaneous Notes * Cerner Conversion Note - Historical ProviderMD - 12/27/2018 4:00 AM CDT Height and Weight, Routine Entered On: 12/27/2018 6:19 EDT Performed On: 12/27/2018 4:00 EDT by June Torres RN Height and Weight, Routine Routine Weight Source : Standing scale Routine Weight Entry Format : [place] Routine Weight, Pounds : 322 lb Routine Weight, Ounces : 3 oz Routine Weight Calculation : 146.45 kg Height Source : Chart Height Entry Format : [place] Height, Feet : 6 ft Height, Inches : 1 Inch Clinical Height : 185.42 cm Body Surface Area (BSA), Routine : 2.64 m2 Body Mass Index (BMI), Routine : 42.6 kg/m2 June Torres RN - 12/27/2018 6:19 EDT documented in this encounter Plan of Treatment Not on file documented as of this encounter Visit Diagnoses Not on filedocumented in this encounter
--- OUTSIDE RECORDS SUMMARY | 2025-05-15 09:16 | XMS_ITS | Encounter Summary ---
Author Organization [employer] ([place], [place], [place], [place]) Address [address] [place] [address] Care Team Providers Care Communications Station Manager Name Role Phone Unavailable Primary Care Provider Unavailabl e Encounter Details Date Type Department Care Team (Late st Contact Info) Description 12/27/2018 Transcribed Document [facility] [place] Family Medicine [address] [place] [address] ProviderMiah MD [address] [place] [address] Social History Tobacco Use Types Packs/Day Years Used Date Smoking Tobacco: Never Assessed Sex and Gender Information Value Date Recorded Sex Assigned at Not on file Legal Sex Male 7:06 PM CDT Gender Identity Not on file Sexual Orientation Not on file documented as of this encounter Miscellaneous Notes * Cerner Conversion Note - Historical ProviderMD - 12/27/2018 5:00 AM CDT Chart Check - Review Order Profile Entered On: 12/27/2018 3:39 EDT Performed On: 12/27/2018 5:00 EDT by June Torres RN Chart Check Chart Reviewed Date and Time : 12/27/2018 3:39 EDT Powerplans Initiated/Discontinued as Appropriate : Yes All Active Orders Reviewed : Yes June Torres RN - 12/27/2018 3:39 EDT documented in this encounter Plan of Treatment Not on file documented as of this encounter Visit Diagnoses Not on filedocumented in this encounter
--- OUTSIDE RECORDS SUMMARY | 2025-05-15 09:16 | XMS_ITS | Encounter Summary ---
Author Organization [employer] ([place], [place], [place], [place]) Address [address] [place] [address] Care Team Providers Care Validation Technician Name Role Phone Unavailable Primary Care Provider Unavailabl e Encounter Details Date Type Department Care Team (Late st Contact Info) Description 12/27/2018 Transcribed Document [facility] [place] [address] [place] [address] ProviderMiah MD [address] [place] [address] Social History Tobacco Use Types Packs/Day Years Used Date Smoking Tobacco: Never Assessed Sex and Gender Information Value Date Recorded Sex Assigned at Not on file Legal Sex Male 7:06 PM CDT Gender Identity Not on file Sexual Orientation Not on file documented as of this encounter Miscellaneous Notes * Cerner Conversion Note - Historical ProviderMD - 12/27/2018 11:56 AM CDT Discharge Instructions Entered On: 12/27/2018 11:56 EDT Performed On: 12/27/2018 11:56 EDT by Melissa Lincoln RN DC Instructions HWD Stroke/TIA Discharge Ins : N/A Heart Failure Discharge Ins : N/A Warfarin Discharge Ins : N/A Diet After Discharge : Resume usual diet as tolerated Activity After Discharge : As tolerated Melissa Lincoln RN - 12/27/2018 11:56 EDT documented in this encounter Plan of Treatment Not on file documented as of this encounter Visit Diagnoses Not on filedocumented in this encounter
[2025-05-15 09:19] LABS: Microscopic, Urine URINE MICROSCOPIC (MICROSCOPIC)
[2025-05-15 09:36] LABS: Bilirubin,Urine Negative (Negative); Color,Urine YELLOW (Yellow); Glucose,Urine (UA) 3+ (Negative); Hematocrit 43.8 % (42.0-52.0); Hemoglobin 14.6 g/dL (14.1-18.0); Immature Granulocytes % 0.5 %; Ketones,Urine Negative (Negative); Leukocyte Esterase,Urine TRACE (Negative); Mean Corpuscular HGB Conc 33.3 g/dL (31.8-35.4); Mean Corpuscular Hemoglobin 30.3 pg (27.0-31.2); Mean Corpuscular Volume 90.9 fl (80-94); Nucleated Red Blood Cells % 0 %; PH,Urine 6.5 (5.0-8.5); Platelet Count 314 K/mm3 (142-424); Protein,Urine Negative (Negative); Red Blood Count 4.82 M/mm3 (4.60-6.20); Red Cell Distribution Width-SD 44.1 fL; Specific Gravity, Urine 1.010 (1.005-1.030); Urobilinogen,Urine 0.2 EU/dl (0.2); White Blood Count 7.8 K/mm3 (4.8-10.8)
[2025-05-15 09:58] LABS: Bacteria,Urine Trace /lpf
[2025-05-15 16:08] LABS: Albumin Level 4.4 g/dl (3.5-5.0); Anion Gap 11.7 mEq/L (5-15); Blood Urea Nitrogen 15 mg/dl (9-20); Calcium 10.3 mg/dl (8.4-10.2); Carbon Dioxide 31 mmol/L (22.0-30.0); Chloride 101 mmol/L (98-107); Creatinine,Serum 1.00 mg/dl (0.66-1.25); Estimated Glomerular Filt Rate 77 ml/min (>60); GFR (African American) 93 ML/MIN (>60); Glucose 140 mg/dl (74-100); Phosphorous 3.9 mg/dl (2.5-4.5); Potassium 4.7 mmoL/L (3.5-5.1); Sodium 139 mmol/L (136-145)
[2025-05-15 16:27] LABS: 25-OH Vitamin D, Total 24.4 ng/mL (30-100)
== END 2025-05-15 23:59 | disposition home or self-care (01) ==
LOC: LAB 09:12
PROVIDERS: PCP Nurse Practitioner Family; Visit Provider Nurse Practitioner
DX: N28.9 Disorder of kidney and ureter, unspecified (principal); E55.9 Vitamin D deficiency, unspecified
CPT/HCPCS: 36415; 80069; 81001; 82306; 82570; 83970; 84156; 85025; 87086